=== PATIENT | male | born 1945 | race Caucasian/White ===

== ENCOUNTER 2017-02-21 20:24 | Emergency (ER) | payer MEDICARE, BC ==
--- NOTE | 2017-02-21 22:41 | UC ---
Eye Complaint HPI - HPI Summary HPI Summary: The patient comes in today for: 1. Red eyes: Onset: The patient is not able to give a history. The report comes from his who brings him in because the daughter thought he might have "pink eye." That is the only reason she brought him in. Palliative/provocative: Nothing. Quality: No pain. Region: Neither the patient nor the know which eye has "pink eye." Severity: 0/10 Associated symptoms: Discharge: None. Vision: No change. Previous eye problems: None. * - History of Current Complaint Chief Complaint: UCEye Stated Complaint: EYE COMPLAINT Time Seen by Provider: 02/21/17 22:32 Hx Obtained From: Patient - Allergies/Home Medications Allergies/Adverse Reactions: Allergies Allergy/AdvReac Type Severity Reaction Status Date / Time Shellfish Allergy Allergy Mild Nausea Verified 02/21/17 21:54 PMH/Surg Hx/FS Hx/Imm Hx Previously Healthy: No - "weak bones." Endocrine History Of: Reports: Dyslipidemia Denies: Diabetes, Thyroid Disease, Hyperthyroidism, Hypothyroidism Cardiovascular History Of: Reports: Hypertension Denies: Cardiac Disorders, Pacemaker/ICD, Myocardial Infarction, Congestive Heart Failure, Atrial Fibrillation, Deep Vein Thrombosis, Bleeding Disorders Respiratory History Of: Denies: COPD, Asthma, Bronchitis, Pneumonia, Pulmonary Embolism GI/ History Of: Denies: Gastroesophageal Reflux, Ulcer, Gastrointestinal Bleed, Gall Bladder Disease, Kidney Stones, Diverticulitis, Renal Disease, Urosepsis Neurological History Of: Denies: TIA, CVA, Dementia, Seizures, Migraine Psychological History Of: Denies: Anxiety, Depression, Bipolar Disorder, Schizophrenia, Post Traumatic Stress Disorder Cancer History Of: Denies: Lung Cancer, Colorectal Cancer, Breast Cancer, Prostate Cancer, Cervical Cancer Other History Of: Anticoagulant Therapy - Baby aspirin 81 mg daily. Negative For: HIV, Hepatitis B, Hepatitis C - Surgical History Surgical History: Yes Surgery Procedure, Year, and Place: Back. Finger Amputations. Carotid Arteries - Family History Known Family History: Negative: Cardiac Disease, Hypertension - Social History Occupation: Retired Lives: With Family Alcohol Use: None Substance Use Type: None Smoking Status (MU): Former Smoker When Did the Patient Quit Smoking/Using Tobacco: 2012 - Immunization History Most Recent Influenza Vaccination: 2016 Most Recent Pneumonia Vaccination: 2016 Review of Systems Constitutional: Negative Skin: Negative Eyes: Negative ENT: Negative Respiratory: Negative Cardiovascular: Negative Gastrointestinal: Negative Genitourinary: Negative All Other Systems Reviewed And Are Negative: Yes Physical Exam Triage Information Reviewed: Yes Appearance: Well-Appearing, No Pain Distress, Well-Nourished, Other: - The states that he will stare off into space from time to time, but otherwise was not showing any mental problems. He was a bit slow in answering my questions, but according to his age, not much different than expected. He does not have any complaints. Vital Signs: Initial Vital Signs Temp 101 F 02/21/17 22:00 Pulse 104 02/21/17 22:00 Resp 20 02/21/17 22:00 BP 161/67 02/21/17 22:00 Pulse Ox 100 02/21/17 22:00 Vital Signs Reviewed: Yes Eyes: Positive: Conjunctiva Clear. Negative: Discharge ENT: Positive: Hearing grossly normal. Negative: Pharyngeal erythema, Nasal congestion, Nasal drainage, Tonsillar swelling, Tonsillar exudate Dental: Negative: Gross Decay/Caries @, Dental Fracture @ Neck: Positive: Supple, Nontender, No Lymphadenopathy. Negative: Nuchal Rigidity Respiratory: Positive: Lungs clear, No respiratory distress, No accessory muscle use. Negative: Decreased breath sounds, Rhonchi Cardiovascular: Positive: RRR, No Murmur Abdomen Description: Positive: Nontender, No Organomegaly, Soft. Negative: Distended, Guarding Musculoskeletal: Positive: Strength Intact, ROM Intact, No Edema Neurological: Positive: Alert, Muscle Tone Normal Psychological: Positive: Age Appropriate Behavior, Consolable Skin: Negative: rashes, breakdown Diagnostics - Laboratory Diagnostic Studies Completed/Ordered: Urine screen: Specific gravity: 1.025. WBC: None. Nitrite: (-). Blood: 1+. Protein: 2+. Glucose: (-) Eye Complaint Course/Dx - Course Course Of Treatment: The patient was told that his urine was unremarkable for infection. He was offered Tylenol for this fever, but he declined. He states that he did not have any problems and that he felt normal. - Differential Dx/Diagnosis Differential Diagnosis/HQI/PQRI: Conjunctivitis, Foreign Body, Glaucoma Provider Diagnoses: Conjunctivitis resolved. Discharge - Discharge Plan Condition: Stable Disposition: HOME Patient Education Materials: Conjunctivitis (ED), Fever in Adults (ED) Referrals: Govind Vann MD [Primary Care Provider] - 3 Days (Please see your primary care provider in the next 2-3 days for re-evaluation. If you get worse, please be seen sooner.)
[2017-02-21 22:47] VITALS: BP 136/70
== END 2017-02-22 00:03 | disposition home or self-care (01) ==
LOC: UCEAST 20:24
DX: H57.8 Other specified disorders of eye and adnexa (principal); E78.5 Hyperlipidemia, unspecified; I10 Essential (primary) hypertension; Z79.82 Long term (current) use of aspirin; Z89.029 Acquired absence of unspecified finger(s); Z87.891 Personal history of nicotine dependence
CPT/HCPCS: 81003; 99212; G0463

== ENCOUNTER 2017-02-22 13:22 | Emergency (ER) | payer MEDICARE, BC ==
[2017-02-22] MEDS ORDERED: NS 0.9% 1000 ML* 1,000 ML IV ONE (14:13)
--- NOTE | 2017-02-22 14:37 | RAD ---
HISTORY: Altered mental status COMPARISONS: June 07, 2009 TECHNIQUE: Multiple contiguous axial CT scans were obtained of the head without intravenous contrast. FINDINGS: HEMORRHAGE/INFARCT: There is no hemorrhage or acute infarct. MASSES/SHIFT: There is no mass or shift. EXTRA-AXIAL SPACES: There are no extra-axial fluid collections. SULCI AND VENTRICLES: The sulci and ventricles are normal in size and position for the patient's stated age. CEREBRUM: There are no focal parenchymal abnormalities. BRAINSTEM: There are no focal parenchymal abnormalities. CEREBELLUM: There are no focal parenchymal abnormalities. VESSELS: The vessels are grossly normal. PARANASAL SINUSES: There are-fluid levels within the maxillary sinuses bilaterally. There is mucosal thickening of ethmoid air cells. ORBITS: The orbits are unremarkable. BONES AND SOFT TISSUE: No bone or soft tissue abnormalities are noted. OTHER: None IMPRESSION: NO ACUTE INTRACRANIAL PATHOLOGY. MODERATE SINUS MUCOSAL INFLAMMATORY DISEASE, WITH AIR-FLUID LEVELS IN THE MAXILLARY SINUSES. IN THE CORRECT CLINICAL SETTING, THIS MAY REPRESENT ACUTE SINUSITIS
[2017-02-22 14:55] LABS: Hematocrit 39 % (42-52); Hemoglobin 13.1 g/dl (14.0-18.0); Mean Corpuscular HGB Conc 33 g/dl (31-36); Mean Corpuscular Hemoglobin 32 pg (27-31); Mean Corpuscular Volume 96 fL (80-94); Mean Platelet Volume 8 um3 (7.4-10.4); Red Cell Distribution Width 13 % (10.5-15); White Blood Count 8.3 10^3/ul (3.5-10.8)
--- NOTE | 2017-02-22 14:58 | RAD ---
HISTORY: Altered mental status COMPARISONS: April 30, 2012 VIEWS:1: Single frontal portable view of the chest at 2:45 PM FINDINGS: LINES AND TUBES: None. CARDIOMEDIASTINAL SILHOUETTE: The cardiomediastinal silhouette is normal for portable technique. PLEURA: The costophrenic angles are sharp. No pleural abnormalities are noted. LUNG PARENCHYMA: There is hyperinflation. ABDOMEN: The upper abdomen is clear. There is no subphrenic gas. BONES AND SOFT TISSUES: No bone or soft tissue abnormalities are noted. IMPRESSION: NO ACTIVE CARDIOPULMONARY DISEASE.
[2017-02-22 14:59] LABS: Urine Bacteria Absent (Absent); Urine Bilirubin Negative (Negative); Urine Glucose 1+(50 mg/dL) (Negative); Urine Nitrite Negative (Negative)
[2017-02-22 15:13] LABS: ALT 14 U/L (7-52); AST 25 U/L (13-39); Albumin 4.1 g/dL (3.2-5.2); Alkaline Phosphatase 56 U/L (34-104); Anion Gap 8 mmol/L (2-11); BUN/Creatinine Ratio 15.6 (8-20); Blood Urea Nitrogen 12 mg/dL (6-24); CO2 Carbon Dioxide 26 mmol/L (22-32); Calcium 9.5 mg/dL (8.6-10.3); Chloride 95 mmol/L (101-111); Creatine Kinase 292 U/L (10-223); EGFR African American 128.8 (>60); EGFR Non-African American 100.2 (>60); Glucose 101 mg/dL (70-100); Potassium 3.8 mmol/L (3.5-5.0); Sodium 129 mmol/L (133-145); Total Protein 7.1 g/dL (6.4-8.9); Troponin I 0.01 ng/mL (<0.04)
[2017-02-22 15:14] LABS: Benzodiazepine Urine Screen None Detected (None Detect)
[2017-02-22 15:41] LABS: Acetaminophen < 15 mcg/mL; Alcohol < 10 mg/dL (<10)
[2017-02-22 15:50] LABS: TSH (Thyroid Stimulating Horm) 1.39 mcIU/mL (0.34-5.60)
[2017-02-22] MEDS ORDERED: Fluticasone NASAL SPRAY 50MCG* 16 gm SPRAY BTL BOTH NARES ONE (17:24)
[2017-02-22] MEDS ORDERED: Amoxicillin/Clavulanate TAB* 875 MG PO ONE (17:24)
[2017-02-22 17:59] VITALS: BP 126/59
--- NOTE | 2017-02-23 07:46 | ED ---
Glenis Causey Matthew, scribed for Rajiv Garcia MD on 02/22/17 at 1411 . Altered Mental Status - HPI Summary HPI Summary: A 71 y/o male presents to the ED with confusion since 08:00. Since onset his confusion has mostly alleviated. He is A&Ox3, but slow to answer questions. Per the , the patient was found staring off and confused this morning at 08:00. He was unable to get dressed at that time and his had to help him. Yesterday, the patient was normal. He's not having any pain currently. He had a fever of 100.9 last night and eye redness. He was taken to [facility], at that time, because his daughter thought he had "pink eye". He's also c/o of post nasal drip and rhinorrhea. - History Of Current Complaint Chief Complaint: EDNeurologicalDeficit Stated Complaint: CONFUSSION Time Seen by Provider: 02/22/17 13:52 Hx Obtained From: Patient, Family/Quality Intern Onset/Duration: Resolved Timing: Lasting Hours Severity Initially: Moderate Severity Currently: Mild Character: Confusion Aggravating Factor(s): Nothing Alleviating Factor(s): Nothing Associated Signs And Symptoms: Positive: Fever - yesterday since resolved - Allergies/Home Medications Allergies/Adverse Reactions: Allergies Allergy/AdvReac Type Severity Reaction Status Date / Time Shellfish Allergy Allergy Mild Nausea Verified 02/21/17 21:54 Home Medications: Home Medications Alendronate (NF) [Fosamax (NF)] 70 mg PO WEEKLY 02/22/17 [History Confirmed 10/29] Aspirin Low Dose CHEW TAB* [Aspirin Low Dose TAB*] 81 mg PO DAILY 02/22/17 [ History Confirmed 02/22/17] Calcium Carbonate-Cholecalcife [Calcium 600 + D 600-200 mg-Unit] 2 tab PO DAILY 02/22/17 [History Confirmed 02/22/17] Losartan TAB* [Cozaar TAB*] 50 mg PO DAILY 02/22/17 [History Confirmed 02/22/17] Rosuvastatin (NF) [Crestor (NF)] 5 mg PO DAILY 02/22/17 [History Confirmed 02/22] PMH/Surg Hx/FS Hx/Imm Hx Endocrine/Hematology History: Reports: Hx Anticoagulant Therapy - Baby aspirin 81 mg daily. Denies: Hx Diabetes, Hx Thyroid Disease Cardiovascular History: Reports: Hx Hypercholesterolemia, Hx Hypertension Denies: Hx Congestive Heart Failure, Hx Deep Vein Thrombosis, Hx Myocardial Infarction, Hx Pacemaker/ICD Respiratory History: Denies: Hx Asthma, Hx Chronic Obstructive Pulmonary Disease (COPD), Hx Lung Cancer, Hx Pneumonia, Hx Pulmonary Embolism GI History: Denies: Hx Gall Bladder Disease, Hx Gastrointestinal Bleed, Hx Ulcer, Hx Urosepsis History: Denies: Hx Kidney Stones, Hx Renal Disease Musculoskeletal History: Reports: Other Musculoskeletal History - back surgery Neurological History: Denies: Hx Dementia, Hx Migraine, Hx Seizures, Hx Transient Ischemic Attacks (TIA) Psychiatric History: Denies: Hx Anxiety, Hx Depression, Hx Schizophrenia, Hx Bipolar Disorder - Surgical History Surgery Procedure, Year, and Place: Back. Finger Amputations. Carotid Arteries Infectious Disease History: No Infectious Disease History: Denies: Traveled Outside the [place] in Last 30 Days - Family History Known Family History: Negative: Cardiac Disease, Hypertension - Social History Alcohol Use: None Substance Use Type: Reports: None Smoking Status (MU): Former Smoker Review of Systems Constitutional: Negative Positive: Fever - yesterday since resolved Eyes: Negative ENT: Other - post nasal drip Positive: Nasal Discharge Cardiovascular: Negative Respiratory: Negative Gastrointestinal: Negative Genitourinary: Negative Musculoskeletal: Negative Skin: Negative Neurological: Other - confusion Psychological: Normal All Other Systems Reviewed And Are Negative: Yes Physical Exam - Summary Physical Exam Summary: VITAL SIGNS: Reviewed. GENERAL: Patient is a well developed and nourished male who is lying comfortable in the stretcher. Patient is not in any acute respiratory distress. HEAD AND FACE: No signs of trauma. No ecchymosis, hematomas or skull depressions. No sinus tenderness. EYES: PERRLA, EOMI x 2, No injected conjunctiva, no nystagmus. No photophobia. EARS: Hearing grossly intact. Ear canals and tympanic membranes are within normal limits. MOUTH: Oropharynx within normal limits. NECK: Supple, trachea is midline, no adenopathy, no JVD, no carotid bruit, no c- spine tenderness, neck with full ROM. No meningeal signs, no Kernig's or brudzinskis signs. CHEST: Symmetric, no tenderness at palpation LUNGS: Clear to auscultation bilaterally. No wheezing or crackles. CVS: Regular rate and rhythm, S1 and S2 present, no murmurs or gallops appreciated. ABDOMEN: Soft, non-tender. No signs of distention. No rebound no guarding, and no masses palpated. Bowel sounds are normal. EXTREMITIES: FROM in all major joints, no edema, no cyanosis or clubbing. NEURO: Alert and oriented x 3. No acute neurological deficits. Speech is normal and follows commands. SKIN: Dry and warm Triage Information Reviewed: Yes Vital Signs On Initial Exam: Initial Vitals Temp Pulse Resp BP Pulse Ox 98.6 F 82 14 147/58 100 02/22/17 13:38 02/22/17 13:38 02/22/17 13:38 02/22/17 13:38 02/22/17 13:38 Vital Signs Reviewed: Yes - Jamarcus Coma Scale Coma Scale Total: 15 Diagnostics - Vital Signs Vital Signs Temp Pulse Resp BP Pulse Ox 02/22/17 13:42 98.6 F 91 16 147/58 100 02/22/17 13:38 98.6 F 82 14 147/58 100 - Laboratory Lab Results: Lab Results 02/22/17 02/22/17 02/22/17 Range/Units 14:40 14:40 14:40 WBC 8.3 (3.5-10.8) 10^3/ul RBC 4.10 (4.0-5.4) 10^6/ul Hgb 13.1 L (14.0-18.0) g/dl Hct 39 L (42-52) % MCV 96 H (80-94) fL MCH 32 H (27-31) pg MCHC 33 (31-36) g/dl RDW 13 (10.5-15) % Plt Count 190 (150-450) 10^3/ul MPV 8 (7.4-10.4) um3 Neut % (Auto) 81.0 (38-83) % Lymph % (Auto) 8.3 L (25-47) % Kern % (Auto) 10.4 H (1-9) % Eos % (Auto) 0 (0-6) % Baso % (Auto) 0.3 (0-2) % Absolute Neuts (auto) 6.7 (1.5-7.7) 10^3/ul Absolute Lymphs (auto) 0.7 L (1.0-4.8) 10^3/ul Absolute Monos (auto) 0.9 H (0-0.8) 10^3/ul Absolute Eos (auto) 0 (0-0.6) 10^3/ul Absolute Basos (auto) 0 (0-0.2) 10^3/ul Absolute Nucleated RBC 0 10^3/ul Nucleated RBC % 0 Sodium 129 L (133-145) mmol/L Potassium 3.8 (3.5-5.0) mmol/L Chloride 95 L (101-111) mmol/L Carbon Dioxide 26 (22-32) mmol/L Anion Gap 8 (2-11) mmol/L BUN 12 (6-24) mg/dL Creatinine 0.77 (0.67-1.17) mg/dL Est GFR ( Amer) 128.8 (>60) Est GFR (Non-Af Amer) 100.2 (>60) BUN/Creatinine Ratio 15.6 (8-20) Glucose 101 H (70-100) mg/dL Lactic Acid (0.5-2.0) mmol/L Calcium 9.5 (8.6-10.3) mg/dL Magnesium 2.0 (1.9-2.7) mg/dL Total Bilirubin 0.80 (0.2-1.0) mg/dL AST 25 (13-39) U/L ALT 14 (7-52) U/L Alkaline Phosphatase 56 (34-104) U/L Ammonia 27 (16-53) mol/L Total Creatine Kinase 292 H (10-223) U/L Troponin I 0.01 (<0.04) ng/mL Total Protein 7.1 (6.4-8.9) g/dL Albumin 4.1 (3.2-5.2) g/dL Globulin 3.0 (2-4) g/dL Albumin/Globulin Ratio 1.4 (1-3) TSH Pending Urine Color Urine Appearance Urine pH (5-9) Ur Specific [place] (1.010-1.030) Urine Protein (Negative) Urine Ketones (Negative) Urine Blood (Negative) Urine Nitrate (Negative) Urine Bilirubin (Negative) Urine Urobilinogen (Negative) Ur Leukocyte Esterase (Negative) Urine WBC (Auto) (Absent) Urine RBC (Auto) (Absent) Urine Bacteria (Absent) Urine Glucose (Negative) Urine Opiates Screen (None Detect) Acetaminophen Pending Ur Barbiturates Screen (None Detect) Ur Phencyclidine Scrn (None Detect) Ur Amphetamines Screen (None Detect) U Benzodiazepines Scrn (None Detect) Urine Cocaine Screen (None Detect) U Cannabinoids Screen (None Detect) Serum Alcohol Pending 02/22/17 02/22/17 02/22/17 Range/Units 14:40 14:45 14:45 WBC (3.5-10.8) 10^3/ul RBC (4.0-5.4) 10^6/ul Hgb (14.0-18.0) g/dl Hct (42-52) % MCV (80-94) fL MCH (27-31) pg MCHC (31-36) g/dl RDW (10.5-15) % Plt Count (150-450) 10^3/ul MPV (7.4-10.4) um3 Neut % (Auto) (38-83) % Lymph % (Auto) (25-47) % Kern % (Auto) (1-9) % Eos % (Auto) (0-6) % Baso % (Auto) (0-2) % Absolute Neuts (auto) (1.5-7.7) 10^3/ul Absolute Lymphs (auto) (1.0-4.8) 10^3/ul Absolute Monos (auto) (0-0.8) 10^3/ul Absolute Eos (auto) (0-0.6) 10^3/ul Absolute Basos (auto) (0-0.2) 10^3/ul Absolute Nucleated RBC 10^3/ul Nucleated RBC % Sodium (133-145) mmol/L Potassium (3.5-5.0) mmol/L Chloride (101-111) mmol/L Carbon Dioxide (22-32) mmol/L Anion Gap (2-11) mmol/L BUN (6-24) mg/dL Creatinine (0.67-1.17) mg/dL Est GFR ( Amer) (>60) Est GFR (Non-Af Amer) (>60) BUN/Creatinine Ratio (8-20) Glucose (70-100) mg/dL Lactic Acid 2.0 (0.5-2.0) mmol/L Calcium (8.6-10.3) mg/dL Magnesium (1.9-2.7) mg/dL Total Bilirubin (0.2-1.0) mg/dL AST (13-39) U/L ALT (7-52) U/L Alkaline Phosphatase (34-104) U/L Ammonia (16-53) mol/L Total Creatine Kinase (10-223) U/L Troponin I (<0.04) ng/mL Total Protein (6.4-8.9) g/dL Albumin (3.2-5.2) g/dL Globulin (2-4) g/dL Albumin/Globulin Ratio (1-3) TSH Urine Color Yellow Urine Appearance Clear Urine pH 6.0 (5-9) Ur Specific [place] 1.012 (1.010-1.030) Urine Protein 1+(30 mg/dl) H (Negative) Urine Ketones Trace H (Negative) Urine Blood 1+ H (Negative) Urine Nitrate Negative (Negative) Urine Bilirubin Negative (Negative) Urine Urobilinogen Negative (Negative) Ur Leukocyte Esterase Negative (Negative) Urine WBC (Auto) Absent (Absent) Urine RBC (Auto) 1+(3-5/hpf) H (Absent) Urine Bacteria Absent (Absent) Urine Glucose 1+(50 mg/dl) H (Negative) Urine Opiates Screen None detected (None Detect) Acetaminophen Ur Barbiturates Screen None detected (None Detect) Ur Phencyclidine Scrn None detected (None Detect) Ur Amphetamines Screen None detected (None Detect) U Benzodiazepines Scrn None detected (None Detect) Urine Cocaine Screen None detected (None Detect) U Cannabinoids Screen None detected (None Detect) Serum Alcohol Result Diagrams: 02/22/17 14:40 02/22/17 14:40 Lab Statement: Any lab studies that have been ordered have been reviewed, and results considered in the medical decision making process. - Radiology CXR Xray Interpretation: No Acute Changes - IMPRESSION: NO ACTIVE CARDIOPULMONARY DISEASE. Radiology Interpretation Completed By: Radiologist - CT Brain CT CT Interpretation: Positive (See Comments) - IMPRESSION: NO ACUTE INTRACRANIAL PATHOLOGY. MODERATE SINUS MUCOSAL INFLAMMATORY DISEASE, WITH AIR-FLUID LEVELS IN THE MAXILLARY SINUSES. IN THE CORRECT CLINICAL SETTING, THIS MAY REPRESENT ACUTE SINUSITIS CT Interpretation Completed By: Radiologist - EKG 13:52 Cardiac Rate: NL - 83 bpm EKG Rhythm: Sinus Rhythm EKG Interpretation: No ST elevation Re-Evaluation - Re-Evaluation First Eval Re-Evaluation Time: 17:23 Change: Improved Comment: The patient was ambulated and he has a good steady walk. He has no weakness and is A&Ox3. Altered Mental Statu Course/Dx - Course Assessment/Plan: A 71 y/o male presents to the ED with confusion since 08:00. Since onset his confusion has mostly alleviated. He is A&Ox3, but slow to answer questions. Per the , the patient was found staring off and confused this morning at 08:00. He was unable to get dressed at that time and his had to help him. Yesterday, the patient was normal. He's not having any pain currently. He had a fever of 100.9 last night and a red eye. He was taken to [facility], at that time, because his daughter thought he had "pink eye". Blood work WNL except mild anemia. Sodium of 129, chloride of 95, glucose of 101. Urinalysis is negative for UTI. Urine toxicology is also negative. CXR shows no active cardiopulmonary disease. Head CT shows no acute intracranial pathology and moderate sinus mucosal inflammatory disease, with air-fluid levels in the maxillary sinuses. In the ED course, the patient was given IV fluids since the patients CPK is slightly elevated and he seems to be dehydrated. Since the CT shows that he has an acute sinusitis and hes had post nasal drips and rhinorrhea for the last 7 - 10 days, he will be given Augmentin. I self ambulated the patient and he ambulated well with a good steady walk. He is not ataxic or has an abnormal walk, Hes A&Ox3 and hemodynamically stable. He will be discharged home with his . I discussed all the findings and test results with the patient. Patient was instructed to return to the emergency room immediately if any of the symptoms return or worsens. Plan of care was discussed with the patient and understands and agrees. All questions were answered at patient satisfaction. There were no further complaints or concerns. Lung exam before discharge: CTA B/L. Good air exchange. No wheezing or crackles heard. CVS: S1 and S2 present. No murmurs appreciated. Patient is alert and oriented x 3. Patient is hemodynamically stable. Patient will be discharged home with follow up PCP in the next 2-3 days - Diagnoses Differential Diagnosis/HQI/PQRI: CVA, Intracranial Bleed, Metabolic Disorder, Seizure, TIA Discharge Diagnoses: Weakness, Acute sinusitis Discharge - Discharge Plan Condition: Stable Disposition: HOME Prescriptions: Amoxicillin/Clavulanate TAB* [Augmentin TAB 875*] 875 mg PO BID #9 tab Patient Education Materials: Amoxicillin/Clavulanate Potassium (By mouth), Sinusitis (ED), Weakness (ED) Referrals: Govind Vann MD [Primary Care Provider] - 3 Days Additional Instructions: Please follow-up with your primary care physician. The documentation as recorded by the Glenis paulino Matthew accurately reflects the service I personally performed and the decisions made by , Rajiv Garcia MD.
== END 2017-02-22 17:57 | disposition home or self-care (01) ==
LOC: ED 13:22
DX: R53.1 Weakness (principal); J01.90 Acute sinusitis, unspecified; Z79.82 Long term (current) use of aspirin; Z87.891 Personal history of nicotine dependence
CPT/HCPCS: 36415; 70450; 71010; 80053; 80307; 80320; 80329; 81003; 81015; 82140; 82550; 83605; 83735; 84443; 84484; 85025; 87040; 93005; 96360; 99284; A9270-GY; G0480

== ENCOUNTER 2017-05-03 19:55 | Emergency (ER) | payer MEDICARE, BC ==
[2017-05-03 20:01] VITALS: BP 155/89
--- NOTE | 2017-05-03 21:01 | UC ---
Eye Complaint HPI - HPI Summary HPI Summary: LEFT EYE PAIN AND REDNESS THAT BEGAN TODAY, WITH BLURRED VISION AND DROOPING LEFT EYELID. HISTORY OF BILATERAL CAROTID STENOSIS WITH REPAIR. NO TRAUMA. NO RECENT COLDS. - History of Current Complaint Chief Complaint: UCEye Stated Complaint: EYE ISSUE Time Seen by Provider: 05/03/17 20:15 Hx Obtained From: Patient, Family/Unit Control Worker Onset/Duration: Sudden Onset, Lasting Hours, Still Present Timing: Constant Severity Initially: Moderate Severity Currently: Moderate Pain Intensity: 0 Pain Scale Used: 0-10 Numeric Location of Injury: Conjunctiva, Eye Lid (upper) Character: Dull, Throbbing Aggravating Factor(s): Nothing Alleviating Factor(s): Nothing Associated Signs And Symptoms: Positive: Drainage (Clear), Vision Impairment Left, Swelling - Risk Factors Penetrating Injury Risk Factor: Negative Acute Glaucoma Risk Factors: Eye Inflammation Optic Artery Occlusion Risk Factors: Heart Disease - Allergies/Home Medications Allergies/Adverse Reactions: Allergies Allergy/AdvReac Type Severity Reaction Status Date / Time Shellfish Allergy AdvReac Mild Nausea Verified 05/03/17 20:02 PMH/Surg Hx/FS Hx/Imm Hx Previously Healthy: Yes Other History Of: Anticoagulant Therapy - Baby aspirin 81 mg daily. Negative For: HIV, Hepatitis B, Hepatitis C - Surgical History Surgical History: Yes Surgery Procedure, Year, and Place: PT HAS LEMITRIE VASCULAR XENOSURE BOVINE PATCH CONDITIONAL 6 SAFE 3T-INFO SCANNED INTO OTHER FACILITY OP REPORTS. LIFE STENT X3 POST 8 WEEKS SAFE AT 3T BARD-INFO IN MRI FOLDER. LUMBAR SPINE LAMINECTOMY L5-S1. Finger Amputations. HERNIA REPAIR. 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 STENTS IN RT LEG SUPERFICIAL ILIAC ARTERY. BOVINE PATCH CAROTID ARTERECTOMY WITH SHUNT. RT KNEE ARTHROSCOPY - Family History Known Family History: Negative: Cardiac Disease, Hypertension - Social History Occupation: Retired Lives: With Family Alcohol Use: None Substance Use Type: None Smoking Status (MU): Former Smoker When Did the Patient Quit Smoking/Using Tobacco: 2012 - Immunization History Most Recent Influenza Vaccination: 2016 Most Recent Pneumonia Vaccination: 2016 Review of Systems Constitutional: Negative Skin: Negative Eyes: Blurred Vision, Drainage, Eye Redness ENT: Negative Respiratory: Negative Cardiovascular: Negative Gastrointestinal: Negative Genitourinary: Negative Motor: Negative Neurovascular: Negative Musculoskeletal: Negative Neurological: Negative Psychological: Negative All Other Systems Reviewed And Are Negative: Yes Physical Exam Triage Information Reviewed: Yes Appearance: Well-Appearing, No Pain Distress, Well-Nourished Vital Signs: Initial Vital Signs Temp 98.8 F 05/03/17 20:01 Pulse 99 05/03/17 20:01 Resp 16 05/03/17 20:01 BP 155/89 05/03/17 20:01 Pulse Ox 95 05/03/17 20:01 Vital Signs Reviewed: Yes Eyes: Positive: Conjunctiva Inflamed, Other: - LEFT LID TREMOR AND LAG ENT Exam: Normal ENT: Positive: Normal ENT inspection, Hearing grossly normal, Pharynx normal, TMs normal Dental Exam: Normal Neck exam: Normal Neck: Positive: Supple, Nontender, No Lymphadenopathy Respiratory Exam: Normal Respiratory: Positive: Chest non-tender, Lungs clear, Normal breath sounds Cardiovascular Exam: Normal Cardiovascular: Positive: RRR, No Murmur, Pulses Normal Abdominal Exam: Normal Musculoskeletal Exam: Normal Musculoskeletal: Positive: Strength Intact, ROM Intact, No Edema Neurological Exam: Other - CN 2-12 INTACT Neurological: Positive: Alert, Muscle Tone Normal, Fatigued Psychological: Positive: Normal Response To Family Skin Exam: Normal Eye Complaint Course/Dx - Differential Dx/Diagnosis Differential Diagnosis/HQI/PQRI: Conjunctivitis, Detached Retina, Glaucoma, Retinal Artery Occlusion Provider Diagnoses: LEFT EYE PAIN, REDNESS WITH LEFT LID LAG - Physician Notification/Consults Discussed Patient Care With: Maira Bowen Time Discussed With Above Provider: 20:35 Instructed by Provider To: MD Will See In ED Discharge - Discharge Plan Condition: Stable Disposition: [facility] Referrals: Govind Vann MD [Primary Care Provider] -
== END 2017-05-03 20:30 | disposition short-term general hospital (02) ==
LOC: UCEAST 19:55
DX: H57.12 Ocular pain, left eye (principal); H57.8 Other specified disorders of eye and adnexa; H02.536 Eyelid retraction left eye, unspecified eyelid; Z79.01 Long term (current) use of anticoagulants; Z79.82 Long term (current) use of aspirin; Z95.5 Presence of coronary angioplasty implant and graft; Z95.828 Presence of other vascular implants and grafts; Z87.891 Personal history of nicotine dependence
CPT/HCPCS: 99212; G0463

== ENCOUNTER 2017-05-03 20:50 | Emergency (ER) | payer MEDICARE, BC ==
[2017-05-03 21:30] VITALS: BP 146/75
[2017-05-03] MEDS ORDERED: Ciprofloxacin 0.3% OPTH.SOL* 2.5 ML BTL LEFT EYE ONE (22:00)
--- NOTE | 2017-05-03 22:42 | ED ---
Throat Pain/Nasal Congestion - HPI Summary HPI Summary: Patient awoke this morning with a foreign body sensation in his left eye, which was also red and pain. He denies known trauma. He denies vision changes, DANIELS, fever, pain with eye movement or with bright lights. - History of Current Complaint Chief Complaint: EDEyeProblem Time Seen by Provider: 05/03/17 21:19 Hx Obtained From: Patient, Family/Tetryl Wringer Operator Onset/Duration: Gradual Onset - awoke with and progressed through the day Severity: Mild Associated Signs And Symptoms: Positive: Negative Cough: None - Allergies/Home Medications Allergies/Adverse Reactions: Allergies Allergy/AdvReac Type Severity Reaction Status Date / Time Shellfish Allergy AdvReac Mild Nausea Verified 05/03/17 20:02 PMH/Surg Hx/FS Hx/Imm Hx Endocrine/Hematology History: Reports: Hx Anticoagulant Therapy - Baby aspirin 81 mg daily. Denies: Hx Diabetes, Hx Thyroid Disease Cardiovascular History: Reports: Hx Hypercholesterolemia, Hx Hypertension - MEDICATED Denies: Hx Congestive Heart Failure, Hx Deep Vein Thrombosis, Hx Myocardial Infarction, Hx Pacemaker/ICD Respiratory History: Denies: Hx Asthma, Hx Chronic Obstructive Pulmonary Disease (COPD), Hx Lung Cancer, Hx Pneumonia, Hx Pulmonary Embolism GI History: Denies: Hx Gall Bladder Disease, Hx Gastrointestinal Bleed, Hx Ulcer, Hx Urosepsis History: Denies: Hx Kidney Stones, Hx Renal Disease Musculoskeletal History: Reports: Other Musculoskeletal History - back surgery Sensory History: Denies: Hx Contacts or Glasses, Hx Hearing Aid Opthamlomology History: Denies: Hx Contacts or Glasses Neurological History: Denies: Hx Dementia, Hx Migraine, Hx Seizures, Hx Transient Ischemic Attacks (TIA) Psychiatric History: Denies: Hx Anxiety, Hx Depression, Hx Panic Disorder, Hx Schizophrenia, Hx Bipolar Disorder - Surgical History Surgery Procedure, Year, and Place: PT HAS LEMITRIE VASCULAR XENOSURE BOVINE PATCH CONDITIONAL 6 SAFE 3T-INFO SCANNED INTO OTHER FACILITY OP REPORTS. LIFE STENT X3 POST 8 WEEKS SAFE AT 3T BARD-INFO IN MRI FOLDER. LUMBAR SPINE LAMINECTOMY L5-S1. Finger Amputations. HERNIA REPAIR. 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 STENTS IN RT LEG SUPERFICIAL ILIAC ARTERY. BOVINE PATCH CAROTID ARTERECTOMY WITH SHUNT. RT KNEE ARTHROSCOPY Infectious Disease History: No Infectious Disease History: Denies: Traveled Outside the [place] in Last 30 Days - Family History Known Family History: Positive: None Negative: Cardiac Disease, Hypertension - Social History Occupation: Retired Lives: With Family Alcohol Use: None Substance Use Type: Reports: None Smoking Status (MU): Former Smoker Review of Systems Negative: Fever Positive: Erythema - left sclera. Negative: Photophobia, Blurred Vision, Diplopia, Drainage Negative: Headache All Other Systems Reviewed And Are Negative: Yes Physical Exam Triage Information Reviewed: Yes Vital Signs On Initial Exam: Initial Vitals Temp Pulse Resp BP Pulse Ox 97.7 F 99 20 178/89 100 05/03/17 20:52 05/03/17 20:52 05/03/17 20:52 05/03/17 20:52 05/03/17 20:52 Vital Signs Reviewed: Yes Appearance: Positive: Well-Appearing, Pain Distress, Thin Skin: Positive: Warm, Skin Color Reflects Adequate Perfusion, Dry, Soft Head/Face: Positive: Normal Head/Face Inspection Eyes: Positive: EOMI, BLAKE, Conjunctiva Inflammed - left ENT: Positive: Hearing grossly normal Neck: Positive: Supple, Nontender, No Lymphadenopathy Respiratory/Lung Sounds: Positive: Breath Sounds Present Cardiovascular: Positive: RRR Musculoskeletal: Negative: Edema Left, Edema Right Neurological: Positive: Sensory/Motor Intact, Alert, Oriented to Person Place, Time, NV Bundle Intact Distally, Normal Gait Psychiatric: Positive: Affect/Mood Appropriate AVPU Assessment: Alert Procedures - Eye Procedure Alcaine Drops Administered: Yes Eye Irrigated w/ Saline (ccs): 30 Antibiotic Ointment/Drps Admin: left eye Diagnostics - Vital Signs Vital Signs Temp Pulse Resp BP Pulse Ox 05/03/17 22:19 97.3 F 70 18 146/75 05/03/17 21:23 97.7 F 77 18 146/75 100 05/03/17 20:52 97.7 F 99 20 178/89 100 - Laboratory Lab Statement: Any lab studies that have been ordered have been reviewed, and results considered in the medical decision making process. EENT Course/Dx - Differential Diagnoses Differential Diagnoses: Abrasion, Conjunctivitis, Corneal Abrasion, Detached Retina, Otitis Media, Retinal Artery Occlusion, Uveitis - Diagnoses Provider Diagnoses: Left corneal abrasion Discharge - Discharge Plan Condition: Stable Disposition: HOME Patient Education Materials: Corneal Abrasion (ED) Referrals: Govind Vann MD [Primary Care Provider] - Additional Instructions: Please use the drops provided until symptoms have been resolved for at least 24 hours. If symptoms do not improve in 2-3 days follow-up with Dr. Garcia. Use ibuprofen for pain relief. If symptoms worsen, return to the emergency department.
== END 2017-05-03 22:20 | disposition home or self-care (01) ==
LOC: ED 20:50
DX: S05.02XA Injury of conjunctiva and corneal abrasion without foreign body, left eye, initial encounter (principal); X58.XXXA Exposure to other specified factors, initial encounter; Y93.9 Activity, unspecified; Y92.9 Unspecified place or not applicable; Y99.9 Unspecified external cause status
CPT/HCPCS: 99282; A9270-GY

== ENCOUNTER 2019-05-01 08:35 | Emergency (ER) | payer MEDICARE, OTHER ==
--- NOTE | 2019-05-01 08:45 | UC ---
Cardiac HPI - HPI Summary HPI Summary: 73-year-old male 73-year-old male comes in with a chief complaint of chest pain. Patient was at home is been having diarrhea at home. He has dementia. He was too weak to get off the toilet. Came to our clinic with a chief complaint of chest pain any is pale in appearance. he's nonverbal. He is pale and sweaty. - History of Current Complaint Stated Complaint: CHEST PAIN SOB Time Seen by Provider: 05/01/19 08:44 - Allergy/Home Medications Allergies/Adverse Reactions: Allergies Allergy/AdvReac Type Severity Reaction Status Date / Time shellfish derived Allergy Nausea Verified 05/01/19 08:50 Home Medications: Home Medications Anxiety Med 05/01/19 [History] Loperamide HCl [Imodium A-D] 1 tab PO ONCE PRN 05/01/19 [History Confirmed 05/01] Multivitamin [Multivitamins] 1 tab PO DAILY 05/01/19 [History Confirmed 05/01/19 ] PMH/Surg Hx/FS Hx/Imm Hx Previously Healthy: Yes - DEMENTIA Endocrine History: Dyslipidemia Cardiovascular History: Hypertension Other History Of: Anticoagulant Therapy - Baby aspirin 81 mg daily. Negative For: HIV, Hepatitis B, Hepatitis C - Surgical History Surgical History: Yes Surgery Procedure, Year, and Place: PT HAS LEMITRIE VASCULAR XENOSURE BOVINE PATCH CONDITIONAL 6 SAFE 3T-INFO SCANNED INTO OTHER FACILITY OP REPORTS. LIFE STENT X3 POST 8 WEEKS SAFE AT 3T BARD-INFO IN MRI FOLDER. LUMBAR SPINE LAMINECTOMY L5-S1. Finger Amputations. HERNIA REPAIR. 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 STENTS IN RT LEG SUPERFICIAL ILIAC ARTERY. BOVINE PATCH CAROTID ARTERECTOMY WITH SHUNT. RT KNEE ARTHROSCOPY - Family History Known Family History: Positive: None Negative: Cardiac Disease, Hypertension - Social History Alcohol Use: None Substance Use Type: None Smoking Status (MU): Former Smoker When Did the Patient Quit Smoking/Using Tobacco: 2012 - Immunization History Most Recent Influenza Vaccination: 2016 Most Recent Pneumonia Vaccination: 2016 Review of Systems All Other Systems Reviewed And Are Negative: Yes Constitutional: Positive: Other - SEE HPI Skin: Positive: Other - PALE Eyes: Positive: Negative ENT: Positive: Negative Cardiovascular: Positive: Chest Pain Gastrointestinal: Positive: Diarrhea Motor: Positive: Weakness Neurovascular: Positive: Negative Neurological: Positive: Weakness Psychological: Positive: Negative Is Patient Immunocompromised?: No Physical Exam Triage Information Reviewed: Yes Completion Of Physical Exam Limited Due To: Dementia Appearance: Ill-Appearing, Thin Eyes: Positive: Conjunctiva Clear Neck: Positive: Supple Respiratory: Positive: Lungs clear, Normal breath sounds Cardiovascular: Positive: Tachycardia Musculoskeletal: Positive: Other: - GENERALIZED WEAKNESS Neurological: Positive: Other: - NOT TALKING Psychological: Positive: Other: - NON VERBAL Skin: Positive: Other - PALE Diagnostics - EKG Cardiac Rate: Tachycardia - AT 0836 Cardiac Rhythm: Sinus: Normal - 127BPM Ectopy: None ST Segment: Non-Specific - Assessment/Plan Course Of Treatment: 2 IVS OBTAINED, NS STARTED. TRANSPORTED TO ED VIA AMBULANCE. - Clinical Impression Provider Diagnosis: Chest pain Discharge - Sign-Out/Discharge Documenting (check all that apply): Patient Departure All imaging exams completed and their final reports reviewed: No Studies - Discharge Plan Condition: Guarded Disposition: TRANS HIGHER L OF CARE FAC Patient Education Materials: Chest Pain (ED) Referrals: Govind Vann MD [Primary Care Provider] - - Billing Disposition and Condition Condition: GUARDED Disposition: Trans Higher Lvl of Care Fac
[2019-05-01] MEDS ORDERED: NS 0.9% 1000 ML** 1,000 ML IV ONE (08:49)
[2019-05-01 08:54] VITALS: BP 157/71
== END 2019-05-01 09:07 | disposition short-term general hospital (02) ==
LOC: UCEAST 08:35
DX: R07.9 Chest pain, unspecified (principal); R19.7 Diarrhea, unspecified; F03.90 Unspecified dementia, unspecified severity, without behavioral disturbance, psychotic disturbance, mood disturbance, and anxiety; E78.5 Hyperlipidemia, unspecified; I10 Essential (primary) hypertension; F41.9 Anxiety disorder, unspecified; Z79.82 Long term (current) use of aspirin; Z87.891 Personal history of nicotine dependence
CPT/HCPCS: 96361; 99213; G0463

== ENCOUNTER 2019-05-01 09:20 | Inpatient (IN) | payer MEDICARE, OTHER ==
[2019-05-01] MEDS ORDERED: Piperacillin/Tazobac ADVAN(*) 3.375 GM in NS 0.9% 100 ML* 100 ML IVPB ONE ×2 (09:40→12:09)
[2019-05-01] MEDS ORDERED: NS 0.9% 1000 ML** 1,000 ML IV.FLUID IV ONE (09:40)
[2019-05-01] MEDS ORDERED: Vancomycin(*) 750 MG in NS 0.9% 250 ML* 250 ML IVPB ONE (09:42)
[2019-05-01] MEDS ORDERED: Acetaminophen TAB* 325 MG PO ONE (09:50)
[2019-05-01] MEDS ORDERED: Azithromycin 500 mg/250 ml NS 500 MG/250 ML BAG IVPB ONE (09:56)
[2019-05-01] MEDS ORDERED: cefTRIAXone(*) 1 GM in NS 0.9% 50 ML* 50 ML IVPB ONE (09:56)
[2019-05-01 10:17] LABS: ABS Lymphocytes 0.2 10^3/ul (1.0-4.8); ABS Neutrophils 11.4 10^3/ul (1.5-7.7); Hematocrit 37 % (42-52); Lymphocyte % 1.8 %; Mean Corpuscular HGB Conc 33 g/dL (31-36); Mean Corpuscular Hemoglobin 32 pg (27-31); Mean Corpuscular Volume 99 fL (80-94); Mean Platelet Volume 7.7 fL (7.4-10.4); Platelet Count 282 10^3/uL (150-450); Red Blood Count 3.73 10^6 /uL (4.18-5.48); Red Cell Distribution Width 14 % (10-15); White Blood Count 12.6 10^3/uL (3.5-10.8)
[2019-05-01 10:28] LABS: Activated Partial Thrombo Time 32.4 seconds (26.0-38.0); INR 1.23 (0.82-1.09)
[2019-05-01 10:38] LABS: Albumin 3.8 g/dL (3.2-5.2); Albumin/Globulin Ratio 1.2 (1-3); BUN/Creatinine Ratio 27.3 (8-20); C Reactive Protein 103.06 mg/L (<8.01); Calcium 9.4 mg/dL (8.6-10.3); EGFR African American 120.5 (>60); EGFR Non-African American 99.6 (>60); Globulin 3.1 g/dL (2-4); Potassium 3.9 mmol/L (3.5-5.0); Total Bilirubin 0.6 mg/dL (0.2-1.0); Total Protein 6.9 g/dL (6.4-8.9); Troponin I 0.02 ng/mL (<0.04)
[2019-05-01] MEDS ORDERED: Acetaminophen ADULT LIQ* 650 MG/20.3 ML UDC PO ONE (11:00)
[2019-05-01 11:06] LABS: Urine Appearance Cloudy; Urine Bacteria Absent (Absent); Urine Bilirubin Negative (Negative); Urine Blood 2+ (Negative); Urine Color Amber; Urine Glucose Negative (Negative); Urine Ketones Negative (Negative); Urine Nitrite Negative (Negative); Urine Protein 2+(100 mg/dL) (Negative); Urine Red Blood Cell 3+(>10/hpf) (Absent); Urine Specific Gravity 1.026 (1.010-1.030); Urine Squamous Epithelial Cell Present (Absent); Urine Urobilinogen Negative (Negative); Urine White Blood Cell 1+(6-10/hpf) (Absent)
--- NOTE | 2019-05-01 11:06 | ED ---
Sepsis HPI - HPI Summary HPI Summary: Patient is a 73-year-old male with a PMHx of dementia, alzheimers and CVD with 2 endarterectomies presenting [facility] the ED from [facility] with weakness per (primary caregiver.) Patient is non-verbal. states she attempted to get him from the toilet this morning and was unable to lift him as he usually helps with standing. He has had 2 days of diarrhea and worsening weakness. gives full hx. Cough without production (usually at baseline, but worse), appearing more pale and diarrhea. Denies malodorous diarrhea or color changes. Denies obvious UA sxs such as gross hematuria or obstruction. No hx of UTI s. Patient does not c/o so it is difficult to assess if pt is sick (per ). - History of Current Complaint Chief Complaint: EDAltMentalStatus Time Seen by Provider: 05/01/19 09:29 Stated Complaint: CHEST PAINS PER PT Hx Obtained From: Patient Onset/Duration: Started Days Ago Timing: Constant Onset Severity: Moderate Current Severity: Moderate Pain Intensity: 0 Pain Scale Used: 0-10 Numeric Aggravating Symptom(s): Unknown Alleviating Factor(s): Unknown - Risk Factor(s) Pseudomonas Risk Factors: Chronic Lung Disease - Allergy/Home Medications Allergies/Adverse Reactions: Allergies Allergy/AdvReac Type Severity Reaction Status Date / Time shellfish derived Allergy Nausea Verified 05/01/19 08:50 PMH/Surg Hx/FS Hx/Imm Hx Previously Healthy: Yes Endocrine/Hematology History: Reports: Hx Anticoagulant Therapy - Baby aspirin 81 mg daily. Denies: Hx Diabetes, Hx Thyroid Disease Cardiovascular History: Reports: Hx Hypercholesterolemia, Hx Hypertension - MEDICATED Denies: Hx Congestive Heart Failure, Hx Deep Vein Thrombosis, Hx Myocardial Infarction, Hx Pacemaker/ICD Respiratory History: Denies: Hx Asthma, Hx Chronic Obstructive Pulmonary Disease (COPD), Hx Lung Cancer, Hx Pneumonia, Hx Pulmonary Embolism GI History: Denies: Hx Gall Bladder Disease, Hx Gastrointestinal Bleed, Hx Ulcer, Hx Urosepsis History: Denies: Hx Kidney Stones, Hx Renal Disease Musculoskeletal History: Reports: Other Musculoskeletal History - back surgery Sensory History: Denies: Hx Contacts or Glasses, Hx Hearing Aid Opthamlomology History: Denies: Hx Contacts or Glasses Neurological History: Denies: Hx Dementia, Hx Migraine, Hx Seizures, Hx Transient Ischemic Attacks (TIA) Psychiatric History: Denies: Hx Anxiety, Hx Depression, Hx Panic Disorder, Hx Schizophrenia, Hx Bipolar Disorder - Surgical History Surgery Procedure, Year, and Place: PT HAS LEMITRIE VASCULAR XENOSURE BOVINE PATCH CONDITIONAL 6 SAFE 3T-INFO SCANNED INTO OTHER FACILITY OP REPORTS. LIFE STENT X3 POST 8 WEEKS SAFE AT 3T BARD-INFO IN MRI FOLDER. LUMBAR SPINE LAMINECTOMY L5-S1. Finger Amputations. HERNIA REPAIR. 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 STENTS IN RT LEG SUPERFICIAL ILIAC ARTERY. BOVINE PATCH CAROTID ARTERECTOMY WITH SHUNT. RT KNEE ARTHROSCOPY - Immunization History Hx Pertussis Vaccination: No Immunizations Up to Date: Yes Infectious Disease History: No Infectious Disease History: Denies: Traveled Outside the [place] in Last 30 Days - Family History Known Family History: Positive: None Negative: Cardiac Disease, Hypertension - Social History Occupation: Unemployed Lives: With Family Alcohol Use: None Hx Substance Use: No Substance Use Type: Reports: None Smoking Status (MU): Former Smoker Review of Systems - ROS Summary Review of Systems Summary: ROS/HPI per ; pt non-verbal Constitutional: Other - pale Positive: Skin Diaphoresis. Negative: Fever, Chills, Fatigue Negative: Palpitations, Chest Pain Positive: Cough. Negative: Shortness Of Breath Positive: Diarrhea. Negative: Abdominal Pain, Vomiting, Nausea Genitourinary: Negative Positive: see HPI Negative: Arthralgia, Myalgia Skin: Negative All Other Systems Reviewed And Are Negative: Yes Physical Exam Triage Information Reviewed: Yes Vital Signs On Initial Exam: Initial Vitals Temp Pulse Resp BP Pulse Ox 102 F 121 24 161/84 91 05/01/19 09:31 05/01/19 09:31 05/01/19 09:31 05/01/19 09:31 05/01/19 09:31 Vital Signs Reviewed: Yes Completion Of Physical Exam Limited Due To: Dementia Appearance: Positive: No Pain Distress, Ill-Appearing Skin: Positive: Diaphoretic, Pale Head/Face: Positive: Normal Head/Face Inspection Eyes: Positive: EOMI, Conjunctiva Clear Neck: Positive: No Lymphadenopathy Respiratory/Lung Sounds: Positive: Rhonchi - throughout, Other - patient non- verbal. Negative: Wheezes Cardiovascular: Positive: Pulses are Symmetrical in both Upper and Lower Extremities, Tachycardia. Negative: Leg Edema Left, Leg Edema Right Abdomen Description: Positive: Nontender, No Organomegaly, Soft. Negative: CVA Tenderness (R), CVA Tenderness (L) Musculoskeletal: Positive: Normal - moving all extremities well Neurological: Positive: Other - dementia at baseline AVPU Assessment: Alert Diagnostics - Vital Signs Vital Signs Temp Pulse Resp BP Pulse Ox 05/01/19 09:43 93 05/01/19 09:31 102 F 121 24 161/84 91 - Laboratory Lab Results: Lab Results 05/01/19 05/01/19 05/01/19 Range/Units 09:59 09:59 09:59 WBC 12.6 H (3.5-10.8) 10^3/uL RBC 3.73 L (4.18-5.48) 10^6 /uL Hgb 12.0 L (14.0-18.0) g/dL Hct 37 L (42-52) % MCV 99 H (80-94) fL MCH 32 H (27-31) pg MCHC 33 (31-36) g/dL RDW 14 (10-15) % Plt Count 282 (150-450) 10^3/uL MPV 7.7 (7.4-10.4) fL Neut % (Auto) 90.4 % Lymph % (Auto) 1.8 % Kings % (Auto) 7.8 % Eos % (Auto) 0.0 % Baso % (Auto) 0.0 % Absolute Neuts (auto) 11.4 H (1.5-7.7) 10^3/ul Absolute Lymphs (auto) 0.2 L (1.0-4.8) 10^3/ul Absolute Monos (auto) 1.0 H (0-0.8) 10^3/ul Absolute Eos (auto) 0.0 (0-0.6) 10^3/ul Absolute Basos (auto) 0.0 (0-0.2) 10^3/ul Absolute Nucleated RBC 0.0 10^3/ul Nucleated RBC % 0.0 ESR Pending INR (Anticoag Therapy) 1.23 H (0.82-1.09) APTT 32.4 (26.0-38.0) seconds Sodium 138 (135-145) mmol/L Potassium 3.9 (3.5-5.0) mmol/L Chloride 104 (101-111) mmol/L Carbon Dioxide 23 (22-32) mmol/L Anion Gap 11 (2-11) mmol/L BUN 21 (6-24) mg/dL Creatinine 0.77 (0.67-1.17) mg/dL Est GFR ( Amer) 120.5 (>60) Est GFR (Non-Af Amer) 99.6 (>60) BUN/Creatinine Ratio 27.3 H (8-20) Glucose 123 H (70-100) mg/dL Lactic Acid (0.5-2.0) mmol/L Calcium 9.4 (8.6-10.3) mg/dL Total Bilirubin 0.60 (0.2-1.0) mg/dL AST 22 (13-39) U/L ALT 14 (7-52) U/L Alkaline Phosphatase 73 (34-104) U/L Troponin I 0.02 (<0.04) ng/mL C-Reactive Protein 103.06 H (<8.01) mg/L Total Protein 6.9 (6.4-8.9) g/dL Albumin 3.8 (3.2-5.2) g/dL Globulin 3.1 (2-4) g/dL Albumin/Globulin Ratio 1.2 (1-3) 05/01/19 Range/Units 09:59 WBC (3.5-10.8) 10^3/uL RBC (4.18-5.48) 10^6 /uL Hgb (14.0-18.0) g/dL Hct (42-52) % MCV (80-94) fL MCH (27-31) pg MCHC (31-36) g/dL RDW (10-15) % Plt Count (150-450) 10^3/uL MPV (7.4-10.4) fL Neut % (Auto) % Lymph % (Auto) % Kings % (Auto) % Eos % (Auto) % Baso % (Auto) % Absolute Neuts (auto) (1.5-7.7) 10^3/ul Absolute Lymphs (auto) (1.0-4.8) 10^3/ul Absolute Monos (auto) (0-0.8) 10^3/ul Absolute Eos (auto) (0-0.6) 10^3/ul Absolute Basos (auto) (0-0.2) 10^3/ul Absolute Nucleated RBC 10^3/ul Nucleated RBC % ESR INR (Anticoag Therapy) (0.82-1.09) APTT (26.0-38.0) seconds Sodium (135-145) mmol/L Potassium (3.5-5.0) mmol/L Chloride (101-111) mmol/L Carbon Dioxide (22-32) mmol/L Anion Gap (2-11) mmol/L BUN (6-24) mg/dL Creatinine (0.67-1.17) mg/dL Est GFR ( Amer) (>60) Est GFR (Non-Af Amer) (>60) BUN/Creatinine Ratio (8-20) Glucose (70-100) mg/dL Lactic Acid 5.0 H* (0.5-2.0) mmol/L Calcium (8.6-10.3) mg/dL Total Bilirubin (0.2-1.0) mg/dL AST (13-39) U/L ALT (7-52) U/L Alkaline Phosphatase (34-104) U/L Troponin I (<0.04) ng/mL C-Reactive Protein (<8.01) mg/L Total Protein (6.4-8.9) g/dL Albumin (3.2-5.2) g/dL Globulin (2-4) g/dL Albumin/Globulin Ratio (1-3) Result Diagrams: 05/01/19 09:59 05/01/19 09:59 Lab Statement: Any lab studies that have been ordered have been reviewed, and results considered in the medical decision making process. Course/Dx - Course Course Of Treatment: Patient is a 73-year-old male with a PMHx of dementia, alzheimers and CVD with 2 endarterectomies presenting to the ED from [facility] with weakness per (primary caregiver.) Patient is non-verbal. states she attempted to get him from the toilet this morning and was unable to lift him as he usually helps with standing. He has had 2 days of diarrhea and worsening weakness. gives full hx. Cough without production (usually at baseline, but worse), appearing more pale and diarrhea. Denies malodorous diarrhea or color changes. Denies obvious UA sxs such as gross hematuria or obstruction. No hx of UTIs. Patient does not c/o so it is difficult to assess if pt is sick (per ). On arrival to the ED, VS show temp of 102, tachy at 121, respirations 24 and 91% sat at 4L. He does not wear O2 at home. Sepsis protocol initiated. Patient was given 1500 mL normal saline, Rocephin and Zithromax and Tylenol 650 mg. 4L O2 applied via NC. Sat remains 92-94%. Patient was given liquid Tylenol d/t difficulty with swallowing pills. On physical examination, patient appears pale and diaphoretic. Patient is nonverbal. Lungs sound rhonchorous without wheezing bilaterally. No wincing with deep palpation of the abdomen, upper or lower extremities. Rapid rate of 120 with regular rhythm. No carotid bruits bilaterally. No neck tenderness or stiffness. Patient is moving all extremities well. No increased work of breathing. Labs obtained including blood cultures which are pending. White count 12,000. Chest x-ray shows right basilar pneumonia with probable additional mild inflammatory infiltrate at the left lung base. Stigmata of COPD and emphysema. Patient is not ICU/pseudomonas risk driven protocol for PNA and thus was given rocephin and azithromax. Medications include aspirin, Cozaar and Crestor. Since symptoms have been present x 2 days and this was not acute onset, I do not suspect PE. Patient tolerating food and liquid well at home and I do not suspect aspiration. Unable to straight cath, shaw catheter placed and UA sent. Discussed with Dr. Brown, hospitalist at 11am who accepts patient for admission. CC time 30 min. - Differential Dx/Clinical Impression Differential Diagnosis/HQI/PQRI: CVA, Metabolic Disorder, Sepsis Provider Diagnosis: PNA (pneumonia), Sepsis - Provider Notifications Discussed Care Of Patient With: Sue Brown - agrees to accept for admission Time Discussed With Above Provider: 11:00 Instructed by Provider To: Admit As Inpatient - Critical Care Time Critical Care Time: 30-74 min Discharge - Sign-Out/Discharge Documenting (check all that apply): Patient Departure Patient Received Moderate/Deep Sedation with Procedure: No - Discharge Plan Condition: Fair Disposition: ADMITTED TO [facility] Referrals: Govind Vann MD [Primary Care Provider] - - Billing Disposition and Condition Condition: FAIR Disposition: Admitted to [facility]
[2019-05-01 11:23] LABS: Erythrocyte Sed Rate 56 mm/Hr (0-19)
[2019-05-01] MEDS ORDERED: Zosyn per Pharmacy* NOTE FOLLOW UP SCH (13:00)
[2019-05-01] MEDS: NS 0.9% 1000 ML** 1,000 ML IV SCH (13:33)
--- NOTE | 2019-05-01 13:52 | HP ---
CC: Dr. Vann; Dr. Blair * HISTORY AND PHYSICAL: DATE OF ADMISSION: 05/01/19 PRIMARY CARE PROVIDER: Dr. Vann. ATTENDING PHYSICIAN WHILE IN THE HOSPITAL: Dr. Sue Brown * (dictated by Juana Mason NP). CHIEF COMPLAINT: 1. Cough. 2. Fever. HISTORY OF PRESENT ILLNESS: Mr. García is a 73-year-old male with a past medical history significant for hypertension, hyperlipidemia, Alzheimer's dementia, who initially presented to urgent care for evaluation of weakness, and was sent to the emergency room for further evaluation. The patient is verbal. He does respond slowly to questions. who is the primary java enterprise architect provided the patient's medical history. The reports that this morning she was attempting to get him off the toilet and was unable to lift him as he was too weak to stand and help her. The patient can normally stand and help her, but this morning was too weak. The patient's reports that he had an episode of diarrhea yesterday and then she had given him Pepto-Bismol and he has not had any further episodes of diarrhea. She also reports that he has had an increased cough and generalized weakness. The patient when asked if he has any chest pain, responds no. He responds no to cough, hemoptysis, or shortness of breath. He responds no to abdominal pain, diarrhea, nausea, or vomiting. The patient's denies any reports of hematuria or urinary frequency. She does report generalized weakness. Denies any visual complaints. She does report that the patient does choke at times when drinking liquids. Denies any psychosis or anxiety. While in the emergency room, the patient had routine lab work drawn and vital signs. He was found to have a fever of 102. He was given Tylenol in the emergency room. Lab work showed leukocytosis with a white count of 12.6 and suspected source of pneumonia. The patient did have a lactic acid of 5, which he did meet criteria of severe sepsis. He did receive the 30 mL/kg bolus in the emergency room as well and he received azithromycin and ceftriaxone. Due to his meeting severe sepsis with underlying pneumonia, we were asked to see and evaluate him for admission. PAST MEDICAL HISTORY: Significant for: 1. Dementia. 2. Alzheimer's. 3. Hypertension. 4. Hyperlipidemia. PAST SURGICAL HISTORY: 1. Carotid endarterectomy. 2. Lumbar disk surgery. 3. Hernia repair. 4. Stent in his leg. HOME MEDICATIONS: 1. Namenda 10 mg p.o. b.i.d. 2. Aricept 10 mg p.o. at bedtime. 3. Crestor 5 mg p.o. daily. 4. Cozaar 50 mg p.o. daily. 5. Calcium with vitamin D 2 tabs p.o. daily. 6. Aspirin 325 mg p.o. daily. 7. Fosamax 70 mg p.o. weekly. ALLERGIES: To shellfish. FAMILY HISTORY: Father's history is unknown. Mother had emphysema. Brother with Alzheimer's dementia, who has . Daughter with non-Hodgkin's lymphoma and second daughter with skin cancer. SOCIAL HISTORY: The patient quit smoking approximately 10 years ago. Prior to that, he smoked 2 packs a day for approximately 50 years. He quit drinking alcohol in 2007. Denies any illicit drug use. He is . Surrogate decision maker in the event he is unable to make his own decisions is his . He is a full code. REVIEW OF SYSTEMS: A 14-point review of systems was completed. All pertinent positives were mentioned in the HPI. Otherwise were negative. PHYSICAL EXAMINATION GENERAL: Mr. García is a 73-year-old male. He is alert to name and oriented to place. He is confused to time. He is able to answer simple questions. Unclear the amount of understanding in regards to the questions. He responds with one word sentences. VITAL SIGNS: Blood pressure 147/73, heart rate 113, respirations were 28, O2 saturation 97%, temp was repeated in the room during evaluation and 101.7. HEENT: Head is atraumatic, normocephalic. Eyes: EOMs are intact. Sclerae anicteric and not pale. Oral mucosa appeared to be dry. NECK: Supple. LUNGS: Diminished throughout bilaterally. He does have a moist harsh cough. CARDIAC: S1, S2. Regular rate and rhythm. No murmurs, rubs, or gallops. He is tachycardic. ABDOMEN: Flat, soft, nontender. No grimacing. The patient denies abdominal tenderness when asked. Bowel sounds are active x4. EXTREMITIES: Pedal pulses are +2 bilaterally. There is no clubbing or cyanosis. There is no edema noted. NEUROLOGIC: He does stare in a fixed position when responding to questions. He is alert and oriented to person and place. He is confused to time. He is able to follow some commands. SKIN: Intact. DIAGNOSTIC STUDIES/LAB DATA: WBCs are 12.6, RBCs 3.73, hemoglobin 12.0, hematocrit is 37, platelet count is 282,000. INR is 1.23. Sodium 138, potassium 3.9, chloride 104, carbon dioxide was 23, anion gap was 11, BUN 21, creatinine 0.77, glucose was 123, lactic acid was 5. C-reactive protein was 103. ASTs were 22, ALTs were 14, alkaline phosphatase 73. Urine; pH was 5.0, specific gravity 1.026, urine protein was 2+, ketones were negative, blood was 2 +; nitrites, bilirubin, urobilinogen, leukocyte esterase were negative; urine wbc's were 1+, urine rbc's were 3+, squamous epithelial cells were present, bacteria was absent, glucose was negative, ascorbic acid was positive. Chest x-ray, radiologist's impression: 1. Right basilar pneumonia with probable additional mild inflammatory infiltrate at the left lung base. 2. Stigmata for obstructive pulmonary disease and emphysema. He had an electrocardiogram, which showed sinus tachycardia at a rate of 123. He does have some minimal ST depressions in V4. ASSESSMENT AND PLAN: Mr. García is a 73-year-old male with a past medical history significant for Alzheimer's dementia, hypertension, hyperlipidemia, who presented to the emergency room with complaints of cough and found to have bilateral lower lobe pneumonia, meeting severe sepsis criteria. He will be admitted inpatient for: 1. Severe sepsis. The patient meets severe sepsis criteria with elevated white count, tachycardia, tachypnea, and a lactic acid of 5.0 with a suspected source of bilateral lower lobe pneumonia. I will get a urine for Legionella and Strep pneumoniae. He has blood cultures that are currently pending. He did receive 30 cc/kg bolus in the emergency room as well as azithromycin and ceftriaxone. I will place him on Zosyn as the reports that the patient has episodes of choking when drinking fluids, as there is a concern for aspiration pneumonia. The patient will continue on albuterol nebulizers as needed for shortness of breath. 2. Lactic acidosis. I suspect his lactic acid is elevated due to severe sepsis from pneumonia. The patient did receive a 30 mL/kg bolus in the emergency room. We will continue to repeat his lactic acid until it is below 2. We will continue with IV hydration normal saline at 100 cc per hour. 3. Malnutrition. The patient does have malnutrition. He has got temporal wasting. His BMI is 15.9. I will order a nutritional consult. 4. Hypertension. The patient does take losartan at home for hypertension. I am going to hold his losartan at this time due to his underlying sepsis. 5. Alzheimer's dementia. He can continue his Aricept and Namenda as previously prescribed. 6. DVT prophylaxis: I will put him on heparin subcu q.12 hours. 7. Code status: He is a full code. 8. Fluids, electrolytes, and nutrition: I will place him on a regular diet. TIME SPENT: Time spent on this admission was approximately 60 minutes, greater than half that time was spent at the bedside reviewing events leading thus far to his hospitalization, performing physical exam, and reviewing my plan of care. I have discussed this with my attending, Dr. Sue Brown; she is in agreement with my plan. JUANA MASON, MANAGER MATERIALS MANAGEMENT [id number]/[facility] #: [id number] RHINA
[2019-05-01] MEDS: ZOSYN 3.375 GM Q8H per EXTENDED INFUSION IVPB SCH ×2 (16:51)
[2019-05-01] MEDS: Memantine TAB* 10 MG PO SCH (21:50)
[2019-05-01] MEDS: Heparin VIAL(*) 5000 UNITS/ML VIAL (FIVE THOUSAND) SUBCUT SCH (21:50)
[2019-05-01] MEDS: Donepezil TAB* 5 MG PO SCH (21:50)
--- NOTE | 2019-05-01 22:50 | PN ---
Sepsis Event Evaluation Date of Evaluation: 05/01/19 Time of Evaluation: 12:30 Current Stage of Sepsis: Severe Sepsis Vital Signs - Last 12 Hours: Vital Signs - 12 hr Temp Pulse Resp BP Pulse Ox 05/01/19 16:40 98.7 F 99 16 165/64 100 05/01/19 13:15 99.7 F 103 26 161/73 99 05/01/19 12:32 100.5 F 104 24 143/68 100 05/01/19 12:23 103 27 161/73 99 05/01/19 12:13 112 26 144/79 96 05/01/19 12:03 106 25 150/75 90 05/01/19 12:00 107 26 93 05/01/19 11:53 108 26 158/74 98 05/01/19 11:43 115 28 147/73 97 05/01/19 11:33 115 25 140/75 96 05/01/19 11:23 115 27 149/82 97 05/01/19 11:13 112 27 165/82 98 05/01/19 11:03 112 26 155/83 96 05/01/19 11:00 112 25 97 05/01/19 10:53 114 20 168/79 97 Lactic Acid: 05/01/19 05/01/19 09:59 13:53 Lactic Acid 5.0 H* 1.3 - Cardiopulmonary Exam Capillary Refill: < or = to 5 seconds Respiratory: Symmetrical Chest Expansion and Respiratory Effort, - - diminished Cardiovascular: NL Sounds; No Murmurs; No JVD, No Edema - Peripheral Pulse Exam Radial Pulses: Bilateral Normal Pedal Pulses: Bilateral Normal - Skin Exam Skin Exam: Normal Turgor - Jamarcus Coma Scale Best Eye Response: 4 - Spontaneous Best Motor Response: 6 - Obeys Commands Best Verbal Response: 4 - Confused Coma Scale Total: 14 Assess/Plan/Problems-Billing Assessment: - Patient Problems (1) Severe sepsis Current Visit: Yes Status: Acute Code(s): A41.9 - SEPSIS, UNSPECIFIED ORGANISM; R65.20 - SEVERE SEPSIS WITHOUT SEPTIC SHOCK SNOMED Code(s): 23313477 Comment: - met severe sepsis in the ER - will continue ivf , zosyn for suspected aspiration pneumonia - patient remains febrile and tachycardic at this time - will repeat lactic acid in 4 hours and trend until below 2
[2019-05-02] MEDS: NS 0.9% 1000 ML** 1,000 ML IV SCH (00:59)
[2019-05-02] MEDS: ZOSYN 3.375 GM Q8H per EXTENDED INFUSION IVPB SCH ×6 (01:00→16:28)
[2019-05-02 07:53] LABS: ABS Lymphocytes 0.9 10^3/ul (1.0-4.8); ABS Monocytes 0.6 10^3/ul (0-0.8); ABS Neutrophils 10.2 10^3/ul (1.5-7.7); Hematocrit 28 % (42-52); Hemoglobin 9.6 g/dL (14.0-18.0); Mean Corpuscular HGB Conc 35 g/dL (31-36); Mean Corpuscular Hemoglobin 33 pg (27-31); Mean Corpuscular Volume 97 fL (80-94); Mean Platelet Volume 8.5 fL (7.4-10.4); Nucleated Red Blood Cells % 0.1; Platelet Count 216 10^3/uL (150-450); Red Blood Count 2.89 10^6 /uL (4.18-5.48); Red Cell Distribution Width 14 % (10-15); White Blood Count 11.7 10^3/uL (3.5-10.8)
[2019-05-02 08:07] LABS: BUN/Creatinine Ratio 27.7 (8-20); Calcium 8.2 mg/dL (8.6-10.3); EGFR Non-African American 176.1 (>60); Potassium 3.2 mmol/L (3.5-5.0)
[2019-05-02] MEDS: KCL 20 MEQ/100 ML IVPREMIX* 20 MEQ/100 ML BAG IV SCH ×3 (09:33→16:27)
[2019-05-02] MEDS: Memantine TAB* 10 MG PO SCH ×2 (09:35→22:01)
[2019-05-02] MEDS: Aspirin TAB* 325 MG PO SCH (09:35)
[2019-05-02] MEDS: Heparin VIAL(*) 5000 UNITS/ML VIAL (FIVE THOUSAND) SUBCUT SCH ×2 (09:35→22:04)
--- NOTE | 2019-05-02 15:43 | PN ---
Subjective Date of Service: 05/02/19 Interval History: Patient has dementia and converses minimally, but does answer questions appropriately. Reports his breathing is comfortable. Denies chest pain, difficulty breathing, fever/chills, abd pain. Objective Active Medications: Aspirin (Aspirin Tab*) 325 mg PO DAILY [facility] Last Admin: 05/02/19 09:35 Dose: 325 mg Donepezil HCl (Aricept Tab*) 10 mg PO BEDTIME [facility] Last Admin: 05/01/19 21:50 Dose: 10 mg Heparin Sodium (Porcine) (Heparin Vial(*)) 5,000 units SUBCUT Q12HR [facility] Last Admin: 05/02/19 09:35 Dose: 5,000 units Piperacillin Sod/Tazobactam (Sod 3.375 gm/ Sodium Chloride) 100 mls @ 25 mls/ hr IVPB Q8H [facility] Last Admin: 05/02/19 09:31 Dose: 25 mls/hr Memantine (Namenda Tab*) 10 mg PO BID [facility] Last Admin: 05/02/19 09:35 Dose: 10 mg Pharmacy Consult (Zosyn Per Pharmacy*) 1 note FOLLOW UP .ZOSYN PER PHARMACY [facility] Vital Signs - 8 hr 05/02/19 05/02/19 05/02/19 07:53 08:00 12:09 Temperature 97.8 F 98.6 F Pulse Rate 89 82 Respiratory 20 16 20 Rate Blood Pressure 131/60 116/53 (mmHg) O2 Sat by Pulse 98 99 99 Oximetry Oxygen Devices in Use Now: None Appearance: Thin, elderly white male laying in hospital bed appearing in NAD; restricted affect Eyes: No Scleral Icterus, PERRLA Ears/Nose/Mouth/Throat: Mucous Membranes Moist Neck: NL Appearance and Movements; NL JVP Respiratory: Symmetrical Chest Expansion and Respiratory Effort, - - Reduced lung sounds at bilateral lung bases but otherwise no crackles, rhonchi, or wheezes Cardiovascular: NL Sounds; No Murmurs; No JVD, RRR Abdominal: - - abdomen soft, nontender, nondistended Extremities: No Edema, No Clubbing, Cyanosis Skin: No Rash or Ulcers Neurological: - - Patient is alert and oriented only to self; no focal deficit Result Diagrams: 05/02/19 06:24 05/02/19 06:24 Additional Lab and Data: Lab Results 05/01/19 05/01/19 05/01/19 Range/Units 09:59 09:59 09:59 WBC 12.6 H (3.5-10.8) 10^3/uL RBC 3.73 L (4.18-5.48) 10^6 /uL Hgb 12.0 L (14.0-18.0) g/dL Hct 37 L (42-52) % MCV 99 H (80-94) fL MCH 32 H (27-31) pg MCHC 33 (31-36) g/dL RDW 14 (10-15) % Plt Count 282 (150-450) 10^3/uL MPV 7.7 (7.4-10.4) fL Neut % (Auto) 90.4 % Lymph % (Auto) 1.8 % Glasscock % (Auto) 7.8 % Eos % (Auto) 0.0 % Baso % (Auto) 0.0 % Absolute Neuts (auto) 11.4 H (1.5-7.7) 10^3/ul Absolute Lymphs (auto) 0.2 L (1.0-4.8) 10^3/ul Absolute Monos (auto) 1.0 H (0-0.8) 10^3/ul Absolute Eos (auto) 0.0 (0-0.6) 10^3/ul Absolute Basos (auto) 0.0 (0-0.2) 10^3/ul Absolute Nucleated RBC 0.0 10^3/ul Nucleated RBC % 0.0 ESR Pending INR (Anticoag Therapy) 1.23 H (0.82-1.09) APTT 32.4 (26.0-38.0) seconds Sodium 138 (135-145) mmol/L Potassium 3.9 (3.5-5.0) mmol/L Chloride 104 (101-111) mmol/L Carbon Dioxide 23 (22-32) mmol/L Anion Gap 11 (2-11) mmol/L BUN 21 (6-24) mg/dL Creatinine 0.77 (0.67-1.17) mg/dL Est GFR ( Amer) 120.5 (>60) Est GFR (Non-Af Amer) 99.6 (>60) BUN/Creatinine Ratio 27.3 H (8-20) Glucose 123 H (70-100) mg/dL Lactic Acid (0.5-2.0) mmol/L Calcium 9.4 (8.6-10.3) mg/dL Total Bilirubin 0.60 (0.2-1.0) mg/dL AST 22 (13-39) U/L ALT 14 (7-52) U/L Alkaline Phosphatase 73 (34-104) U/L Troponin I 0.02 (<0.04) ng/mL C-Reactive Protein 103.06 H (<8.01) mg/L Total Protein 6.9 (6.4-8.9) g/dL Albumin 3.8 (3.2-5.2) g/dL Globulin 3.1 (2-4) g/dL Albumin/Globulin Ratio 1.2 (1-3) 05/01/19 Range/Units 09:59 WBC (3.5-10.8) 10^3/uL RBC (4.18-5.48) 10^6 /uL Hgb (14.0-18.0) g/dL Hct (42-52) % MCV (80-94) fL MCH (27-31) pg MCHC (31-36) g/dL RDW (10-15) % Plt Count (150-450) 10^3/uL MPV (7.4-10.4) fL Neut % (Auto) % Lymph % (Auto) % Glasscock % (Auto) % Eos % (Auto) % Baso % (Auto) % Absolute Neuts (auto) (1.5-7.7) 10^3/ul Absolute Lymphs (auto) (1.0-4.8) 10^3/ul Absolute Monos (auto) (0-0.8) 10^3/ul Absolute Eos (auto) (0-0.6) 10^3/ul Absolute Basos (auto) (0-0.2) 10^3/ul Absolute Nucleated RBC 10^3/ul Nucleated RBC % ESR INR (Anticoag Therapy) (0.82-1.09) APTT (26.0-38.0) seconds Sodium (135-145) mmol/L Potassium (3.5-5.0) mmol/L Chloride (101-111) mmol/L Carbon Dioxide (22-32) mmol/L Anion Gap (2-11) mmol/L BUN (6-24) mg/dL Creatinine (0.67-1.17) mg/dL Est GFR ( Amer) (>60) Est GFR (Non-Af Amer) (>60) BUN/Creatinine Ratio (8-20) Glucose (70-100) mg/dL Lactic Acid 5.0 H* (0.5-2.0) mmol/L Calcium (8.6-10.3) mg/dL Total Bilirubin (0.2-1.0) mg/dL AST (13-39) U/L ALT (7-52) U/L Alkaline Phosphatase (34-104) U/L Troponin I (<0.04) ng/mL C-Reactive Protein (<8.01) mg/L Total Protein (6.4-8.9) g/dL Albumin (3.2-5.2) g/dL Globulin (2-4) g/dL Albumin/Globulin Ratio (1-3) Microbiology and Other Data: Microbiology 05/01/19 10:52 Urine Culture - Final Urine No Growth (<1,000 CFU/mL) Legionella Urinary Antigen - Final Negative Legionella Antigen Streptococcus pneumoniae Ag Screen - Final Negative Legionella Antigen 05/01/19 09:59 Aerobic Blood Culture - Preliminary Blood Venous No Growth Day 1 Anaerobic Blood Culture - Preliminary No Growth Day 1 05/01/19 09:59 Aerobic Blood Culture - Preliminary Blood Venous No Growth Day 1 Anaerobic Blood Culture - Preliminary No Growth Day 1 Assess/Plan/Problems-Billing Assessment: 73 yo male with PMHx dementia, HTN, and HLD presents with family reporting c/o cough and fever. Found to have severe sepsis 2/2 pneumonia. - Patient Problems (1) Severe sepsis Code(s): A41.9 - SEPSIS, UNSPECIFIED ORGANISM; R65.20 - SEVERE SEPSIS WITHOUT SEPTIC SHOCK SNOMED Code(s): 18810697 Comment: -secondary to pneumonia, see more below -severe sepsis upon admission due to lactic acid, fever, tachycardia, and tachypnea. -lactic acid has since normalized, patient is afebrile, tachycardia and tachypnea are resolved -severe sepsis is resolved -no further IVF needed at this time -blood culture no growth to date (2) Pneumonia Code(s): J18.9 - PNEUMONIA, UNSPECIFIED ORGANISM SNOMED Code(s): 715807364 Comment: -CXR demonstrates pneumonia of right lung base and possible infiltrate of left lung base as well -likely a component of aspiration as patient coughs with drinking liquids -PLANT NURSERY WORKER has evaluated patient and will give thin thick liquids and mechanical ground diet during this acute illness and reassess tomorrow -continue zosyn -leukocytosis continues today but otherwise fever resolved and severe sepsis resolved -previously requiring 2L oxygen but saturating well on RA at this time -diminshed lung sounds at bases which appears consistent with exam at admission (3) Hypokalemia Code(s): E87.6 - HYPOKALEMIA SNOMED Code(s): 57201510 Comment: -K 3.2 this morning -replaced with IV potassium chloride -repeat BMP is pending -possibly related to poor oral intake related to dementia (4) Dementia Code(s): F03.90 - UNSPECIFIED DEMENTIA WITHOUT BEHAVIORAL DISTURBANCE SNOMED Code(s): 85342656 Comment: -patient reportedly ambulates alone at home; does not appear to have the strength at this time -PT evaluation appreciated -continue home memantine and donepezil (5) Hypertension Code(s): I10 - ESSENTIAL (PRIMARY) HYPERTENSION SNOMED Code(s): 70578461 Comment: -home losartan previously held in setting of severe sepsis -patient has been hypertensive with SBP to 160s at times -restarting home losartan, will monitor for hypotension (6) Hyperlipidemia Code(s): E78.5 - HYPERLIPIDEMIA, UNSPECIFIED SNOMED Code(s): 18384794 Comment: -takes crestor at home, will give lipitor in hospital (7) Low BMI Code(s): ZPA9933 - SNOMED Code(s): 2838310 Comment: -appears patient has gradually lost approx 15 lbs in last 2 years -likely related to poor po intake with dementia -albumin is wnl, will check prealbumin tomorrow but at this point does not demonstrate a true protein calorie malnourishment -nutrition evaluation completed and no recommendations beyond regular diet at this point (8) DVT prophylaxis Code(s): Z29.9 - ENCOUNTER FOR PROPHYLACTIC MEASURES, UNSPECIFIED SNOMED Code( s): 147427499 Comment: -subQ heparin TID (9) Full code status Code(s): Z78.9 - OTHER SPECIFIED HEALTH STATUS SNOMED Code(s): 962420378 Status and Disposition: remain in the hospital for further medical treatment, PT eval pending
[2019-05-02] MEDS: Losartan TAB* 25 MG PO SCH (16:27)
[2019-05-02 18:51] LABS: BUN/Creatinine Ratio 21.2 (8-20); Calcium 8.3 mg/dL (8.6-10.3); EGFR African American 189.6 (>60); EGFR Non-African American 156.7 (>60); Potassium 3.9 mmol/L (3.5-5.0)
[2019-05-02] MEDS: Donepezil TAB* 5 MG PO SCH (22:02)
[2019-05-03] MEDS: ZOSYN 3.375 GM Q8H per EXTENDED INFUSION IVPB SCH ×6 (00:27→17:35)
[2019-05-03 08:05] LABS: ABS Eosinophils 0.1 10^3/ul (0-0.6); ABS Lymphocytes 1.3 10^3/ul (1.0-4.8); ABS Monocytes 0.7 10^3/ul (0-0.8); Eosinophil % 0.4 %; Hematocrit 29 % (42-52); Hemoglobin 9.9 g/dL (14.0-18.0); Lymphocyte % 9.4 %; Mean Corpuscular HGB Conc 34 g/dL (31-36); Mean Corpuscular Hemoglobin 33 pg (27-31); Mean Corpuscular Volume 97 fL (80-94); Mean Platelet Volume 8.4 fL (7.4-10.4); Platelet Count 235 10^3/uL (150-450); Red Blood Count 2.96 10^6 /uL (4.18-5.48); Red Cell Distribution Width 14 % (10-15)
[2019-05-03 08:25] LABS: Calcium 8.4 mg/dL (8.6-10.3); EGFR African American 185.4 (>60); EGFR Non-African American 153.3 (>60); Potassium 3.8 mmol/L (3.5-5.0)
[2019-05-03] MEDS: Aspirin TAB* 325 MG PO SCH (10:02)
[2019-05-03] MEDS: Atorvastatin* 10 MG TAB PO SCH (10:02)
[2019-05-03] MEDS: Memantine TAB* 10 MG PO SCH ×2 (10:02→21:42)
[2019-05-03] MEDS: Losartan TAB* 25 MG PO SCH (10:02)
[2019-05-03] MEDS: Heparin VIAL(*) 5000 UNITS/ML VIAL (FIVE THOUSAND) SUBCUT SCH ×2 (10:02→21:45)
--- NOTE | 2019-05-03 18:34 | PN ---
Subjective Date of Service: 05/03/19 Interval History: Patient answers questions appropriately. States his breathing is comfortable. Denies difficulty breathing, fever/chills, chest pain, abd pain. Discussed with who is the patient's medical decision-maker and she would like to pursue EMI rehab and possibly group home placement in a SNF pending further conversation with daughters. Objective Active Medications: Aspirin (Aspirin Tab*) 325 mg PO DAILY [facility] Last Admin: 05/03/19 10:02 Dose: 325 mg Atorvastatin Calcium (Lipitor*) 10 mg PO DAILY [facility]; Protocol Last Admin: 05/03/19 10:02 Dose: 10 mg Donepezil HCl (Aricept Tab*) 10 mg PO BEDTIME [facility] Last Admin: 05/02/19 22:02 Dose: 10 mg Heparin Sodium (Porcine) (Heparin Vial(*)) 5,000 units SUBCUT Q12HR [facility] Last Admin: 05/03/19 10:02 Dose: 5,000 units Piperacillin Sod/Tazobactam (Sod 3.375 gm/ Sodium Chloride) 100 mls @ 25 mls/ hr IVPB Q8H [facility] Last Admin: 05/03/19 17:35 Dose: 25 mls/hr Losartan Potassium (Cozaar Tab*) 50 mg PO DAILY [facility] Last Admin: 05/03/19 10:02 Dose: 50 mg Memantine (Namenda Tab*) 10 mg PO BID [facility] Last Admin: 05/03/19 10:02 Dose: 10 mg Pharmacy Consult (Zosyn Per Pharmacy*) 1 note FOLLOW UP .ZOSYN PER PHARMACY [facility] Vital Signs - 8 hr 05/03/19 11:47 Temperature 98.5 F Pulse Rate 86 Respiratory 22 Rate Blood Pressure 100/59 (mmHg) O2 Sat by Pulse 97 Oximetry Oxygen Devices in Use Now: None Appearance: Thin, elderly white male laying in hospital bed appearing in NAD; restricted affect, does not regard faces Eyes: No Scleral Icterus, PERRLA Ears/Nose/Mouth/Throat: Mucous Membranes Moist Neck: NL Appearance and Movements; NL JVP Respiratory: Symmetrical Chest Expansion and Respiratory Effort, - - Minimally diminished lung sounds at bases but otherwise clear to auscultation Cardiovascular: NL Sounds; No Murmurs; No JVD, RRR Abdominal: - - abdomen soft, nontender, nondistended Extremities: No Edema, No Clubbing, Cyanosis Skin: No Rash or Ulcers Neurological: NL Muscle Strength and Tone, - - Patient oriented to self but not time and place Result Diagrams: 05/03/19 07:11 05/03/19 07:11 Additional Lab and Data: Lab Results 05/01/19 05/01/19 05/01/19 Range/Units 09:59 09:59 09:59 WBC 12.6 H (3.5-10.8) 10^3/uL RBC 3.73 L (4.18-5.48) 10^6 /uL Hgb 12.0 L (14.0-18.0) g/dL Hct 37 L (42-52) % MCV 99 H (80-94) fL MCH 32 H (27-31) pg MCHC 33 (31-36) g/dL RDW 14 (10-15) % Plt Count 282 (150-450) 10^3/uL MPV 7.7 (7.4-10.4) fL Neut % (Auto) 90.4 % Lymph % (Auto) 1.8 % [place] % (Auto) 7.8 % Eos % (Auto) 0.0 % Baso % (Auto) 0.0 % Absolute Neuts (auto) 11.4 H (1.5-7.7) 10^3/ul Absolute Lymphs (auto) 0.2 L (1.0-4.8) 10^3/ul Absolute Monos (auto) 1.0 H (0-0.8) 10^3/ul Absolute Eos (auto) 0.0 (0-0.6) 10^3/ul Absolute Basos (auto) 0.0 (0-0.2) 10^3/ul Absolute Nucleated RBC 0.0 10^3/ul Nucleated RBC % 0.0 ESR Pending INR (Anticoag Therapy) 1.23 H (0.82-1.09) APTT 32.4 (26.0-38.0) seconds Sodium 138 (135-145) mmol/L Potassium 3.9 (3.5-5.0) mmol/L Chloride 104 (101-111) mmol/L Carbon Dioxide 23 (22-32) mmol/L Anion Gap 11 (2-11) mmol/L BUN 21 (6-24) mg/dL Creatinine 0.77 (0.67-1.17) mg/dL Est GFR ( Amer) 120.5 (>60) Est GFR (Non-Af Amer) 99.6 (>60) BUN/Creatinine Ratio 27.3 H (8-20) Glucose 123 H (70-100) mg/dL Lactic Acid (0.5-2.0) mmol/L Calcium 9.4 (8.6-10.3) mg/dL Total Bilirubin 0.60 (0.2-1.0) mg/dL AST 22 (13-39) U/L ALT 14 (7-52) U/L Alkaline Phosphatase 73 (34-104) U/L Troponin I 0.02 (<0.04) ng/mL C-Reactive Protein 103.06 H (<8.01) mg/L Total Protein 6.9 (6.4-8.9) g/dL Albumin 3.8 (3.2-5.2) g/dL Globulin 3.1 (2-4) g/dL Albumin/Globulin Ratio 1.2 (1-3) 05/01/19 Range/Units 09:59 WBC (3.5-10.8) 10^3/uL RBC (4.18-5.48) 10^6 /uL Hgb (14.0-18.0) g/dL Hct (42-52) % MCV (80-94) fL MCH (27-31) pg MCHC (31-36) g/dL RDW (10-15) % Plt Count (150-450) 10^3/uL MPV (7.4-10.4) fL Neut % (Auto) % Lymph % (Auto) % [place] % (Auto) % Eos % (Auto) % Baso % (Auto) % Absolute Neuts (auto) (1.5-7.7) 10^3/ul Absolute Lymphs (auto) (1.0-4.8) 10^3/ul Absolute Monos (auto) (0-0.8) 10^3/ul Absolute Eos (auto) (0-0.6) 10^3/ul Absolute Basos (auto) (0-0.2) 10^3/ul Absolute Nucleated RBC 10^3/ul Nucleated RBC % ESR INR (Anticoag Therapy) (0.82-1.09) APTT (26.0-38.0) seconds Sodium (135-145) mmol/L Potassium (3.5-5.0) mmol/L Chloride (101-111) mmol/L Carbon Dioxide (22-32) mmol/L Anion Gap (2-11) mmol/L BUN (6-24) mg/dL Creatinine (0.67-1.17) mg/dL Est GFR ( Amer) (>60) Est GFR (Non-Af Amer) (>60) BUN/Creatinine Ratio (8-20) Glucose (70-100) mg/dL Lactic Acid 5.0 H* (0.5-2.0) mmol/L Calcium (8.6-10.3) mg/dL Total Bilirubin (0.2-1.0) mg/dL AST (13-39) U/L ALT (7-52) U/L Alkaline Phosphatase (34-104) U/L Troponin I (<0.04) ng/mL C-Reactive Protein (<8.01) mg/L Total Protein (6.4-8.9) g/dL Albumin (3.2-5.2) g/dL Globulin (2-4) g/dL Albumin/Globulin Ratio (1-3) Microbiology and Other Data: Microbiology 05/01/19 10:52 Urine Culture - Final Urine No Growth (<1,000 CFU/mL) Legionella Urinary Antigen - Final Negative Legionella Antigen Streptococcus pneumoniae Ag Screen - Final Negative Legionella Antigen 05/01/19 09:59 Aerobic Blood Culture - Preliminary Blood Venous No Growth Day 1 Anaerobic Blood Culture - Preliminary No Growth Day 1 05/01/19 09:59 Aerobic Blood Culture - Preliminary Blood Venous No Growth Day 1 Anaerobic Blood Culture - Preliminary No Growth Day 1 Assess/Plan/Problems-Billing Assessment: 73 yo male with PMHx dementia, HTN, and HLD presents with family reporting c/o cough and fever. Found to have severe sepsis 2/2 pneumonia. - Patient Problems (1) Pneumonia Code(s): J18.9 - PNEUMONIA, UNSPECIFIED ORGANISM SNOMED Code(s): 098148247 Comment: -CXR demonstrates pneumonia of right lung base and possible infiltrate of left lung base as well -with severe sepsis on admission which is now resolved -likely a component of aspiration as patient coughs with drinking liquids -INDUSTRIAL CONTROLS TECHNICIAN has evaluated patient and will give thin thick liquids and mechanical ground diet during this acute illness and reassess later -continue zosyn -leukocytosis continues today but otherwise afebrile and lungs are clear (2) Hypokalemia Code(s): E87.6 - HYPOKALEMIA SNOMED Code(s): 66159881 Comment: -resolved -K 3.8 today (3) Dementia Code(s): F03.90 - UNSPECIFIED DEMENTIA WITHOUT BEHAVIORAL DISTURBANCE SNOMED Code(s): 74459209 Comment: -after further discussion with , patient has required much assistance with ambulation at home -PT recommends [facility]; in agreement and possibly would like long-term SNF placement -continue home memantine and donepezil (4) Hypertension Code(s): I10 - ESSENTIAL (PRIMARY) HYPERTENSION SNOMED Code(s): 53372850 Comment: -continue home losartan -pt normotensive (5) Hyperlipidemia Code(s): E78.5 - HYPERLIPIDEMIA, UNSPECIFIED SNOMED Code(s): 36532623 Comment: -takes crestor at home, will give lipitor in hospital (6) Low BMI Code(s): PSB2089 - SNOMED Code(s): 9499478 Comment: -appears patient has gradually lost approx 15 lbs in last 2 years -likely related to poor po intake with dementia -albumin is wnl, but prealbumin is low at 7 -nutrition evaluation completed and no recommendations beyond regular diet at this point given good intake in the hospital (7) DVT prophylaxis Code(s): Z29.9 - ENCOUNTER FOR PROPHYLACTIC MEASURES, UNSPECIFIED SNOMED Code( s): 987171901 Comment: -subQ heparin TID (8) Full code status Code(s): Z78.9 - OTHER SPECIFIED HEALTH STATUS SNOMED Code(s): 440479387 Status and Disposition: pending placement at [facility] vs senior care SNF
[2019-05-03] MEDS: Donepezil TAB* 5 MG PO SCH (21:42)
[2019-05-04] MEDS: ZOSYN 3.375 GM Q8H per EXTENDED INFUSION IVPB SCH ×6 (00:04→16:27)
[2019-05-04] MEDS ORDERED: NS 0.9% 100 ML* 100 ML ONE (08:41)
[2019-05-04] MEDS: Aspirin TAB* 325 MG PO SCH (08:52)
[2019-05-04] MEDS: Losartan TAB* 25 MG PO SCH (08:52)
[2019-05-04] MEDS: Memantine TAB* 10 MG PO SCH ×2 (08:53→21:26)
[2019-05-04] MEDS: Atorvastatin* 10 MG TAB PO SCH (08:53)
[2019-05-04] MEDS: Heparin VIAL(*) 5000 UNITS/ML VIAL (FIVE THOUSAND) SUBCUT SCH ×2 (09:01→21:27)
[2019-05-04 10:40] LABS: ABS Basophils 0.1 10^3/ul (0-0.2); ABS Eosinophils 0.1 10^3/ul (0-0.6); ABS Monocytes 0.6 10^3/ul (0-0.8); Eosinophil % 1.4 %; Hematocrit 33 % (42-52); Hemoglobin 11.2 g/dL (14.0-18.0); Lymphocyte % 9.2 %; Mean Corpuscular HGB Conc 34 g/dL (31-36); Mean Corpuscular Hemoglobin 33 pg (27-31); Mean Corpuscular Volume 97 fL (80-94); Mean Platelet Volume 7.8 fL (7.4-10.4); Platelet Count 276 10^3/uL (150-450); Red Blood Count 3.39 10^6 /uL (4.18-5.48); Red Cell Distribution Width 14 % (10-15); White Blood Count 10.8 10^3/uL (3.5-10.8)
--- NOTE | 2019-05-04 10:52 | PN ---
Subjective Date of Service: 05/04/19 Interval History: Patient is more interactive during visit today. Regards my face and asks about TV. Denies difficulty breathing, fevers/chills, chest pain, abd pain. Endorses that cough continues. Objective Active Medications: Aspirin (Aspirin Tab*) 325 mg PO DAILY [facility] Last Admin: 05/04/19 08:52 Dose: 325 mg Atorvastatin Calcium (Lipitor*) 10 mg PO DAILY [facility]; Protocol Last Admin: 05/04/19 08:53 Dose: 10 mg Donepezil HCl (Aricept Tab*) 10 mg PO BEDTIME [facility] Last Admin: 05/03/19 21:42 Dose: 10 mg Heparin Sodium (Porcine) (Heparin Vial(*)) 5,000 units SUBCUT Q12HR [facility] Last Admin: 05/04/19 09:01 Dose: 5,000 units Piperacillin Sod/Tazobactam (Sod 3.375 gm/ Sodium Chloride) 100 mls @ 25 mls/ hr IVPB Q8H [facility] Last Admin: 05/04/19 09:13 Dose: 25 mls/hr Losartan Potassium (Cozaar Tab*) 50 mg PO DAILY [facility] Last Admin: 05/04/19 08:52 Dose: 50 mg Memantine (Namenda Tab*) 10 mg PO BID [facility] Last Admin: 05/04/19 08:53 Dose: 10 mg Pharmacy Consult (Zosyn Per Pharmacy*) 1 note FOLLOW UP .ZOSYN PER PHARMACY [facility] Vital Signs - 8 hr 05/04/19 05/04/19 05/04/19 03:58 06:51 09:47 Temperature 97.3 F 97.8 F Pulse Rate 76 79 Respiratory 20 18 20 Rate Blood Pressure 143/64 130/59 (mmHg) O2 Sat by Pulse 100 92 92 Oximetry 05/04/19 10:09 Temperature Pulse Rate Respiratory 20 Rate Blood Pressure (mmHg) O2 Sat by Pulse Oximetry Oxygen Devices in Use Now: None Appearance: Thin, elderly white male, laying in hospital bed, appearing in NAD Eyes: No Scleral Icterus, PERRLA Ears/Nose/Mouth/Throat: Mucous Membranes Moist Neck: NL Appearance and Movements; NL JVP Respiratory: Symmetrical Chest Expansion and Respiratory Effort, - - Diminished breath sounds throughout but no crackles, wheezes, or rhonchi Cardiovascular: NL Sounds; No Murmurs; No JVD, RRR Abdominal: - - abdomen soft, nontender, nondistended Extremities: No Edema, No Clubbing, Cyanosis Skin: No Rash or Ulcers Neurological: - - Patient is alert and oriented to self Result Diagrams: 05/04/19 10:32 05/03/19 07:11 Additional Lab and Data: Lab Results 05/01/19 05/01/19 05/01/19 Range/Units 09:59 09:59 09:59 WBC 12.6 H (3.5-10.8) 10^3/uL RBC 3.73 L (4.18-5.48) 10^6 /uL Hgb 12.0 L (14.0-18.0) g/dL Hct 37 L (42-52) % MCV 99 H (80-94) fL MCH 32 H (27-31) pg MCHC 33 (31-36) g/dL RDW 14 (10-15) % Plt Count 282 (150-450) 10^3/uL MPV 7.7 (7.4-10.4) fL Neut % (Auto) 90.4 % Lymph % (Auto) 1.8 % [place] % (Auto) 7.8 % Eos % (Auto) 0.0 % Baso % (Auto) 0.0 % Absolute Neuts (auto) 11.4 H (1.5-7.7) 10^3/ul Absolute Lymphs (auto) 0.2 L (1.0-4.8) 10^3/ul Absolute Monos (auto) 1.0 H (0-0.8) 10^3/ul Absolute Eos (auto) 0.0 (0-0.6) 10^3/ul Absolute Basos (auto) 0.0 (0-0.2) 10^3/ul Absolute Nucleated RBC 0.0 10^3/ul Nucleated RBC % 0.0 ESR Pending INR (Anticoag Therapy) 1.23 H (0.82-1.09) APTT 32.4 (26.0-38.0) seconds Sodium 138 (135-145) mmol/L Potassium 3.9 (3.5-5.0) mmol/L Chloride 104 (101-111) mmol/L Carbon Dioxide 23 (22-32) mmol/L Anion Gap 11 (2-11) mmol/L BUN 21 (6-24) mg/dL Creatinine 0.77 (0.67-1.17) mg/dL Est GFR ( Amer) 120.5 (>60) Est GFR (Non-Af Amer) 99.6 (>60) BUN/Creatinine Ratio 27.3 H (8-20) Glucose 123 H (70-100) mg/dL Lactic Acid (0.5-2.0) mmol/L Calcium 9.4 (8.6-10.3) mg/dL Total Bilirubin 0.60 (0.2-1.0) mg/dL AST 22 (13-39) U/L ALT 14 (7-52) U/L Alkaline Phosphatase 73 (34-104) U/L Troponin I 0.02 (<0.04) ng/mL C-Reactive Protein 103.06 H (<8.01) mg/L Total Protein 6.9 (6.4-8.9) g/dL Albumin 3.8 (3.2-5.2) g/dL Globulin 3.1 (2-4) g/dL Albumin/Globulin Ratio 1.2 (1-3) 05/01/19 Range/Units 09:59 WBC (3.5-10.8) 10^3/uL RBC (4.18-5.48) 10^6 /uL Hgb (14.0-18.0) g/dL Hct (42-52) % MCV (80-94) fL MCH (27-31) pg MCHC (31-36) g/dL RDW (10-15) % Plt Count (150-450) 10^3/uL MPV (7.4-10.4) fL Neut % (Auto) % Lymph % (Auto) % [place] % (Auto) % Eos % (Auto) % Baso % (Auto) % Absolute Neuts (auto) (1.5-7.7) 10^3/ul Absolute Lymphs (auto) (1.0-4.8) 10^3/ul Absolute Monos (auto) (0-0.8) 10^3/ul Absolute Eos (auto) (0-0.6) 10^3/ul Absolute Basos (auto) (0-0.2) 10^3/ul Absolute Nucleated RBC 10^3/ul Nucleated RBC % ESR INR (Anticoag Therapy) (0.82-1.09) APTT (26.0-38.0) seconds Sodium (135-145) mmol/L Potassium (3.5-5.0) mmol/L Chloride (101-111) mmol/L Carbon Dioxide (22-32) mmol/L Anion Gap (2-11) mmol/L BUN (6-24) mg/dL Creatinine (0.67-1.17) mg/dL Est GFR ( Amer) (>60) Est GFR (Non-Af Amer) (>60) BUN/Creatinine Ratio (8-20) Glucose (70-100) mg/dL Lactic Acid 5.0 H* (0.5-2.0) mmol/L Calcium (8.6-10.3) mg/dL Total Bilirubin (0.2-1.0) mg/dL AST (13-39) U/L ALT (7-52) U/L Alkaline Phosphatase (34-104) U/L Troponin I (<0.04) ng/mL C-Reactive Protein (<8.01) mg/L Total Protein (6.4-8.9) g/dL Albumin (3.2-5.2) g/dL Globulin (2-4) g/dL Albumin/Globulin Ratio (1-3) Microbiology and Other Data: Microbiology 05/01/19 10:52 Urine Culture - Final Urine No Growth (<1,000 CFU/mL) Legionella Urinary Antigen - Final Negative Legionella Antigen Streptococcus pneumoniae Ag Screen - Final Negative Legionella Antigen 05/01/19 09:59 Aerobic Blood Culture - Preliminary Blood Venous No Growth Day 1 Anaerobic Blood Culture - Preliminary No Growth Day 1 05/01/19 09:59 Aerobic Blood Culture - Preliminary Blood Venous No Growth Day 1 Anaerobic Blood Culture - Preliminary No Growth Day 1 Assess/Plan/Problems-Billing Assessment: 73 yo male with PMHx dementia, HTN, and HLD presents with family reporting c/o cough and fever. Found to have severe sepsis 2/2 pneumonia. - Patient Problems (1) Pneumonia Code(s): J18.9 - PNEUMONIA, UNSPECIFIED ORGANISM SNOMED Code(s): 845232697 Comment: -CXR demonstrates pneumonia of right lung base and possible infiltrate of left lung base as well -with severe sepsis on admission which is now resolved -likely a component of aspiration as patient coughs with drinking liquids -DESIGN AGENT has evaluated patient and will give thin thick liquids and mechanical ground diet during this acute illness and reassess later -continue zosyn -leukocytosis resolved today -ordering liquid guaifenesin scheduled to help with expectoration as patient has low cough effort (2) Dementia Code(s): F03.90 - UNSPECIFIED DEMENTIA WITHOUT BEHAVIORAL DISTURBANCE SNOMED Code(s): 82520287 Comment: -after further discussion with , patient has required much assistance with ambulation at home -PT recommends [facility]; in agreement and possibly would like long-term SNF placement -continue home memantine and donepezil (3) Hypertension Code(s): I10 - ESSENTIAL (PRIMARY) HYPERTENSION SNOMED Code(s): 50196463 Comment: -continue home losartan -SBP in low 150s at times but overall normotensive, continue to monitor (4) Hyperlipidemia Code(s): E78.5 - HYPERLIPIDEMIA, UNSPECIFIED SNOMED Code(s): 23542271 Comment: -takes crestor at home, will give lipitor in hospital (5) Low BMI Code(s): WLY2515 - SNOMED Code(s): 7537997 Comment: -appears patient has gradually lost approx 15 lbs in last 2 years -likely related to poor po intake with dementia -albumin is wnl, but prealbumin is low at 7 -nutrition evaluation completed and no recommendations beyond regular diet at this point given good intake in the hospital -ordered Ensure with each meal (6) DVT prophylaxis Code(s): Z29.9 - ENCOUNTER FOR PROPHYLACTIC MEASURES, UNSPECIFIED SNOMED Code( s): 944197133 Comment: -subQ heparin TID (7) Full code status Code(s): Z78.9 - OTHER SPECIFIED HEALTH STATUS SNOMED Code(s): 123920652 Status and Disposition: pending placement at [facility] vs fpc SNF
[2019-05-04 11:48] LABS: EGFR African American 185.4 (>60); EGFR Non-African American 153.3 (>60)
[2019-05-04] MEDS: guaiFENesin LIQ* 100 MG/5 ML UDC PO SCH ×2 (12:47→21:26)
[2019-05-04] MEDS: Donepezil TAB* 5 MG PO SCH (21:27)
[2019-05-05] MEDS: ZOSYN 3.375 GM Q8H per EXTENDED INFUSION IVPB SCH ×6 (00:32→16:43)
[2019-05-05] MEDS: Losartan TAB* 25 MG PO SCH (08:52)
[2019-05-05] MEDS: Aspirin TAB* 325 MG PO SCH (08:52)
[2019-05-05] MEDS: Heparin VIAL(*) 5000 UNITS/ML VIAL (FIVE THOUSAND) SUBCUT SCH ×2 (08:53→20:57)
[2019-05-05] MEDS: Atorvastatin* 10 MG TAB PO SCH (08:53)
[2019-05-05] MEDS: guaiFENesin LIQ* 100 MG/5 ML UDC PO SCH ×3 (08:53→20:58)
[2019-05-05] MEDS: Memantine TAB* 10 MG PO SCH ×2 (08:53→20:54)
--- NOTE | 2019-05-05 14:45 | PN ---
Subjective Date of Service: 05/05/19 Objective Active Medications: Aspirin (Aspirin Tab*) 325 mg PO DAILY [facility] Last Admin: 05/05/19 08:52 Dose: 325 mg Atorvastatin Calcium (Lipitor*) 10 mg PO DAILY [facility]; Protocol Last Admin: 05/05/19 08:53 Dose: 10 mg Donepezil HCl (Aricept Tab*) 10 mg PO BEDTIME [facility] Last Admin: 05/04/19 21:27 Dose: 10 mg Guaifenesin (Robitussin*) 20 ml PO TID [facility] Last Admin: 05/05/19 12:58 Dose: 20 ml Heparin Sodium (Porcine) (Heparin Vial(*)) 5,000 units SUBCUT Q12HR [facility] Last Admin: 05/05/19 08:53 Dose: 5,000 units Piperacillin Sod/Tazobactam (Sod 3.375 gm/ Sodium Chloride) 100 mls @ 25 mls/ hr IVPB Q8H [facility] Last Admin: 05/05/19 09:45 Dose: 25 mls/hr Losartan Potassium (Cozaar Tab*) 50 mg PO DAILY [facility] Last Admin: 05/05/19 08:52 Dose: 50 mg Memantine (Namenda Tab*) 10 mg PO BID [facility] Last Admin: 05/05/19 08:53 Dose: 10 mg Pharmacy Consult (Zosyn Per Pharmacy*) 1 note FOLLOW UP .ZOSYN PER PHARMACY [facility] Vital Signs - 8 hr 05/05/19 05/05/19 05/05/19 07:34 08:33 11:00 Temperature 98.4 F Pulse Rate 81 Respiratory 20 16 Rate Blood Pressure 142/56 (mmHg) O2 Sat by Pulse 96 95 Oximetry 05/05/19 13:56 Temperature 98.2 F Pulse Rate 83 Respiratory 20 Rate Blood Pressure 115/55 (mmHg) O2 Sat by Pulse 97 Oximetry Oxygen Devices in Use Now: None Result Diagrams: 05/04/19 10:32 05/04/19 10:29 Additional Lab and Data: Lab Results 05/01/19 05/01/19 05/01/19 Range/Units 09:59 09:59 09:59 WBC 12.6 H (3.5-10.8) 10^3/uL RBC 3.73 L (4.18-5.48) 10^6 /uL Hgb 12.0 L (14.0-18.0) g/dL Hct 37 L (42-52) % MCV 99 H (80-94) fL MCH 32 H (27-31) pg MCHC 33 (31-36) g/dL RDW 14 (10-15) % Plt Count 282 (150-450) 10^3/uL MPV 7.7 (7.4-10.4) fL Neut % (Auto) 90.4 % Lymph % (Auto) 1.8 % [place] % (Auto) 7.8 % Eos % (Auto) 0.0 % Baso % (Auto) 0.0 % Absolute Neuts (auto) 11.4 H (1.5-7.7) 10^3/ul Absolute Lymphs (auto) 0.2 L (1.0-4.8) 10^3/ul Absolute Monos (auto) 1.0 H (0-0.8) 10^3/ul Absolute Eos (auto) 0.0 (0-0.6) 10^3/ul Absolute Basos (auto) 0.0 (0-0.2) 10^3/ul Absolute Nucleated RBC 0.0 10^3/ul Nucleated RBC % 0.0 ESR Pending INR (Anticoag Therapy) 1.23 H (0.82-1.09) APTT 32.4 (26.0-38.0) seconds Sodium 138 (135-145) mmol/L Potassium 3.9 (3.5-5.0) mmol/L Chloride 104 (101-111) mmol/L Carbon Dioxide 23 (22-32) mmol/L Anion Gap 11 (2-11) mmol/L BUN 21 (6-24) mg/dL Creatinine 0.77 (0.67-1.17) mg/dL Est GFR ( Amer) 120.5 (>60) Est GFR (Non-Af Amer) 99.6 (>60) BUN/Creatinine Ratio 27.3 H (8-20) Glucose 123 H (70-100) mg/dL Lactic Acid (0.5-2.0) mmol/L Calcium 9.4 (8.6-10.3) mg/dL Total Bilirubin 0.60 (0.2-1.0) mg/dL AST 22 (13-39) U/L ALT 14 (7-52) U/L Alkaline Phosphatase 73 (34-104) U/L Troponin I 0.02 (<0.04) ng/mL C-Reactive Protein 103.06 H (<8.01) mg/L Total Protein 6.9 (6.4-8.9) g/dL Albumin 3.8 (3.2-5.2) g/dL Globulin 3.1 (2-4) g/dL Albumin/Globulin Ratio 1.2 (1-3) 05/01/19 Range/Units 09:59 WBC (3.5-10.8) 10^3/uL RBC (4.18-5.48) 10^6 /uL Hgb (14.0-18.0) g/dL Hct (42-52) % MCV (80-94) fL MCH (27-31) pg MCHC (31-36) g/dL RDW (10-15) % Plt Count (150-450) 10^3/uL MPV (7.4-10.4) fL Neut % (Auto) % Lymph % (Auto) % [place] % (Auto) % Eos % (Auto) % Baso % (Auto) % Absolute Neuts (auto) (1.5-7.7) 10^3/ul Absolute Lymphs (auto) (1.0-4.8) 10^3/ul Absolute Monos (auto) (0-0.8) 10^3/ul Absolute Eos (auto) (0-0.6) 10^3/ul Absolute Basos (auto) (0-0.2) 10^3/ul Absolute Nucleated RBC 10^3/ul Nucleated RBC % ESR INR (Anticoag Therapy) (0.82-1.09) APTT (26.0-38.0) seconds Sodium (135-145) mmol/L Potassium (3.5-5.0) mmol/L Chloride (101-111) mmol/L Carbon Dioxide (22-32) mmol/L Anion Gap (2-11) mmol/L BUN (6-24) mg/dL Creatinine (0.67-1.17) mg/dL Est GFR ( Amer) (>60) Est GFR (Non-Af Amer) (>60) BUN/Creatinine Ratio (8-20) Glucose (70-100) mg/dL Lactic Acid 5.0 H* (0.5-2.0) mmol/L Calcium (8.6-10.3) mg/dL Total Bilirubin (0.2-1.0) mg/dL AST (13-39) U/L ALT (7-52) U/L Alkaline Phosphatase (34-104) U/L Troponin I (<0.04) ng/mL C-Reactive Protein (<8.01) mg/L Total Protein (6.4-8.9) g/dL Albumin (3.2-5.2) g/dL Globulin (2-4) g/dL Albumin/Globulin Ratio (1-3) Microbiology and Other Data: Microbiology 05/01/19 10:52 Urine Culture - Final Urine No Growth (<1,000 CFU/mL) Legionella Urinary Antigen - Final Negative Legionella Antigen Streptococcus pneumoniae Ag Screen - Final Negative Legionella Antigen 05/01/19 09:59 Aerobic Blood Culture - Preliminary Blood Venous No Growth Day 1 Anaerobic Blood Culture - Preliminary No Growth Day 1 05/01/19 09:59 Aerobic Blood Culture - Preliminary Blood Venous No Growth Day 1 Anaerobic Blood Culture - Preliminary No Growth Day 1 Assess/Plan/Problems-Billing Assessment: 73 yo male with PMHx dementia, HTN, and HLD presents with family reporting c/o cough and fever. Found to have severe sepsis 2/2 pneumonia. - Patient Problems (1) Pneumonia Code(s): J18.9 - PNEUMONIA, UNSPECIFIED ORGANISM SNOMED Code(s): 756657407 Comment: -CXR demonstrates pneumonia of right lung base and possible infiltrate of left lung base as well -with severe sepsis on admission which is now resolved -likely a component of aspiration as patient coughs with drinking liquids -HVAC MECHANICAL ENGINEER has evaluated patient and will give thin thick liquids and mechanical ground diet during this acute illness and reassess later -continue zosyn while placement pending -continue liquid guaifenesin scheduled -leukocytosis resolved, afebrile (2) Dementia Code(s): F03.90 - UNSPECIFIED DEMENTIA WITHOUT BEHAVIORAL DISTURBANCE SNOMED Code(s): 62114814 Comment: -after further discussion with , patient has required much assistance with ambulation at home -PT recommends [facility]; in agreement and possibly would like long-term SNF placement -continue home memantine and donepezil (3) Hypertension Code(s): I10 - ESSENTIAL (PRIMARY) HYPERTENSION SNOMED Code(s): 16734889 Comment: -continue home losartan -SBP in low 150s at times but overall normotensive, continue to monitor (4) Hyperlipidemia Code(s): E78.5 - HYPERLIPIDEMIA, UNSPECIFIED SNOMED Code(s): 10001612 Comment: -takes crestor at home, will give lipitor in hospital (5) Low BMI Code(s): FSX3570 - SNOMED Code(s): 1433178 Comment: -appears patient has gradually lost approx 15 lbs in last 2 years -likely related to poor po intake with dementia -albumin is wnl, but prealbumin is low at 7 -nutrition evaluation completed and no recommendations beyond regular diet at this point given good intake in the hospital -ordered Ensure with each meal (6) DVT prophylaxis Code(s): Z29.9 - ENCOUNTER FOR PROPHYLACTIC MEASURES, UNSPECIFIED SNOMED Code( s): 296831470 Comment: -subQ heparin TID (7) Full code status Code(s): Z78.9 - OTHER SPECIFIED HEALTH STATUS SNOMED Code(s): 078175855 Status and Disposition: pending placement at [facility] vs long term SNF
--- NOTE | 2019-05-05 16:46 | PN ---
Subjective Date of Service: 05/05/19 Interval History: Patient answers questions appropriately. Denies chest pain, difficulty breathing , abd pain, fever/chills. Reports he feels comfortable. Objective Active Medications: Aspirin (Aspirin Tab*) 325 mg PO DAILY [facility] Last Admin: 05/05/19 08:52 Dose: 325 mg Atorvastatin Calcium (Lipitor*) 10 mg PO DAILY [facility]; Protocol Last Admin: 05/05/19 08:53 Dose: 10 mg Donepezil HCl (Aricept Tab*) 10 mg PO BEDTIME [facility] Last Admin: 05/04/19 21:27 Dose: 10 mg Guaifenesin (Robitussin*) 20 ml PO TID [facility] Last Admin: 05/05/19 12:58 Dose: 20 ml Heparin Sodium (Porcine) (Heparin Vial(*)) 5,000 units SUBCUT Q12HR [facility] Last Admin: 05/05/19 08:53 Dose: 5,000 units Piperacillin Sod/Tazobactam (Sod 3.375 gm/ Sodium Chloride) 100 mls @ 25 mls/ hr IVPB Q8H [facility] Last Admin: 05/05/19 09:45 Dose: 25 mls/hr Losartan Potassium (Cozaar Tab*) 50 mg PO DAILY [facility] Last Admin: 05/05/19 08:52 Dose: 50 mg Memantine (Namenda Tab*) 10 mg PO BID [facility] Last Admin: 05/05/19 08:53 Dose: 10 mg Pharmacy Consult (Zosyn Per Pharmacy*) 1 note FOLLOW UP .ZOSYN PER PHARMACY [facility] Vital Signs - 8 hr 05/05/19 05/05/19 11:00 13:56 Temperature 98.2 F Pulse Rate 83 Respiratory 16 20 Rate Blood Pressure 115/55 (mmHg) O2 Sat by Pulse 97 Oximetry Oxygen Devices in Use Now: None Appearance: Thin, elderly white male laying upright in hospital bed, appearing in NAD; restricted affect Eyes: No Scleral Icterus, PERRLA Ears/Nose/Mouth/Throat: Mucous Membranes Moist Neck: NL Appearance and Movements; NL JVP Respiratory: Symmetrical Chest Expansion and Respiratory Effort, Clear to Auscultation Cardiovascular: NL Sounds; No Murmurs; No JVD, RRR Abdominal: - - abd soft, nontender, nondistende Extremities: No Edema, No Clubbing, Cyanosis Skin: No Rash or Ulcers Neurological: - - Patient oriented to self, alert Result Diagrams: 05/04/19 10:32 05/04/19 10:29 Additional Lab and Data: Lab Results 05/01/19 05/01/19 05/01/19 Range/Units 09:59 09:59 09:59 WBC 12.6 H (3.5-10.8) 10^3/uL RBC 3.73 L (4.18-5.48) 10^6 /uL Hgb 12.0 L (14.0-18.0) g/dL Hct 37 L (42-52) % MCV 99 H (80-94) fL MCH 32 H (27-31) pg MCHC 33 (31-36) g/dL RDW 14 (10-15) % Plt Count 282 (150-450) 10^3/uL MPV 7.7 (7.4-10.4) fL Neut % (Auto) 90.4 % Lymph % (Auto) 1.8 % [place] % (Auto) 7.8 % Eos % (Auto) 0.0 % Baso % (Auto) 0.0 % Absolute Neuts (auto) 11.4 H (1.5-7.7) 10^3/ul Absolute Lymphs (auto) 0.2 L (1.0-4.8) 10^3/ul Absolute Monos (auto) 1.0 H (0-0.8) 10^3/ul Absolute Eos (auto) 0.0 (0-0.6) 10^3/ul Absolute Basos (auto) 0.0 (0-0.2) 10^3/ul Absolute Nucleated RBC 0.0 10^3/ul Nucleated RBC % 0.0 ESR Pending INR (Anticoag Therapy) 1.23 H (0.82-1.09) APTT 32.4 (26.0-38.0) seconds Sodium 138 (135-145) mmol/L Potassium 3.9 (3.5-5.0) mmol/L Chloride 104 (101-111) mmol/L Carbon Dioxide 23 (22-32) mmol/L Anion Gap 11 (2-11) mmol/L BUN 21 (6-24) mg/dL Creatinine 0.77 (0.67-1.17) mg/dL Est GFR ( Amer) 120.5 (>60) Est GFR (Non-Af Amer) 99.6 (>60) BUN/Creatinine Ratio 27.3 H (8-20) Glucose 123 H (70-100) mg/dL Lactic Acid (0.5-2.0) mmol/L Calcium 9.4 (8.6-10.3) mg/dL Total Bilirubin 0.60 (0.2-1.0) mg/dL AST 22 (13-39) U/L ALT 14 (7-52) U/L Alkaline Phosphatase 73 (34-104) U/L Troponin I 0.02 (<0.04) ng/mL C-Reactive Protein 103.06 H (<8.01) mg/L Total Protein 6.9 (6.4-8.9) g/dL Albumin 3.8 (3.2-5.2) g/dL Globulin 3.1 (2-4) g/dL Albumin/Globulin Ratio 1.2 (1-3) 05/01/19 Range/Units 09:59 WBC (3.5-10.8) 10^3/uL RBC (4.18-5.48) 10^6 /uL Hgb (14.0-18.0) g/dL Hct (42-52) % MCV (80-94) fL MCH (27-31) pg MCHC (31-36) g/dL RDW (10-15) % Plt Count (150-450) 10^3/uL MPV (7.4-10.4) fL Neut % (Auto) % Lymph % (Auto) % [place] % (Auto) % Eos % (Auto) % Baso % (Auto) % Absolute Neuts (auto) (1.5-7.7) 10^3/ul Absolute Lymphs (auto) (1.0-4.8) 10^3/ul Absolute Monos (auto) (0-0.8) 10^3/ul Absolute Eos (auto) (0-0.6) 10^3/ul Absolute Basos (auto) (0-0.2) 10^3/ul Absolute Nucleated RBC 10^3/ul Nucleated RBC % ESR INR (Anticoag Therapy) (0.82-1.09) APTT (26.0-38.0) seconds Sodium (135-145) mmol/L Potassium (3.5-5.0) mmol/L Chloride (101-111) mmol/L Carbon Dioxide (22-32) mmol/L Anion Gap (2-11) mmol/L BUN (6-24) mg/dL Creatinine (0.67-1.17) mg/dL Est GFR ( Amer) (>60) Est GFR (Non-Af Amer) (>60) BUN/Creatinine Ratio (8-20) Glucose (70-100) mg/dL Lactic Acid 5.0 H* (0.5-2.0) mmol/L Calcium (8.6-10.3) mg/dL Total Bilirubin (0.2-1.0) mg/dL AST (13-39) U/L ALT (7-52) U/L Alkaline Phosphatase (34-104) U/L Troponin I (<0.04) ng/mL C-Reactive Protein (<8.01) mg/L Total Protein (6.4-8.9) g/dL Albumin (3.2-5.2) g/dL Globulin (2-4) g/dL Albumin/Globulin Ratio (1-3) Microbiology and Other Data: Microbiology 05/01/19 10:52 Urine Culture - Final Urine No Growth (<1,000 CFU/mL) Legionella Urinary Antigen - Final Negative Legionella Antigen Streptococcus pneumoniae Ag Screen - Final Negative Legionella Antigen 05/01/19 09:59 Aerobic Blood Culture - Preliminary Blood Venous No Growth Day 1 Anaerobic Blood Culture - Preliminary No Growth Day 1 05/01/19 09:59 Aerobic Blood Culture - Preliminary Blood Venous No Growth Day 1 Anaerobic Blood Culture - Preliminary No Growth Day 1 Assess/Plan/Problems-Billing Assessment: 73 yo male with PMHx dementia, HTN, and HLD presents with family reporting c/o cough and fever. Found to have severe sepsis 2/2 pneumonia. - Patient Problems (1) Pneumonia Code(s): J18.9 - PNEUMONIA, UNSPECIFIED ORGANISM SNOMED Code(s): 667093137 Comment: -CXR demonstrates pneumonia of right lung base and possible infiltrate of left lung base as well -with severe sepsis on admission which is now resolved -likely a component of aspiration as patient coughs with drinking liquids -BODY MAKER MACHINE SETTER has evaluated patient and will give thin thick liquids and mechanical ground diet during this acute illness and reassess later -urine antigens negative, blood culture no growth to date -continue zosyn while placement pending -continue liquid guaifenesin scheduled -leukocytosis resolved, afebrile (2) Dementia Code(s): F03.90 - UNSPECIFIED DEMENTIA WITHOUT BEHAVIORAL DISTURBANCE SNOMED Code(s): 76201987 Comment: -after further discussion with , patient has required much assistance with ambulation at home -PT recommends [facility]; in agreement and possibly would like long-term SNF placement -continue home memantine and donepezil (3) Hypertension Code(s): I10 - ESSENTIAL (PRIMARY) HYPERTENSION SNOMED Code(s): 70676737 Comment: -continue home losartan -SBP in low 150s at times but overall normotensive, continue to monitor (4) Hyperlipidemia Code(s): E78.5 - HYPERLIPIDEMIA, UNSPECIFIED SNOMED Code(s): 07654252 Comment: -takes crestor at home, will give lipitor in hospital (5) Low BMI Code(s): XCI5943 - SNOMED Code(s): 1301472 Comment: -appears patient has gradually lost approx 15 lbs in last 2 years -likely related to poor po intake with dementia -albumin is wnl, but prealbumin is low at 7 -nutrition evaluation completed and no recommendations beyond regular diet at this point given good intake in the hospital -ordered Ensure with each meal (6) DVT prophylaxis Code(s): Z29.9 - ENCOUNTER FOR PROPHYLACTIC MEASURES, UNSPECIFIED SNOMED Code( s): 152726359 Comment: -subQ heparin TID (7) Full code status Code(s): Z78.9 - OTHER SPECIFIED HEALTH STATUS SNOMED Code(s): 431331239 Status and Disposition: pending placement at [facility] vs [facility]
[2019-05-05 18:21] LABS: EGFR African American 181.5 (>60)
[2019-05-05] MEDS: Donepezil TAB* 5 MG PO SCH (20:55)
[2019-05-06] MEDS: ZOSYN 3.375 GM Q8H per EXTENDED INFUSION IVPB SCH ×6 (00:28→17:24)
[2019-05-06] MEDS: Memantine TAB* 10 MG PO SCH ×2 (09:48→21:38)
[2019-05-06] MEDS: guaiFENesin LIQ* 100 MG/5 ML UDC PO SCH ×3 (09:48→21:39)
[2019-05-06] MEDS: Aspirin TAB* 325 MG PO SCH (09:48)
[2019-05-06] MEDS: Losartan TAB* 25 MG PO SCH (09:48)
[2019-05-06] MEDS: Atorvastatin* 10 MG TAB PO SCH (09:48)
[2019-05-06] MEDS: Heparin VIAL(*) 5000 UNITS/ML VIAL (FIVE THOUSAND) SUBCUT SCH ×2 (09:49→21:39)
--- NOTE | 2019-05-06 12:04 | PN ---
Subjective Date of Service: 05/06/19 Interval History: Patient's at bedside today, putting in SNF choices with case management. Patient is less interactive today but still answers questions. Denies chest pain , difficulty breathing, fever/chlils. Objective Active Medications: Aspirin (Aspirin Tab*) 325 mg PO DAILY [facility] Last Admin: 05/06/19 09:48 Dose: 325 mg Atorvastatin Calcium (Lipitor*) 10 mg PO DAILY [facility]; Protocol Last Admin: 05/06/19 09:48 Dose: 10 mg Donepezil HCl (Aricept Tab*) 10 mg PO BEDTIME [facility] Last Admin: 05/05/19 20:55 Dose: 10 mg Guaifenesin (Robitussin*) 20 ml PO TID [facility] Last Admin: 05/06/19 09:48 Dose: 20 ml Heparin Sodium (Porcine) (Heparin Vial(*)) 5,000 units SUBCUT Q12HR [facility] Last Admin: 05/06/19 09:49 Dose: 5,000 units Piperacillin Sod/Tazobactam (Sod 3.375 gm/ Sodium Chloride) 100 mls @ 25 mls/ hr IVPB Q8H [facility] Last Admin: 05/06/19 09:49 Dose: 25 mls/hr Losartan Potassium (Cozaar Tab*) 50 mg PO DAILY [facility] Last Admin: 05/06/19 09:48 Dose: 50 mg Memantine (Namenda Tab*) 10 mg PO BID [facility] Last Admin: 05/06/19 09:48 Dose: 10 mg Pharmacy Consult (Zosyn Per Pharmacy*) 1 note FOLLOW UP .ZOSYN PER PHARMACY [facility] Vital Signs - 8 hr 05/06/19 05/06/19 05/06/19 07:30 08:00 11:20 Temperature 98.5 F 97.8 F Pulse Rate 84 99 Respiratory 20 20 20 Rate Blood Pressure 147/72 99/57 (mmHg) O2 Sat by Pulse 96 96 93 Oximetry Oxygen Devices in Use Now: None Appearance: Thin, elderly white male sitting upright in hospital chair, appearing in NAD; restricted affect Eyes: No Scleral Icterus, PERRLA Ears/Nose/Mouth/Throat: Mucous Membranes Moist Neck: NL Appearance and Movements; NL JVP Respiratory: Symmetrical Chest Expansion and Respiratory Effort, - - poor respiratory effort, but clear to auscultation; cough present Cardiovascular: NL Sounds; No Murmurs; No JVD, RRR Abdominal: - - abd soft, nontender, nondistended Extremities: No Edema, No Clubbing, Cyanosis Skin: No Rash or Ulcers Neurological: - - Patient is alert, oriented to self Result Diagrams: 05/04/19 10:32 05/05/19 17:38 Additional Lab and Data: Lab Results 05/01/19 05/01/19 05/01/19 Range/Units 09:59 09:59 09:59 WBC 12.6 H (3.5-10.8) 10^3/uL RBC 3.73 L (4.18-5.48) 10^6 /uL Hgb 12.0 L (14.0-18.0) g/dL Hct 37 L (42-52) % MCV 99 H (80-94) fL MCH 32 H (27-31) pg MCHC 33 (31-36) g/dL RDW 14 (10-15) % Plt Count 282 (150-450) 10^3/uL MPV 7.7 (7.4-10.4) fL Neut % (Auto) 90.4 % Lymph % (Auto) 1.8 % [place] % (Auto) 7.8 % Eos % (Auto) 0.0 % Baso % (Auto) 0.0 % Absolute Neuts (auto) 11.4 H (1.5-7.7) 10^3/ul Absolute Lymphs (auto) 0.2 L (1.0-4.8) 10^3/ul Absolute Monos (auto) 1.0 H (0-0.8) 10^3/ul Absolute Eos (auto) 0.0 (0-0.6) 10^3/ul Absolute Basos (auto) 0.0 (0-0.2) 10^3/ul Absolute Nucleated RBC 0.0 10^3/ul Nucleated RBC % 0.0 ESR Pending INR (Anticoag Therapy) 1.23 H (0.82-1.09) APTT 32.4 (26.0-38.0) seconds Sodium 138 (135-145) mmol/L Potassium 3.9 (3.5-5.0) mmol/L Chloride 104 (101-111) mmol/L Carbon Dioxide 23 (22-32) mmol/L Anion Gap 11 (2-11) mmol/L BUN 21 (6-24) mg/dL Creatinine 0.77 (0.67-1.17) mg/dL Est GFR ( Amer) 120.5 (>60) Est GFR (Non-Af Amer) 99.6 (>60) BUN/Creatinine Ratio 27.3 H (8-20) Glucose 123 H (70-100) mg/dL Lactic Acid (0.5-2.0) mmol/L Calcium 9.4 (8.6-10.3) mg/dL Total Bilirubin 0.60 (0.2-1.0) mg/dL AST 22 (13-39) U/L ALT 14 (7-52) U/L Alkaline Phosphatase 73 (34-104) U/L Troponin I 0.02 (<0.04) ng/mL C-Reactive Protein 103.06 H (<8.01) mg/L Total Protein 6.9 (6.4-8.9) g/dL Albumin 3.8 (3.2-5.2) g/dL Globulin 3.1 (2-4) g/dL Albumin/Globulin Ratio 1.2 (1-3) 05/01/19 Range/Units 09:59 WBC (3.5-10.8) 10^3/uL RBC (4.18-5.48) 10^6 /uL Hgb (14.0-18.0) g/dL Hct (42-52) % MCV (80-94) fL MCH (27-31) pg MCHC (31-36) g/dL RDW (10-15) % Plt Count (150-450) 10^3/uL MPV (7.4-10.4) fL Neut % (Auto) % Lymph % (Auto) % [place] % (Auto) % Eos % (Auto) % Baso % (Auto) % Absolute Neuts (auto) (1.5-7.7) 10^3/ul Absolute Lymphs (auto) (1.0-4.8) 10^3/ul Absolute Monos (auto) (0-0.8) 10^3/ul Absolute Eos (auto) (0-0.6) 10^3/ul Absolute Basos (auto) (0-0.2) 10^3/ul Absolute Nucleated RBC 10^3/ul Nucleated RBC % ESR INR (Anticoag Therapy) (0.82-1.09) APTT (26.0-38.0) seconds Sodium (135-145) mmol/L Potassium (3.5-5.0) mmol/L Chloride (101-111) mmol/L Carbon Dioxide (22-32) mmol/L Anion Gap (2-11) mmol/L BUN (6-24) mg/dL Creatinine (0.67-1.17) mg/dL Est GFR ( Amer) (>60) Est GFR (Non-Af Amer) (>60) BUN/Creatinine Ratio (8-20) Glucose (70-100) mg/dL Lactic Acid 5.0 H* (0.5-2.0) mmol/L Calcium (8.6-10.3) mg/dL Total Bilirubin (0.2-1.0) mg/dL AST (13-39) U/L ALT (7-52) U/L Alkaline Phosphatase (34-104) U/L Troponin I (<0.04) ng/mL C-Reactive Protein (<8.01) mg/L Total Protein (6.4-8.9) g/dL Albumin (3.2-5.2) g/dL Globulin (2-4) g/dL Albumin/Globulin Ratio (1-3) Microbiology and Other Data: Microbiology 05/01/19 10:52 Urine Culture - Final Urine No Growth (<1,000 CFU/mL) Legionella Urinary Antigen - Final Negative Legionella Antigen Streptococcus pneumoniae Ag Screen - Final Negative Legionella Antigen 05/01/19 09:59 Aerobic Blood Culture - Preliminary Blood Venous No Growth Day 1 Anaerobic Blood Culture - Preliminary No Growth Day 1 05/01/19 09:59 Aerobic Blood Culture - Preliminary Blood Venous No Growth Day 1 Anaerobic Blood Culture - Preliminary No Growth Day 1 Assess/Plan/Problems-Billing Assessment: 73 yo male with PMHx dementia, HTN, and HLD presents with family reporting c/o cough and fever. Found to have severe sepsis 2/2 pneumonia. 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 has evaluated patient and will give thin thick liquids and mechanical ground diet -urine antigens negative, blood culture no growth to date -continue zosyn while placement pending - tomorrow will be day 7 and Zosyn can be d/c after administration -continue liquid guaifenesin scheduled -leukocytosis resolved, afebrile; cough continues, ordered flutter valve (2) Dementia Code(s): F03.90 - UNSPECIFIED DEMENTIA WITHOUT BEHAVIORAL DISTURBANCE SNOMED Code(s): 79893949 Comment: -after further discussion with , patient has required much assistance with ambulation at home -PT recommends [facility]; in agreement and possibly would like long-term SNF placement -continue home memantine and donepezil (3) Hypertension Code(s): I10 - ESSENTIAL (PRIMARY) HYPERTENSION SNOMED Code(s): 69459049 Comment: -continue home losartan -SBP 99 today will continue to monitor but overall normotensive (4) Hyperlipidemia Code(s): E78.5 - HYPERLIPIDEMIA, UNSPECIFIED SNOMED Code(s): 99413971 Comment: -takes crestor at home, will give lipitor in hospital (5) Low BMI Code(s): BRY3863 - SNOMED Code(s): 1915910 Comment: -appears patient has gradually lost approx 15 lbs in last 2 years -likely related to poor po intake with dementia -albumin is wnl, but prealbumin is low at 7 -nutrition evaluation completed and no recommendations beyond regular diet at this point given good intake in the hospital -continue Ensure with each meal (6) DVT prophylaxis Code(s): Z29.9 - ENCOUNTER FOR PROPHYLACTIC MEASURES, UNSPECIFIED SNOMED Code( s): 541444255 Comment: -subQ heparin TID (7) Full code status Code(s): Z78.9 - OTHER SPECIFIED HEALTH STATUS SNOMED Code(s): 803208431 Status and Disposition: pending placement at [facility] vs [facility] SNF;
[2019-05-06] MEDS: Donepezil TAB* 5 MG PO SCH (21:38)
[2019-05-07] MEDS: ZOSYN 3.375 GM Q8H per EXTENDED INFUSION IVPB SCH ×4 (00:43→09:37)
[2019-05-07 07:45] LABS: BUN/Creatinine Ratio 27.3 (8-20); Potassium 4.3 mmol/L (3.5-5.0)
[2019-05-07] MEDS: Aspirin TAB* 325 MG PO SCH (09:36)
[2019-05-07] MEDS: Memantine TAB* 10 MG PO SCH (09:36)
[2019-05-07] MEDS: Losartan TAB* 25 MG PO SCH (09:37)
[2019-05-07] MEDS: guaiFENesin LIQ* 100 MG/5 ML UDC PO SCH (09:37)
[2019-05-07] MEDS: Heparin VIAL(*) 5000 UNITS/ML VIAL (FIVE THOUSAND) SUBCUT SCH (09:37)
[2019-05-07] MEDS: Atorvastatin* 10 MG TAB PO SCH (09:37)
[2019-05-07 10:53] VITALS: BP 97/57
--- NOTE | 2019-05-07 12:07 | DS ---
CC: Dr. Vann DATE OF ADMISSION: 05/01/2019. DATE OF DISCHARGE: 05/07/2019. PRIMARY CARE PHYSICIAN: Dr. Govind Vann. PRIMARY DIAGNOSIS: 1. Pneumonia, likely aspiration pneumonia. SECONDARY DIAGNOSES: 1. Alzheimer's dementia. 2. Hypertension. 3. Protein calorie malnutrition. DISCHARGE MEDICATIONS: 1. Memantine 10 mg twice a day. 2. Donepezil 10 mg nightly. 3. Losartan 25 mg nightly. 4. Aspirin 325 mg daily. 5. Alendronate 70 mg weekly. 6. Guaifenesin 20 ml three times a day as needed for cough. 7. Calcium/vitamin D3 supplement. 8. Vitamin E supplement. HISTORY OF PRESENT ILLNESS: Mr. García is a 73-year-old male with a past medical history of dementia and hypertension who had initially presented to Urgent Care for evaluation of weakness. However, he was sent to the emergency room for further evaluation. The is the patient's primary caregiver and provided most history obtained as the patient is only somewhat verbal. The reports that on the morning of presentation she was attempting to get him off the toilet, but she was unable to lift him because he was too weak to stand and help her. Usually the patient can stand with her assistance. The patient' s reports that he had an episode of diarrhea on the day prior to presentation and she had given him Pepto- Bismol without further episodes of diarrhea. She also reports that he has been experiencing an increased cough and progressive generalized weakness. The patient denies chest pain, but also denies cough, hemoptysis or shortness of breath. The patient's denies any hematuria or urinary frequency. The patient's also reports that the patient is noted to choke at times when drinking liquids. HOSPITAL COURSE: In the emergency room, the patient was noted to have a fever of 102, leukocytosis to 12.6, and lactic acid of 5. He was given Tylenol, a 30 cc/kg IV fluid bolus, Ceftriaxone, and Azithromycin, and asked to be admitted to the Medical Service. He was switched from community-acquired pneumonia empiric treatment to Zosyn given concern for aspiration pneumonia. His lactic acid level returned to normal after fluids. Throughout admission, the patient has denied shortness of breath or difficulty breathing, though of note, he has generally been pleasantly demented and will occasionally smile when asked questions and is frequently nonverbal. He completed a total of seven days of Zosyn treatment for concern for aspiration pneumonia. His was interested in pursuing assisted placement given increasing difficulty of managing the patient's care at home. The patient remained afebrile after initiation of antibiotics and his white blood cell count returned to normal. He was deemed ready for placement at a nursing facility and he was accepted to [facility], [place] on the day of discharge. On the day of discharge, patient denied 10-point ROS. PHYSICAL EXAMINATION: General: Frail-appearing, elderly man, appears older than his stated age in no acute distress, sitting in a chair and eating food being fed to him by a nurse's aide. Frequently smiles. No increased work of breathing. Vital Signs: Afebrile, heart rate 80s, blood pressure 141/62, respiratory rate 19, oxygen saturation 92 percent on room air. HEENT: Moist mucus membranes, no scleral icterus. Neck: No JVD. Lungs: Clear to auscultation bilaterally. No cough on exam. Heart: Regular rate and rhythm. No murmurs, gallops, or rubs. Abdomen: Soft, nontender, nondistended. Extremities: Warm and well-perfused, no edema. Neuro: Oriented to self, not location or date. PERTINENT STUDIES AND LAB DATA: 1. Labs reviewed and significant for leukocytosis to 14, now resolved. Hemoglobin 11.2 with MCV 99. Prealbumin 7. 2. Chest x-ray with right basilar pneumonia with probable additional mild inflammatory infiltrate at the left lung base and stigmata of chronic obstruction pulmonary disease and emphysema. DISCHARGE PLAN: The patient is to be discharged to [facility]. He has already completed a course of antibiotics for concern for aspiration pneumonia. He is to continue home medications as listed above, but it is recommended to continue to reassess utility of dementia medications and medications for primary prophylaxis of cerebral vascular disease. He should have a serum Vitamin B12 level checked. He will also need continuous monitoring of his blood pressure given occasionally labile blood pressures while admitted to the hospital. He should resume a regular diet with activity as tolerated. DISPOSITION: [facility], [place]. CONDITION: Improved. TIME SPENT: Approximately 60 minutes were spent on the discharge of this patient, more than half of which was spent with care and coordination at the bedside for interview and exam. [id number]/[facility] #: [id number] RHINA
[2019-05-07 14:11] LABS: Folate 18.97 ng/mL (>3.99)
== END 2019-05-07 14:28 | DRG 871 ==
LOC: ED 09:20 → MEDTELE 11:56
PROVIDERS: ADMIT Internal Medicine; ATTEND Internal Medicine
DX: A41.9 Sepsis, unspecified organism (principal); J69.0 Pneumonitis due to inhalation of food and vomit; E46 Unspecified protein-calorie malnutrition; E87.2 Acidosis; Z68.1 Body mass index [BMI] 19.9 or less, adult; E78.00 Pure hypercholesterolemia, unspecified; I10 Essential (primary) hypertension; G30.9 Alzheimer's disease, unspecified; F02.80 Dementia in other diseases classified elsewhere, unspecified severity, without behavioral disturbance, psychotic disturbance, mood disturbance, and anxiety; R54 Age-related physical debility; R65.20 Severe sepsis without septic shock; J43.9 Emphysema, unspecified; E78.5 Hyperlipidemia, unspecified; E87.6 Hypokalemia; Z82.5 Family history of asthma and other chronic lower respiratory diseases; Z91.013 Allergy to seafood; Z87.891 Personal history of nicotine dependence; Z80.7 Family history of other malignant neoplasms of lymphoid, hematopoietic and related tissues; Z80.8 Family history of malignant neoplasm of other organs or systems; Z79.82 Long term (current) use of aspirin; Z95.828 Presence of other vascular implants and grafts
CPT/HCPCS: 36415; 71045; 80048; 80053; 81003; 81015; 82565; 82607; 82746; 83605; 84134; 84484; 84520; 85025; 85610; 85652; 85730; 86140; 87040; 87086; 87899; 93005; 99284; A9270-GY; G8978-GP-CK; G8979-GP-CI; J0456; J0696; J1644; J2543; J3370; J3480

== ENCOUNTER 2019-05-11 19:30 | Inpatient (IN) | payer MEDICARE, OTHER ==
--- NOTE | 2019-05-11 19:41 | ED ---
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 Per EMS, Patient was hospitalized last week with pneumonia and symptoms returned today. Patient experienced heavy diaphoresis and diarrhea. Patient has dementia and is unable to answer questions. - History of Current Complaint Stated Complaint: SOB PER Hx Obtained From: EMS Character: Dyspnea at Rest Associated Signs and Symptoms: SOB - Allergy/Home Medications Allergies/Adverse Reactions: Allergies Allergy/AdvReac Type Severity Reaction Status Date / Time shellfish derived Allergy Nausea Verified 05/01/19 08:50 Home Medications: Home Medications Vitamin E CAP* 400 unit PO DAILY 05/11/19 [History Confirmed 05/11/19] PMH/Surg Hx/FS Hx/Imm Hx Endocrine/Hematology History: Reports: Hx Anticoagulant Therapy - Baby aspirin 81 mg daily. Denies: Hx Diabetes, Hx Thyroid Disease Cardiovascular History: Reports: Hx Hypercholesterolemia, Hx Hypertension - MEDICATED Denies: Hx Congestive Heart Failure, Hx Deep Vein Thrombosis, Hx Myocardial Infarction, Hx Pacemaker/ICD Respiratory History: Denies: Hx Asthma, Hx Chronic Obstructive Pulmonary Disease (COPD), Hx Lung Cancer, Hx Pneumonia, Hx Pulmonary Embolism GI History: Denies: Hx Gall Bladder Disease, Hx Gastrointestinal Bleed, Hx Ulcer, Hx Urosepsis History: Denies: Hx Kidney Stones, Hx Renal Disease Musculoskeletal History: Reports: Other Musculoskeletal History - back surgery Sensory History: Reports: Hx Contacts or Glasses Denies: Hx Hearing Aid Opthamlomology History: Reports: Hx Contacts or Glasses Neurological History: Reports: Hx Dementia Denies: Hx Migraine, Hx Seizures, Hx Transient Ischemic Attacks (TIA) Psychiatric History: Denies: Hx Anxiety, Hx Depression, Hx Panic Disorder, Hx Schizophrenia, Hx Bipolar Disorder - Surgical History Surgery Procedure, Year, and Place: PT HAS LEMITRIE VASCULAR XENOSURE BOVINE PATCH CONDITIONAL 6 SAFE 3T-INFO SCANNED INTO OTHER FACILITY OP REPORTS. LIFE STENT X3 POST 8 WEEKS SAFE AT 3T BARD-INFO IN MRI FOLDER. LUMBAR SPINE LAMINECTOMY L5-S1. Finger Amputations. HERNIA REPAIR. 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 STENTS IN RT LEG SUPERFICIAL ILIAC ARTERY. BOVINE PATCH CAROTID ARTERECTOMY WITH SHUNT. RT KNEE ARTHROSCOPY - Family History Known Family History: Negative: Cardiac Disease, Hypertension - Social History Alcohol Use: None Hx Substance Use: No Substance Use Type: Reports: None Smoking Status (MU): Former Smoker Review of Systems Positive: Skin Diaphoresis Positive: Shortness Of Breath Positive: Diarrhea All Other Systems Reviewed And Are Negative: Yes Physical Exam - Summary Physical Exam Summary: Appearance: The patient is well-nourished in no acute distress and in no acute pain. Skin: The skin is warm and dry and skin color reflects adequate perfusion. HEENT: The head is normocephalic and atraumatic. The pupils are equal and reactive. The conjunctivae are clear and without drainage. Nares are patent and without drainage. Mouth reveals moist mucous membranes and the throat is without erythema and exudate. The external ears are intact. The ear canals are patent and without drainage. The tympanic membranes are intact. Neck: The neck is supple with full range of motion and non-tender. There are no carotid bruits. There is no neck vein distension. Respiratory: Chest is non-tender. Tachypnic. Crackles in the left base. Cardiovascular: Heart is tachycardic with regular rhythm. There is no murmur or rub auscultated. There is no peripheral edema and pulses are symmetrical and equal. Abdomen: The abdomen is soft and non-tender. There are normal bowel sounds heard in all four quadrants and there is no organomegaly palpated. Musculoskeletal: There is no back tenderness noted. Extremities are non-tender with full range of motion. There is good capillary refill. There is no peripheral edema or calf tenderness elicited. Neurological: Patient is alert and oriented to person, place and time. The patient has symmetrical motor strength in all four extremities. Cranial nerves are grossly intact. Deep tendon reflexes are symmetrical and equal in all four extremities. Psychiatric: The patient has an appropriate affect and does not exhibit any anxiety or depression. Triage Information Reviewed: Yes Vital Signs On Initial Exam: Temp Pulse Resp BP Pulse Ox 98.4 F 127 30 144/100 96 05/11/19 19:36 05/11/19 19:36 05/11/19 19:36 05/11/19 19:36 05/11/19 19:36 Vital Signs Reviewed: Yes Diagnostics - Laboratory Result Diagrams: 05/11/19 20:06 05/11/19 20:06 Lab Statement: Any lab studies that have been ordered have been reviewed, and results considered in the medical decision making process. - Radiology CXR Radiology Interpretation Completed By: ED Physician Summary of Radiographic Findings: Improved from 05/01/19. Pending official radiologist report. - EKG 1939 Cardiac Rate: Tachycardia EKG Rhythm: Sinus Tachycardia - 127 BPM Summary of EKG Findings: Baseline wander Re-Evaluation - Re-Evaluation First Eval Re-Evaluation Time: 20:36 Change: Unchanged Comment: Respiratory rate is 25. Patient looks uncomfortable. Still tachycardic. Disposition - Course Course Of Treatment: Mr. García was found by the EMS had [facility] to have a SPO2 of 80 on 3 L which is what he is normally on. They gave him additional oxygen and transported him into the emergency department. He is unable to give any history secondary to severe dementia. He arrived tachypneic, tachycardic and in obvious respiratory distress. He was given IV fluids for presumed sepsis. An evaluation of his previous chart reveals that he was admitted for sepsis and pneumonia possibly aspiration pneumonia. His CBC returned at 32,000 and IV Zosyn and Levaquin were ordered for him. The hospitalist was contacted for admission. He did improve with vapotherm and fluids. - Diagnoses Provider Diagnoses: Severe sepsis - Physician Notifications Discussed Care Of Patient With: Emma Issa - Hospitalist Time Discussed With Above Provider: 20:43 Instructed by Provider To: Admit As Inpatient - Critical Care Time Critical Care Time: 30-74 min - 30 mins Discharge - Sign-Out/Discharge Documenting (check all that apply): Patient Departure - Admision Patient Received Moderate/Deep Sedation with Procedure: No - Discharge Plan Condition: Critical Disposition: ADMITTED TO [facility] Referrals: Govind Vann MD [Primary Care Provider] - - Billing Disposition and Condition Condition: CRITICAL Disposition: Admitted to [facility] - Attestation Statements Document Initiated by Ihsan: Yes Documenting Scribe: Jorge Bauer Provider For Whom Ihsan is Documenting (Include Credential): Obdulio Louis MD Scribe Attestation: Jorge Causey, scribed for Obdulio Louis MD on 05/11/19 at 2153. Scribe Documentation Reviewed: Yes Provider Attestation: The documentation as recorded by the Jorge paulino accurately reflects the service I personally performed and the decisions made by me, Obdulio Louis MD Status of Scribe Document: Viewed
[2019-05-11] MEDS ORDERED: NS 0.9% 1000 ML** 1,000 ML IV.FLUID IV ONE (19:45)
[2019-05-11 20:13] LABS: Hematocrit 38 % (42-52); Hemoglobin 12.5 g/dL (14.0-18.0); Mean Corpuscular HGB Conc 33 g/dL (31-36); Mean Corpuscular Hemoglobin 32 pg (27-31); Mean Corpuscular Volume 97 fL (80-94); Mean Platelet Volume 7.7 fL (7.4-10.4); Platelet Count 527 10^3/uL (150-450); Red Blood Count 3.87 10^6 /uL (4.18-5.48); Red Cell Distribution Width 14 % (10-15); White Blood Count 32.8 10^3/uL (3.5-10.8)
[2019-05-11 20:16] LABS: ABS Lymphocytes 0.4 10^3/ul (1.0-4.8); ABS Monocytes 1.1 10^3/ul (0-0.8); ABS Neutrophils 31.3 10^3/ul (1.5-7.7); Lymphocyte % 1.3 %; Nucleated Red Blood Cells % 0.1
[2019-05-11] MEDS ORDERED: Piperacillin/Tazobac ADVAN(*) 3.375 GM in NS 0.9% 100 ML* 100 ML IVPB ONE (20:16)
[2019-05-11] MEDS ORDERED: Levofloxacin 750 MG IVPREMIX(* 750 MG/150 ML BAG IVPB ONE (20:17)
[2019-05-11 20:27] LABS: INR 1.2 (0.82-1.09)
[2019-05-11 20:31] LABS: ALT 35 U/L (7-52); AST 25 U/L (13-39); Albumin 3.8 g/dL (3.2-5.2); Alkaline Phosphatase 110 U/L (34-104); Anion Gap 17 mmol/L (2-11); BUN/Creatinine Ratio 32.1 (8-20); Blood Urea Nitrogen 36 mg/dL (6-24); C Reactive Protein 277.03 mg/L (<8.01); CO2 Carbon Dioxide 19 mmol/L (22-32); Calcium 10.9 mg/dL (8.6-10.3); Chloride 99 mmol/L (101-111); EGFR African American 78.2 (>60); EGFR Non-African American 64.6 (>60); Globulin 3.8 g/dL (2-4); Glucose 165 mg/dL (70-100); Potassium 3.9 mmol/L (3.5-5.0); Sodium 135 mmol/L (135-145); Total Protein 7.6 g/dL (6.4-8.9)
[2019-05-11 20:36] LABS: Troponin I 0.05 ng/mL (<0.04)
[2019-05-11] MEDS ORDERED: NS 0.9% 1000 ML** 1,000 ML IV ONE (21:51)
[2019-05-11 22:46] LABS: Urine Appearance Cloudy; Urine Bacteria Absent (Absent); Urine Bilirubin Negative (Negative); Urine Blood Negative (Negative); Urine Color Yellow; Urine Glucose 1+(50 mg/dL) (Negative); Urine Ketones Negative (Negative); Urine Nitrite Negative (Negative); Urine Protein 1+(30 mg/dL) (Negative); Urine Red Blood Cell Absent (Absent); Urine Specific Gravity 1.026 (1.010-1.030); Urine Urobilinogen Negative (Negative); Urine White Blood Cell Absent (Absent)
[2019-05-11] MEDS ORDERED: Iohexol 300* (CONTRAST) 10 ML SDV IV ONE (23:05)
[2019-05-12] MEDS ORDERED: Al Hydrox/Mg Hydrox/Simet LIQ* 30 ML UDC PO PRN (00:14)
[2019-05-12] MEDS ORDERED: NS 0.9% 1000 ML** 1,000 ML IV ONE (00:23)
[2019-05-12] MEDS ORDERED: Vancomycin(*) 1,000 MG VIAL IVPB ONE (00:25)
[2019-05-12] MEDS ORDERED: Vancomycin per Pharmacy* NOTE FOLLOW UP PRN (00:50)
[2019-05-12] MEDS ORDERED: Etomidate* 2 MG/ML 20 ML VIAL (40 MG) ONE (00:53)
[2019-05-12] MEDS ORDERED: Succinylcholine* 20 MG/ML 10 ML VIAL ONE (00:53)
[2019-05-12] MEDS ORDERED: Propofol* 500 MG/50 ML BTL ONE (00:57)
[2019-05-12] MEDS ORDERED: Vancomycin(*) 0 MG in NS 0.9% 250 ML* 250 ML IVPB SCH (01:00)
[2019-05-12] MEDS ORDERED: Enoxaparin(*) 40 MG/0.4 ML SYR SUBCUT SCH (01:00)
[2019-05-12] MEDS ORDERED: Vancomycin(*) 1,000 MG in NS 0.9% 250 ML* 250 ML IVPB ONE (01:00)
[2019-05-12 01:04] LABS: Troponin I 0.04 ng/mL (<0.04)
[2019-05-12] MEDS: Propofol* 100 ML IV SCH ×5 (01:16→22:08)
[2019-05-12] MEDS ORDERED: Norepinephrine 16MCG/ML IVPRE* 4,000 MCG/250 ML BAG IV ONE (01:22)
--- NOTE | 2019-05-12 01:23 | ED ---
Progress - Progress Note Progress Note: This patient had already been admitted by Dr. Louis to Dr. Issa. Central line was placed in right IJ by Dr. Rodriguez with no complications. Intubation procedure: 8cm orotracheal with Succinylcholine and Etomidate with no complications. CXR showed: Central line is at the tip at the distal SVC Tip of ET tube 3.5 cm above daja no pneumothorax bilateral lower lobe pneumonia The patient has already been admitted to Dr. Issa Re-Evaluation - Re-Evaluation First Eval Re-Evaluation Time: 20:36 Change: Unchanged Comment: Respiratory rate is 25. Patient looks uncomfortable. Still tachycardic. Course/Dx - Course Course Of Treatment: This patient had already been admitted by Dr. Louis to Dr. Issa. Central line was placed in right IJ by Dr. Rodriguez with no complications. Intubation procedure: 8cm orotracheal with Succinylcholine and Etomidate with no complications. CXR showed: Central line is at the tip at the distal SVC. Tip of ET tube 3.5 cm above daja. no pneumothorax. bilateral lower lobe pneumonia. The patient has already been admitted to Dr. Issa - Diagnoses Provider Diagnoses: Severe sepsis Discharge - Sign-Out/Discharge Documenting (check all that apply): Patient Departure - admit All imaging exams completed and their final reports reviewed: Yes Patient Received Moderate/Deep Sedation with Procedure: No - Discharge Plan Condition: Critical Disposition: ADMITTED TO [facility] - Billing Disposition and Condition Condition: CRITICAL Disposition: Admitted to [facility] - Attestation Statements Document Initiated by Scribe: Yes Documenting Scribe: Joel Gale Provider For Whom Scribe is Documenting (Include Credential): Ary Rodriguez MD Scribe Attestation: Joel Causey, scribed for Ary Rodriguez MD on 05/12/19 at 0514. Scribe Documentation Reviewed: Yes Provider Attestation: The documentation as recorded by the Joel paulino accurately reflects the service I personally performed and the decisions made by , Ary Rodriguez MD Status of Scribe Document: Viewed Procedures - Procedure Summary Procedure Summary: Central line procedure: Central line was placed in right IJ with no complications. Intubation procedure: 8cm orotracheal with Succinylcholine and Etomidate with no complications.
[2019-05-12] MEDS ORDERED: Propofol* 500 MG/50 ML BTL IV SCH (02:00)
[2019-05-12] MEDS ORDERED: Norepinephrine 16MCG/ML IVPRE* 4,000 MCG/250 ML BAG IV SCH ×2 (02:00)
[2019-05-12] MEDS: NS 0.9% 1000 ML** 1,000 ML IV SCH ×4 (02:31→17:54)
[2019-05-12] MEDS: Piperacillin/Tazobac ADVAN(*) 3.375 GM in NS 0.9% 100 ML* 100 ML IVPB SCH ×3 (02:35→16:17)
--- NOTE | 2019-05-12 02:39 | HP ---
TWO ADDENDUMS ARE NOW INCLUDED ON THIS REPORT CC: Dr. Vann * HISTORY AND PHYSICAL: DATE OF ADMISSION: 05/11/19 TIME OF ADMISSION: 11:30 p.m. CHIEF COMPLAINT: Hypoxia at [facility]. HISTORY OF PRESENT ILLNESS: This is a 73-year-old man with history of dementia who presents to the emergency department from [facility], where he was found to be hypoxic today. He was recently admitted to [facility] from 05/01/19 to 05/07/19 with severe sepsis and pneumonia and had completed his course of antibiotics, when he was found to be hypoxic to the 80s at [facility] today. I have no other report from [facility] about what has been happening since he has been there. Mr. García is unable to provide any history due to dementia. I did speak with his daughter, Jory, who unfortunately has not seen him since he left the hospital. Mr. García said he is doing "fine." The reason he believes he is here is because he "lost the astudillo with..." He is unable to elaborate any further. PAST MEDICAL HISTORY: Dementia, hypertension, and protein-calorie malnutrition. PAST SURGICAL HISTORY: Carotid endarterectomy, hernia repair, lumbar disk surgery, and a peripheral stent. FAMILY HISTORY: This is taken from the chart as he is unable to obtain. His mother had emphysema, his brother had Alzheimer dementia, and his daughter has non- Hodgkin lymphoma. SOCIAL HISTORY: He is ; he quit smoking 10 years ago. He smoked 2 packs a day for 50 years. He has a history of heavy alcohol use and quit drinking alcohol in 2007. His healthcare proxy is his ; however, the daughter Jory helps her make decisions. REVIEW OF SYSTEMS: Unable to be obtained due to dementia. PHYSICAL EXAMINATION GENERAL: This is an alert, elderly, ill-appearing man who is in no distress, but is tachypneic. He does not appear uncomfortable. He acknowledges me when I enter the room with eye contact; however, does not say anything. VITAL SIGNS: Temperature is 98.4, heart rate 121, respiratory rate 31, pulse ox 100% on Vapotherm at 40 L and 50% FiO2, blood pressure 172/110. HEENT: Pupils 3 mm bilaterally and reactive to light. Oral mucosa is extremely dry. NECK: No JVP or adenopathy. CHEST: Tachycardic. His lungs are clear bilaterally. ABDOMEN: His abdomen is tense, firm, and he grimaces to deep palpation. His bowel sounds are hypoactive. He has no CVA tenderness. A Farrell catheter is in place and draining brown urine. EXTREMITIES: No edema, rashes, or ulcers. NEUROLOGIC: He does not follow most of my commands, even simple commands like holding his eyes or sticking his tongue out. He is able, however, to lift both of his legs and keep them elevated and also squeeze my hands with both of his upper extremities. DIAGNOSTIC STUDIES/LAB DATA: Laboratory Data: White blood cells 32.8, hemoglobin 12.5, platelets 527. INR of 1.20. Blood gas 7.41/27/83. Sodium 135 , potassium 3.9, chloride 99, bicarb 19, BUN 36, creatinine 1.12, glucose 165, lactic acid 4.8. Troponin 0.05. CRP 277.03. Urinalysis shows +1 protein and hyaline casts; otherwise, is unremarkable. Imaging: Chest x-ray to my read shows no infiltrates or effusions. ASSESSMENT AND PLAN: This is a 73-year-old male with history of dementia and a recent hospitalization who presents to the emergency department with hypoxia and found to have severe sepsis. 1. Severe sepsis with an unclear source. He does not have an impressive chest x- ray; however, he grimaces to pain when I press on his abdomen and has an elevated lactic acid, reason for concern for an intra-abdominal source. I am getting a stat CT abdomen and pelvis with contrast to rule out an intra- abdominal abscess or other infectious pathology. I am also adding a C. diff given the degree of leukocytosis. He has received the sepsis protocol for IV fluids; however, he needs more fluid resuscitation. I am giving him 2 more liters now. He received levofloxacin and Zosyn in the emergency department, which should cover intra-abdominal pathology. I will wait to see what the CT abdomen and pelvis shows to decide which antibiotics to continue. He will need broad-spectrum antibiotic coverage. Blood cultures have been sent and his urinalysis is unremarkable. He does not have nuchal rigidity concerning for a central nervous system source. The differential also includes ischemic bowels. 2. Anion gap metabolic acidosis. I suspect this is related to lactic acidosis. He needs more volume resuscitation and I will repeat his lactic acid in 4 hours. 3. Acute hypoxic respiratory failure. He is oxygenating well on Vapotherm and I suspect that the primary pathology is actually a metabolic acidosis with respiratory compensation; hence, his low pCO2. I am keeping him on Vapotherm for now. I do not believe he would tolerate BiPAP and I have discussed possible intubation with his family given his tachypnea and they would agree to intubation should it be necessary. 4. Thrombocytosis. I suspect this is an acute phase reaction. 5. Dementia. I would continue home memantine and donepezil, though I question the efficacy of these at this point. 6. DVT prophylaxis. Subcutaneous heparin. 7. Disposition. Hold off on admission until CT abdomen and pelvis comes back to rule out an acute intervention that needs to be performed. He has a very guarded prognosis and I have shared this with his daughters. They wish to keep him full code and we will respect this. He may have ICU level of care. ADDENDUM NO.1: DIAGNOSTIC STUDIES/LAB DATA: Update. Mr. García's CT abdomen and pelvis returned and the radiologist's report is as follows: 1. Prominent atherosclerotic calcification including branch vasculature stenosis of the SMA, renal arteries, and is arteries are suspected. 2. Bibasilar interstitial prominence with minimal patchy bibasilar infiltrates. There is moderate right lower lobe infiltrate, atelectasis, or consolidation with bronchial plugging. 3. Farrell catheter in the bladder. 4. Borderline gastric distention with fluid and food material, which may reflect recent ingestion. Gastric atony or relative outlet obstruction is not excluded. Suggestion of gastric emphysema in the fundus. Emphysematous gastritis is not included. 5. Fluid throughout the colon to the rectum consistent with diarrhea. There is also fluid throughout the small-bowel segments, which may reflect enteritis, which may be of infectious origin. Ischemic enteritis is not included. Since I initially came to see him, he received 2 more liters of IV fluids; however, his respiratory rate remains in the 40s to 50s. A repeat lactic acid was 4.3 from 4.8. I have spoken with his daughter and his again and confirmed that he would want to be intubated and we are proceeding with intubation at this time. My concern remains high for an abdominal source of his infection/sepsis and I am keeping him on broad-spectrum antibiotics including Zosyn and vancomycin. A pulmonary source is also on the differential given the findings from the CT of his lung bases. I have also spoken with his about whether he has been having diarrhea and she believes that he has been having diarrhea for the past 4 days. We will check an ABG an hour after he has been on the ventilator as I remain concerned about his ability to compensate for the metabolic acidosis if we slow down his respiratory rate. His prognosis remains extremely guarded. ADDENDUM NO.2: A repeat chest x-ray after IV fluid resuscitation does show concern for pneumonia and dark brown thick sputum has been suctioned from his ET tube, thus broadening the differential of severe sepsis to include hospital-acquired pneumonia. We will continue with vancomycin and Zosyn and add sputum cultures. [id number]/[facility] #: [id number]/CPS #: [id number]/CPS #: [id number] [facility]
--- NOTE | 2019-05-12 02:46 | HP ---
HISTORY AND PHYSICAL: ADDENDUM: DIAGNOSTIC STUDIES/LAB DATA: Update. Mr. García's CT abdomen and pelvis returned and the radiologist's report is as follows: 1. Prominent atherosclerotic calcification including branch vasculature stenosis of the SMA, renal arteries, and is arteries are suspected. 2. Bibasilar interstitial prominence with minimal patchy bibasilar infiltrates. There is moderate right lower lobe infiltrate, atelectasis, or consolidation with bronchial plugging. 3. Farrell catheter in the bladder. 4. Borderline gastric distention with fluid and food material, which may reflect recent ingestion. Gastric atony or relative outlet obstruction is not excluded. Suggestion of gastric emphysema in the fundus. Emphysematous gastritis is not included. 5. Fluid throughout the colon to the rectum consistent with diarrhea. There is also fluid throughout the small-bowel segments, which may reflect enteritis, which may be of infectious origin. Ischemic enteritis is not included. Since I initially came to see him, he received 2 more liters of IV fluids; however, his respiratory rate remains in the 40s to 50s. A repeat lactic acid was 4.3 from 4.8. I have spoken with his daughter and his again and confirmed that he would want to be intubated and we are proceeding with intubation at this time. My concern remains high for an abdominal source of his infection/sepsis and I am keeping him on broad-spectrum antibiotics including Zosyn and vancomycin. A pulmonary source is also on the differential given the findings from the CT of his lung bases. I have also spoken with his about whether he has been having diarrhea and she believes that he has been having diarrhea for the past 4 days. We will check an ABG an hour after he has been on the ventilator as I remain concerned about his ability to compensate for the metabolic acidosis if we slow down his respiratory rate. His prognosis remains extremely guarded. [id number]/[facility] #: [id number] [facility]
[2019-05-12] MEDS: Chlorhexidine MOUTHWASH 0.12%* 15 ML UDC TOPICAL SCH ×5 (04:42→21:15)
[2019-05-12] MEDS: Heparin VIAL(*) 5000 UNITS/ML VIAL (FIVE THOUSAND) SUBCUT SCH ×3 (06:08→21:15)
[2019-05-12 06:22] LABS: Hematocrit 28 % (42-52); Hemoglobin 9.1 g/dL (14.0-18.0); Mean Corpuscular HGB Conc 33 g/dL (31-36); Mean Corpuscular Hemoglobin 32 pg (27-31); Mean Corpuscular Volume 98 fL (80-94); Mean Platelet Volume 7.6 fL (7.4-10.4); Platelet Count 402 10^3/uL (150-450); Red Blood Count 2.83 10^6 /uL (4.18-5.48); Red Cell Distribution Width 14 % (10-15); White Blood Count 13.3 10^3/uL (3.5-10.8)
[2019-05-12 06:43] LABS: ALT 28 U/L (7-52); AST 26 U/L (13-39); Albumin 2.3 g/dL (3.2-5.2); Alkaline Phosphatase 124 U/L (34-104); Blood Urea Nitrogen 21 mg/dL (6-24); CO2 Carbon Dioxide 15 mmol/L (22-32); Calcium 7.7 mg/dL (8.6-10.3); EGFR African American 198.3 (>60); EGFR Non-African American 163.9 (>60); Globulin 2.2 g/dL (2-4); Glucose 130 mg/dL (70-100); INR 1.48 (0.82-1.09); Potassium 3.5 mmol/L (3.5-5.0); Sodium 140 mmol/L (135-145); Total Protein 4.5 g/dL (6.4-8.9); Troponin I 0.02 ng/mL (<0.04)
[2019-05-12 06:51] LABS: ABS Lymphocytes 0.3 10^3/ul (1.0-4.8); ABS Monocytes 0.3 10^3/ul (0-0.8); ABS Neutrophils 12.7 10^3/ul (1.5-7.7); Eosinophil % 0.1 %; Lymphocyte % 2.2 %
[2019-05-12 06:55] LABS: Anion Gap 10 mmol/L (2-11); Chloride 115 mmol/L (101-111)
[2019-05-12] MEDS ORDERED: Norepinephrine VIAL* 1 MG/ML 4 ML VIAL ONE (07:19)
[2019-05-12] MEDS: Memantine TAB* 10 MG PO SCH ×2 (07:57→21:15)
[2019-05-12] MEDS: guaiFENesin LIQ* 100 MG/5 ML UDC PO SCH ×3 (07:57→21:15)
[2019-05-12] MEDS: Vitamin E CAP* 400 UNIT PO SCH (07:57)
[2019-05-12] MEDS: Pantoprazole TAB * 40 MG TAB PO SCH (07:57)
[2019-05-12] MEDS ORDERED: Norepinephrine VIAL* 4 MG in NS 0.9% 250 ML* 250 ML IV SCH (08:00)
--- NOTE | 2019-05-12 08:37 | HP ---
HISTORY AND PHYSICAL: ADDENDUM: A repeat chest x-ray after IV fluid resuscitation does show concern for pneumonia and dark brown thick sputum has been suctioned from his ET tube, thus broadening the differential of severe sepsis to include hospital-acquired pneumonia. We will continue with vancomycin and Zosyn and add sputum cultures. [id number]/[facility] #: [id number] [facility]
[2019-05-12 09:18] LABS: Amylase 56 U/L (29-103)
[2019-05-12] MEDS: Aspirin TAB* 325 MG PO SCH (11:46)
[2019-05-12] MEDS ORDERED: Norepinephrine VIAL* 8 MG in NS 0.9% 500 ML* 492 ML IV SCH ×2 (15:00)
[2019-05-12] MEDS: Norepinephrine VIAL* 8 MG in NS 0.9% 500 ML* 492 ML IV SCH (15:58)
[2019-05-12] MEDS: Vancomycin(*) 750 MG in NS 0.9% 250 ML* 250 ML IVPB SCH (16:17)
--- NOTE | 2019-05-12 16:18 | PN ---
Date of Service: 05/12/19 Critical Care Services: Seems comfortable on the ventilator and is improving on empiric antibiotic Rx. Lactate down from 4.3 to 2.8. Vital Signs: Temp Pulse Resp BP SpO2 FiO2 99.0 F 112 26 93/69 99 50 Physical Exam: Gen:Unresponsive (on propofol) Lungs: Clear Cardiac: Regular Rhythm Abdomen: Sopft - not distended Extremities: No cyanosis or edema Fluid Balance (Past 24 Hours): 05/12/19 06:59 Intake Total 3534 Output Total 1880 Balance 1654 Weight 116 lb Intake: IV Fluids 2894 NS 894 IVPB 370 ABX 370 Medicated IV 270 Levophed 176 Propofol 94 Oral Output: NG Tube Drainage Amount Farrell 1880 Other: Estimated Void Large Labs: Laboratory Results - last 24 hr 05/11/19 05/11/19 05/11/19 20:06 20:06 20:06 WBC 32.8 H RBC 3.87 L Hgb 12.5 L Hct 38 L MCV 97 H MCH 32 H MCHC 33 RDW 14 Plt Count 527 H D MPV 7.7 Neut % (Auto) 95.3 Lymph % (Auto) 1.3 Garden % (Auto) 3.3 Eos % (Auto) 0.0 Baso % (Auto) 0.1 Absolute Neuts (auto) 31.3 H Absolute Lymphs (auto) 0.4 L Absolute Monos (auto) 1.1 H Absolute Eos (auto) 0.0 Absolute Basos (auto) 0.0 Absolute Nucleated RBC 0.0 Nucleated RBC % 0.1 INR (Anticoag Therapy) 1.20 H APTT 30.0 Patient Temperature ABG pH ABG pH (Temp Correct) ABG pCO2 ABG pCO2 (Temp Corrct ABG pO2 ABG pO2 (Temp Correct ABG HCO3 ABG O2 Saturation ABG Base Excess Respiration Rate O2 Delivery Device Ventilator Type Vent Mode FiO2 Inspiratory Time PEEP Pressure Support Pressure Control EPAP IPAP BiPAP Sodium 135 Potassium 3.9 Chloride 99 L Carbon Dioxide 19 L Anion Gap 17 H BUN 36 H Creatinine 1.12 Est GFR ( Amer) 78.2 Est GFR (Non-Af Amer) 64.6 BUN/Creatinine Ratio 32.1 H Glucose 165 H Lactic Acid Calcium 10.9 H Total Bilirubin 0.50 AST 25 ALT 35 Alkaline Phosphatase 110 H Troponin I 0.05 H* C-Reactive Protein 277.03 H B-Natriuretic Peptide Total Protein 7.6 Albumin 3.8 Globulin 3.8 Albumin/Globulin Ratio 1.0 Amylase Lipase Urine Color Urine Appearance Urine pH Ur Specific Rover Urine Protein Urine Ketones Urine Blood Urine Nitrate Urine Bilirubin Urine Urobilinogen Ur Leukocyte Esterase Urine WBC (Auto) Urine RBC (Auto) Urine Bacteria Hyaline Casts Urine Glucose 05/11/19 05/11/19 05/11/19 20:06 20:06 20:15 WBC RBC Hgb Hct MCV MCH MCHC RDW Plt Count MPV Neut % (Auto) Lymph % (Auto) Garden % (Auto) Eos % (Auto) Baso % (Auto) Absolute Neuts (auto) Absolute Lymphs (auto) Absolute Monos (auto) Absolute Eos (auto) Absolute Basos (auto) Absolute Nucleated RBC Nucleated RBC % INR (Anticoag Therapy) APTT Patient Temperature Not Reportable ABG pH 7.41 ABG pH (Temp Correct) Not Reportable ABG pCO2 27 L ABG pCO2 (Temp Corrct Not Reportable ABG pO2 83 ABG pO2 (Temp Correct Not Reportable ABG HCO3 20.2 ABG O2 Saturation 98.2 H ABG Base Excess -6.0 L Respiration Rate Not Reportable O2 Delivery Device vapo Ventilator Type Not Reportable Vent Mode Not Reportable FiO2 50 Inspiratory Time Not Reportable PEEP Not Reportable Pressure Support Not Reportable Pressure Control Not Reportable EPAP Not Reportable IPAP Not Reportable BiPAP Not Reportable Sodium Potassium Chloride Carbon Dioxide Anion Gap BUN Creatinine Est GFR ( Amer) Est GFR (Non-Af Amer) BUN/Creatinine Ratio Glucose Lactic Acid 4.8 H* Calcium Total Bilirubin AST ALT Alkaline Phosphatase Troponin I C-Reactive Protein B-Natriuretic Peptide 235 H Total Protein Albumin Globulin Albumin/Globulin Ratio Amylase Lipase Urine Color Urine Appearance Urine pH Ur Specific Rover Urine Protein Urine Ketones Urine Blood Urine Nitrate Urine Bilirubin Urine Urobilinogen Ur Leukocyte Esterase Urine WBC (Auto) Urine RBC (Auto) Urine Bacteria Hyaline Casts Urine Glucose 05/11/19 05/12/19 05/12/19 22:30 00:00 00:34 WBC RBC Hgb Hct MCV MCH MCHC RDW Plt Count MPV Neut % (Auto) Lymph % (Auto) Garden % (Auto) Eos % (Auto) Baso % (Auto) Absolute Neuts (auto) Absolute Lymphs (auto) Absolute Monos (auto) Absolute Eos (auto) Absolute Basos (auto) Absolute Nucleated RBC Nucleated RBC % INR (Anticoag Therapy) APTT Patient Temperature ABG pH ABG pH (Temp Correct) ABG pCO2 ABG pCO2 (Temp Corrct ABG pO2 ABG pO2 (Temp Correct ABG HCO3 ABG O2 Saturation ABG Base Excess Respiration Rate O2 Delivery Device Ventilator Type Vent Mode FiO2 Inspiratory Time PEEP Pressure Support Pressure Control EPAP IPAP BiPAP Sodium Potassium Chloride Carbon Dioxide Anion Gap BUN Creatinine Est GFR ( Amer) Est GFR (Non-Af Amer) BUN/Creatinine Ratio Glucose Lactic Acid 4.3 H* 3.1 H* Calcium Total Bilirubin AST ALT Alkaline Phosphatase Troponin I C-Reactive Protein B-Natriuretic Peptide Total Protein Albumin Globulin Albumin/Globulin Ratio Amylase Lipase Urine Color Yellow Urine Appearance Cloudy Urine pH 5.0 Ur Specific Rover 1.026 Urine Protein 1+(30 mg/dl) A Urine Ketones Negative Urine Blood Negative Urine Nitrate Negative Urine Bilirubin Negative Urine Urobilinogen Negative Ur Leukocyte Esterase Negative Urine WBC (Auto) Absent Urine RBC (Auto) Absent Urine Bacteria Absent Hyaline Casts Present A Urine Glucose 1+(50 mg/dl) A 05/12/19 05/12/19 05/12/19 00:34 02:15 06:00 WBC RBC Hgb Hct MCV MCH MCHC RDW Plt Count MPV Neut % (Auto) Lymph % (Auto) Garden % (Auto) Eos % (Auto) Baso % (Auto) Absolute Neuts (auto) Absolute Lymphs (auto) Absolute Monos (auto) Absolute Eos (auto) Absolute Basos (auto) Absolute Nucleated RBC Nucleated RBC % INR (Anticoag Therapy) APTT ABG pH 7.28 L ABG pCO2 32 L ABG pO2 187 H ABG HCO3 16.7 L ABG O2 Saturation 99.8 H ABG Base Excess -10.6 L Respiration Rate 12 O2 Delivery Device vent Ventilator Type 500 FiO2 60 PEEP 5 Sodium 140 Potassium 3.5 Chloride 115 H Carbon Dioxide 15 L Anion Gap 10 BUN 21 Creatinine 0.50 L Est GFR ( Amer) 198.3 Est GFR (Non-Af Amer) 163.9 BUN/Creatinine Ratio 42.0 H Glucose 130 H Lactic Acid Calcium 7.7 L Total Bilirubin 0.60 AST 26 ALT 28 Alkaline Phosphatase 124 H Troponin I 0.04 H* 0.02 C-Reactive Protein B-Natriuretic Peptide Total Protein 4.5 L Albumin 2.3 L Globulin 2.2 Albumin/Globulin Ratio 1.0 Amylase 56 Lipase < 10 L Urine Color Urine Appearance Urine pH Ur Specific Rover Urine Protein Urine Ketones Urine Blood Urine Nitrate Urine Bilirubin Urine Urobilinogen Ur Leukocyte Esterase Urine WBC (Auto) Urine RBC (Auto) Urine Bacteria Hyaline Casts Urine Glucose 05/12/19 05/12/19 05/12/19 06:00 06:00 06:00 WBC 13.3 H RBC 2.83 L Hgb 9.1 L Hct 28 L MCV 98 H MCH 32 H MCHC 33 RDW 14 Plt Count 402 MPV 7.6 Neut % (Auto) 95.0 Lymph % (Auto) 2.2 Garden % (Auto) 2.5 Eos % (Auto) 0.1 Baso % (Auto) 0.2 Absolute Neuts (auto) 12.7 H Absolute Lymphs (auto) 0.3 L Absolute Monos (auto) 0.3 Absolute Eos (auto) 0.0 Absolute Basos (auto) 0.0 Absolute Nucleated RBC 0.0 Nucleated RBC % 0.0 INR (Anticoag Therapy) 1.48 H APTT Patient Temperature ABG pH ABG pH (Temp Correct) ABG pCO2 ABG pCO2 (Temp Corrct ABG pO2 ABG pO2 (Temp Correct ABG HCO3 ABG O2 Saturation ABG Base Excess Respiration Rate O2 Delivery Device Ventilator Type Vent Mode FiO2 Inspiratory Time PEEP Pressure Support Pressure Control EPAP IPAP BiPAP Sodium Potassium Chloride Carbon Dioxide Anion Gap BUN Creatinine Est GFR ( Amer) Est GFR (Non-Af Amer) BUN/Creatinine Ratio Glucose Lactic Acid 2.8 H* Calcium Total Bilirubin AST ALT Alkaline Phosphatase Troponin I C-Reactive Protein B-Natriuretic Peptide Total Protein Albumin Globulin Albumin/Globulin Ratio Amylase Lipase Urine Color Urine Appearance Urine pH Ur Specific Rover Urine Protein Urine Ketones Urine Blood Urine Nitrate Urine Bilirubin Urine Urobilinogen Ur Leukocyte Esterase Urine WBC (Auto) Urine RBC (Auto) Urine Bacteria Hyaline Casts Urine Glucose Studies: None since admission Nutrition: NPO Impression: Working Dx is sepsis of bowel origin. No evidence of bowel ischemia or pancreatitis at this time. Plan: Continue fluids and antibiotics and follow lactates. Multiple cultures pending. Critical Care Time: 45 minutes
[2019-05-12] MEDS: Donepezil TAB* 5 MG PO SCH (21:15)
[2019-05-13] MEDS: Chlorhexidine MOUTHWASH 0.12%* 15 ML UDC TOPICAL SCH ×6 (00:04→20:09)
[2019-05-13] MEDS: NS 0.9% 1000 ML** 1,000 ML IV SCH ×3 (00:06→16:36)
[2019-05-13] MEDS: Piperacillin/Tazobac ADVAN(*) 3.375 GM in NS 0.9% 100 ML* 100 ML IVPB SCH ×3 (01:06→16:36)
[2019-05-13] MEDS: Norepinephrine VIAL* 8 MG in NS 0.9% 500 ML* 492 ML IV SCH ×3 (01:08→16:36)
[2019-05-13] MEDS: Propofol* 100 ML IV SCH ×3 (03:26→17:29)
[2019-05-13] MEDS: Vancomycin(*) 750 MG in NS 0.9% 250 ML* 250 ML IVPB SCH ×2 (03:26→13:50)
[2019-05-13] MEDS: Heparin VIAL(*) 5000 UNITS/ML VIAL (FIVE THOUSAND) SUBCUT SCH ×3 (05:52→21:48)
[2019-05-13 06:03] LABS: Hematocrit 24 % (42-52); Hemoglobin 7.9 g/dL (14.0-18.0); Mean Corpuscular HGB Conc 33 g/dL (31-36); Mean Corpuscular Hemoglobin 33 pg (27-31); Mean Corpuscular Volume 99 fL (80-94); Mean Platelet Volume 8.3 fL (7.4-10.4); Platelet Count 334 10^3/uL (150-450); Red Cell Distribution Width 15 % (10-15)
[2019-05-13 06:22] LABS: BUN/Creatinine Ratio 31.5 (8-20); Calcium 7.3 mg/dL (8.6-10.3); EGFR African American 98.1 (>60); EGFR Non-African American 81.1 (>60); Potassium 3.5 mmol/L (3.5-5.0)
[2019-05-13] MEDS: Pantoprazole TAB * 40 MG TAB PO SCH (09:17)
[2019-05-13] MEDS: guaiFENesin LIQ* 100 MG/5 ML UDC PO SCH ×3 (09:17→20:09)
[2019-05-13] MEDS: Vitamin E CAP* 400 UNIT PO SCH (09:17)
[2019-05-13] MEDS: Aspirin TAB* 325 MG PO SCH (09:17)
[2019-05-13] MEDS: Memantine TAB* 10 MG PO SCH ×2 (09:17→20:10)
[2019-05-13] MEDS ORDERED: Lactated Ringers 1000 ML Bag* 1,000 ML IV ONE (10:00)
[2019-05-13] MEDS ORDERED: KCL 20 MEQ/100 ML IVPREMIX* 100 ML BAG IV ONE (10:00)
--- NOTE | 2019-05-13 10:24 | PN ---
Date of Service: 05/13/19 Critical Care Services: failed PST this AM 2/2 increased RR improved UOP and lactates decrease in H/H overnight. NGT 300 cc output. Negative c.difficile Vital Signs: Temp Pulse Resp BP SpO2 FiO2 97.5 F 96 21 121/64 99 45 05/13/19 10:00 05/13/19 10:00 05/13/19 05:48 05/13/19 10:00 05/13/19 10:00 05/13 08:00 Physical Exam: Gen:intubated. sedated. moving all extremities : Lungs: decreased BS's Cardiac: RRR Abdomen: soft, ntp. No rebound or guarding.+BS's Extremities: No CORRIE Fluid Balance (Past 24 Hours): I= O= Net Intake & Output 05/11/19 05/12/19 05/13/19 05/14/19 06:59 06:59 06:59 06:59 Intake Total 3534 7771 Output Total 1880 1735 320 Balance 1654 6036 -320 Weight 116 lb 6.465 oz 123 lb 14.397 oz Intake: IV Fluids 2894 5322 ABX 732 NS 894 4590 IVPB 370 15 ABX 370 15 Medicated IV 270 2014 Levophed 176 1389 Propofol 94 625 Oral 360 Tube Feeding Flush Amount 60 Output: NG Tube Drainage Amount 500 Farrell 1880 1235 320 Other: Estimated Void Large AD Labs: Laboratory Results - last 24 hr 05/13/19 05/13/19 05/13/19 05:10 05:10 05:10 WBC 13.0 H RBC 2.40 L Hgb 7.9 L Hct 24 L MCV 99 H MCH 33 H MCHC 33 RDW 15 Plt Count 334 MPV 8.3 Sodium 143 Potassium 3.5 Chloride 120 H Carbon Dioxide 16 L Anion Gap 7 BUN 29 H Creatinine 0.92 Est GFR ( Amer) 98.1 Est GFR (Non-Af Amer) 81.1 BUN/Creatinine Ratio 31.5 H Glucose 86 Lactic Acid 1.7 Calcium 7.3 L Impression: ARF on MV metabolic acidosis with high Cl anemia hypokalemia Plan: continue ventilator support change to LR and continue to hydrate decrease Propofol continue empiric ABX --Vanco and zosyn no need for transfusions. most likely anemia 2/2 dilution continue to f/u abdominal exams wean to extubate 05/14/19? Critical Care Time: 45
[2019-05-13] MEDS ORDERED: Vancomycin Trough Check NOTE FOLLOW UP ONE (13:30)
[2019-05-13] MEDS: Donepezil TAB* 5 MG PO SCH (20:10)
[2019-05-13] MEDS: Lactated Ringers 1000 ML Bag* 1,000 ML IV SCH (23:00)
[2019-05-14] MEDS: Piperacillin/Tazobac ADVAN(*) 3.375 GM in NS 0.9% 100 ML* 100 ML IVPB SCH ×3 (01:28→18:23)
[2019-05-14] MEDS: Chlorhexidine MOUTHWASH 0.12%* 15 ML UDC TOPICAL SCH ×5 (01:28→18:24)
[2019-05-14] MEDS: Vancomycin(*) 1,250 MG in NS 0.9% 250 ML* 250 ML IVPB SCH ×2 (01:35→14:54)
[2019-05-14] MEDS: Propofol* 100 ML IV SCH (04:48)
[2019-05-14] MEDS: Norepinephrine VIAL* 8 MG in NS 0.9% 500 ML* 492 ML IV SCH ×3 (05:11→18:23)
[2019-05-14 05:16] LABS: Hematocrit 22 % (42-52); Hemoglobin 7.1 g/dL (14.0-18.0); Mean Corpuscular HGB Conc 33 g/dL (31-36); Mean Corpuscular Hemoglobin 32 pg (27-31); Mean Corpuscular Volume 98 fL (80-94); Platelet Count 311 10^3/uL (150-450); Red Cell Distribution Width 14 % (10-15); White Blood Count 17.6 10^3/uL (3.5-10.8)
[2019-05-14 05:28] LABS: BUN/Creatinine Ratio 28.4 (8-20); Calcium 7.5 mg/dL (8.6-10.3); EGFR African American 113.7 (>60); EGFR Non-African American 93.9 (>60)
[2019-05-14] MEDS: Heparin VIAL(*) 5000 UNITS/ML VIAL (FIVE THOUSAND) SUBCUT SCH ×2 (06:14→13:01)
[2019-05-14] MEDS ORDERED: NS 0.9% 100 ML* 100 ML ONE (08:19)
[2019-05-14] MEDS: Pantoprazole TAB * 40 MG TAB PO SCH (08:25)
[2019-05-14] MEDS: Vitamin E CAP* 400 UNIT PO SCH (08:25)
[2019-05-14] MEDS: Memantine TAB* 10 MG PO SCH (08:25)
[2019-05-14] MEDS: Aspirin TAB* 325 MG PO SCH (08:25)
[2019-05-14] MEDS: guaiFENesin LIQ* 100 MG/5 ML UDC PO SCH ×2 (08:32→12:59)
[2019-05-14] MEDS: Lactated Ringers 1000 ML Bag* 1,000 ML IV SCH (08:33)
--- NOTE | 2019-05-14 09:28 | PN ---
Date of Service: 05/14/19 Critical Care Services: ABG's improved though worse R sided opacity on CXR Off Levophed. Weaning off Propofol. WBC decreasing. AF. VSS. Drop in H/H overnight. No evidence of active bleeding. Vital Signs: Temp Pulse Resp BP SpO2 FiO2 98.1 F 81 25 107/53 97 30 05/14/19 07:30 05/14/19 09:00 05/14/19 09:00 05/14/19 09:00 05/14/19 09:00 05/14 08:00 Physical Exam: Gen:intubated. sedated Lungs: decreased BS's Cardiac: RRR Abdomen: +BS's, Soft, NTP. No rebound or guarding. Extremities: No CORRIE. Neuro: Fluid Balance (Past 24 Hours): I= O= Net Intake & Output 05/12/19 05/13/19 05/14/19 05/15/19 06:59 06:59 06:59 06:59 Intake Total 3534 7771 5216.8 Output Total 1880 1735 2510 145 Balance 1654 6036 2706.8 -145 Weight 116 lb 6.465 oz 123 lb 14.397 oz 134 lb 14.766 oz Intake: IV Fluids 2894 5322 1802 ABX 732 LR 728 NS 894 4590 1074 IVPB 643 05 6529 ABX 370 15 890 LR 1000 NS 894 Medicated IV 270 2014 630.8 Levophed 176 1389 455 Propofol 94 625 175.8 Oral 360 Tube Feeding Flush Amount 60 Output: NG Tube Drainage Amount 500 Farrell 1880 1235 1710 145 Liquid Stool 800 Other: Estimated Void Large Labs: Laboratory Results - last 24 hr 05/13/19 05/14/19 05/14/19 11:50 05:00 05:00 WBC 17.6 H RBC 2.20 L Hgb 7.1 L Hct 22 L MCV 98 H MCH 32 H MCHC 33 RDW 14 Plt Count 311 MPV 8.0 Patient Temperature ABG pH ABG pH (Temp Correct) ABG pCO2 ABG pCO2 (Temp Corrct ABG pO2 ABG pO2 (Temp Correct ABG HCO3 ABG O2 Saturation ABG Base Excess Respiration Rate O2 Delivery Device Ventilator Type Vent Mode FiO2 Inspiratory Time PEEP Pressure Support Pressure Control EPAP IPAP BiPAP Sodium 145 Potassium 3.0 L Chloride 122 H Carbon Dioxide 16 L Anion Gap 7 BUN 23 Creatinine 0.81 Est GFR ( Amer) 113.7 Est GFR (Non-Af Amer) 93.9 BUN/Creatinine Ratio 28.4 H Glucose 89 Lactic Acid Calcium 7.5 L Vancomycin Trough 11.5 05/14/19 05/14/19 05/14/19 05:00 05:32 06:03 WBC RBC Hgb Hct MCV MCH MCHC RDW Plt Count MPV Patient Temperature Cancelled ABG pH Cancelled 7.36 ABG pH (Temp Correct) Cancelled ABG pCO2 Cancelled 23 L ABG pCO2 (Temp Corrct Cancelled ABG pO2 Cancelled 100 ABG pO2 (Temp Correct Cancelled ABG HCO3 Cancelled 16.8 L ABG O2 Saturation Cancelled 99.5 H ABG Base Excess Cancelled -10.4 L Respiration Rate Cancelled O2 Delivery Device Cancelled Ventilator Type Cancelled Vent Mode Cancelled FiO2 Cancelled Inspiratory Time Cancelled PEEP Cancelled Pressure Support Cancelled Pressure Control Cancelled EPAP Cancelled IPAP Cancelled BiPAP Cancelled Sodium Potassium Chloride Carbon Dioxide Anion Gap BUN Creatinine Est GFR ( Amer) Est GFR (Non-Af Amer) BUN/Creatinine Ratio Glucose Lactic Acid 1.1 Calcium Vancomycin Trough Impression: ARF on MV PNA anemia unclear etiology severe dementia hypokalemia and hypocalcemia metabolic acidosis with high CL Plan: PST in the AM continue empiric ABX. F/U Vanco levels. All CX's NGTD Rx for PNA replenish K and Calcium continue LR and monitor high Cl levels f/u Hg. Check iron levels. No evidence of active bleeding. Continue though IV PPI and hold ASA. Remains on SQH. Transfuse if <7.0 Hg. Had long d/w family at the bedside. Proxy, the , was also in attendance. Family would like patient to be DNR. They are also considering comfort measures but want to wait several more days to see if he "turns around." With the patient's severe dementia they state he had a very poor QOL and would not want such aggressive measures. Critical Care Time: 71 minutes
[2019-05-14] MEDS ORDERED: Calcium Gluconate INJ* 1 GM in NS 0.9% 50 ML* 50 ML IVPB ONE (09:37)
[2019-05-14] MEDS ORDERED: Pantoprazole IV* 40 MG IV SCH (10:00)
[2019-05-14] MEDS: KCL 10 MEQ/50 ML IVPREMIX* 10 MEQ/50 ML BAG IV SCH ×2 (10:26→12:59)
[2019-05-14] MEDS ORDERED: Morphine 4 MG/ML VIAL (1 ml) 4 MG/ML VIAL ONE (18:05)
[2019-05-14] MEDS ORDERED: LORazepam INJ* 2 MG/ML 1 ML VIAL IV PUSH PRN (18:14)
[2019-05-14] MEDS ORDERED: Lorazepam PYXIS KEY PRN (18:14)
[2019-05-14] MEDS: Morphine 4 MG/ML VIAL (1 ml) 4 MG/ML VIAL IV PRN (22:40)
[2019-05-15 00:35] VITALS: BP 134/71
[2019-05-15] MEDS: Morphine 4 MG/ML VIAL (1 ml) 4 MG/ML VIAL IV PRN ×3 (08:54→10:54)
[2019-05-15] MEDS ORDERED: Morphine PCA ADULT* 5 MG/ML 30 ML PCA SCH (10:00)
--- NOTE | 2019-05-15 11:52 | PN ---
Hospitalist Progress Note Date of Service: 05/15/19 Note: Patient seen and examined at 0930, respirations labored, patient obtunded and unresponsive. RR >40. 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 Family at bedside, counseled that is imminent. Called to bedside by RN that respirations have ceased and that patient is asystole on monitor. No spontaneous respirations noted, pupils fixed and dilated. Time of 1113. Emotional support provided to family. Nursing at bedside.
[2019-05-15] MEDS ORDERED: Vancomycin Trough Check NOTE FOLLOW UP ONE (14:00)
--- NOTE | 2019-05-15 19:07 | DS ---
AMENDED REPORT NOW INCLUDES DESIGNATED COSIGNER CC: Attending at [facility] * DISCHARGE SUMMARY: DATE OF ADMISSION: 05/12/19 DATE OF DISCHARGE AND EXPIRATION: 05/15/19 PRIMARY CARE PROVIDER: Attending at [facility]. MY ATTENDING: Dr. Lashanda Vera.* (DICTATED BY JACQUELINE PINEDA NP) HOSPITAL COURSE: Please refer to admitting H and P on 05/12/19, but in short, Mr. García is a 73-year-old gentleman with history of dementia, who is a resident at [facility], who was found to be hypoxic. He had had a recent admission earlier in April, then was discharged on 05/07/19 with severe sepsis and pneumonia. He had been on antibiotics, but was found to have some persistent hypoxia. He was sent to the emergency department for additional evaluation. He was found to be tachycardic and septic upon this admission. His source initially was unclear. He also had a metabolic acidosis and hypoxic respiratory failure and thrombocytosis. He had a CT of the abdomen and pelvis, which revealed some bibasilar infiltrates, moderate right lower lobe infiltrates and atelectasis, also some gastric distention with fluid and food material suggestive of possibly a gastric outlet obstruction and possibly ischemic enteritis. The patient was admitted for sepsis. He was started empirically on Zosyn and fluid resuscitated under sepsis protocol. At that point, the etiology for sepsis was thought to be intraabdominal rather than respiratory. Because the patient was hypoxic and in respiratory failure, he was subsequently intubated and remained on empiric antibiotics. The patient's lactic acid was 4.3. The patient also had very low blood pressures and was requiring Levophed for pressure support. The patient was failing vent weaning and also had decreased urine output. He also appeared to have persistent gastric outlet obstruction and overall was doing poorly. Dr. Murillo, the ICU brass bobbin winder had a sloan discussion with the family regarding the patient's current prognosis. He was experiencing acute renal failure, had a significant anemia. He did have underlying dementia, persistent metabolic acidosis with pneumonia. At that point, the patient's family did update the MOLST to reflect DNR. The patient was subsequently extubated and taken off pressors. The family expressed a wish for comfort measures only. The family did not want aggressive measures and felt that his quality of life would be poorly impacted by a prolonged intubation and possibility of tracheostomy and prolonged need for ventilation. On the morning of 05/15/19, the patient also began having some additional respiratory distress. He did have increased respirations and some agonal breathing. 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 The patient's symptoms of respiratory distress and air hunger did improve with the continuous morphine infusion. The patient's family were at the bedside when ultimately the patient did at 11:13 this morning. PHYSICAL EXAM: Pupils fixed and dilated, no spontaneous respirations, asystole. DISPOSITION: . [facility] EDRS Certificate was completed. TIME SPENT: Forty five minutes on discharge and expiration planning and family counseling. JACQUELINE PINEDA NP [id number]/[facility] #: [id number] RHINA
== END 2019-05-15 11:13 | disposition expired | DRG 871 ==
LOC: ED 19:30 → ICU 05-12 00:14
PROVIDERS: ADMIT Internal Medicine; ATTEND Internal Medicine
PROC: 3E033XZ Introduction of Vasopressor into Peripheral Vein, Percutaneous Approach (ICD-10-PCS; principal; 2019-05-12)
DX: A41.9 Sepsis, unspecified organism (principal); J18.9 Pneumonia, unspecified organism; J96.01 Acute respiratory failure with hypoxia; E87.2 Acidosis; K55.9 Vascular disorder of intestine, unspecified; N17.9 Acute kidney failure, unspecified; R65.20 Severe sepsis without septic shock; E78.00 Pure hypercholesterolemia, unspecified; I10 Essential (primary) hypertension; F03.90 Unspecified dementia, unspecified severity, without behavioral disturbance, psychotic disturbance, mood disturbance, and anxiety; E83.51 Hypocalcemia; D47.3 Essential (hemorrhagic) thrombocythemia; D64.9 Anemia, unspecified; E87.6 Hypokalemia; Z66 Do not resuscitate; Z95.828 Presence of other vascular implants and grafts; Z91.013 Allergy to seafood; Z87.891 Personal history of nicotine dependence; Z82.5 Family history of asthma and other chronic lower respiratory diseases
CPT/HCPCS: 36415; 36600; 71045; 74177; 80048; 80053; 80202; 81003; 81015; 82150; 82803; 83605; 83690; 83880; 84484; 85025; 85027; 85610; 85730; 86140; 87040; 87070; 87205; 87493; 87641; 93005; 94002; 94003; 99285; A9270-GY; J0330; J0610; J1644; J2270; J2543; J2704; J3370; J3480; Q9967